=== PATIENT | male | born 1940 | race American Indian/Alaskan Native ===

== ENCOUNTER 2017-09-21 20:52 | Inpatient (IN) | payer OTHER ==
[2017-09-21] MEDS ORDERED: Albuterol-Ipratrop 3 mg / 0.5 (3 ml) UD IH STA (21:24)
--- NOTE | 2017-09-21 21:51 | ED PDOC ---
Arrival/HPI - General Chief Complaint: Shortness Of Breath Time Seen by Provider: 09/21/17 20:58 Historian: Patient - History of Present Illness Narrative History of Present Illness (Text): 09/21/17 21:17 A 77 year old male, whose past medical history includes diabetes mellitus and paroxysmal atrial fibrillation, presents to the emergency department complaining of shortness of breath. Patient reports symptom has been consistent for couple of days. Patient denies any chest pain, fever, chills, abdominal pain , or any other complaints. PMD: Dr. Terrell Victoria Time/Duration: < week (couple days) Symptom Onset: Sudden Symptom Course: Unchanged Past Medical History - Provider Review Nursing Documentation Reviewed: Yes - Cardiac Hx Congestive Heart Failure: Yes Hx Hypertension: Yes - Endocrine/Metabolic Hx Endocrine Disorders: Yes Hx Diabetes Mellitus Type 2: Yes - Psychiatric Hx Psychophysiologic Disorder: No Hx Substance Use: No - Surgical History Other/Comment: hernia repair Family/Social History - Physician Review Nursing Documentation Reviewed: Yes Family/Social History: No Known Family HX Smoking Status: Former Smoker Hx Alcohol Use: Yes Frequency of alcohol use: Socially Hx Substance Use: No Allergies/Home Meds Allergies/Adverse Reactions: Allergies No Known Allergies Allergy (Verified 09/21/17 21:02) Home Medications: Home Meds Medication Instructions Recorded Confirmed Apixaban [Eliquis] 5 mg PO BID 09/21/17 09/21/17 Atorvastatin [Lipitor] 20 mg PO DAILY 09/21/17 09/21/17 Digoxin [Digitek] 125 mcg PO DAILY 09/21/17 09/21/17 Furosemide [Lasix] 20 mg PO DAILY 09/21/17 09/21/17 Metformin HCl [Glucophage] 500 mg PO BID 09/21/17 09/21/17 Metoprolol Succinate [Toprol Xl] 50 mg PO DAILY 09/21/17 09/21/17 Review of Systems - Physician Review All systems were reviewed & negative as marked: Yes - Review of Systems Constitutional: absent: Fevers, Night Sweats Respiratory: SOB Cardiovascular: absent: Chest Pain Gastrointestinal: absent: Abdominal Pain Physical Exam Vital Signs Reviewed: Yes Vital Signs Temp Pulse Resp BP Pulse Ox 09/21/17 22:41 149/65 09/21/17 21:53 80 21 135/70 100 09/21/17 21:02 98.4 F 86 22 167/67 H 100 Temperature: Afebrile Blood Pressure: Hypertensive Pulse: Regular Respiratory Rate: Normal Appearance: Positive for: Well-Appearing Pain Distress: None Mental Status: Positive for: Alert and Oriented X 3 Finger Stick Blood Glucose: 121 - Systems Exam Ears: Present: Normal Mouth: Present: Moist Mucous Membranes Pharnyx: Present: Normal Respiratory/Chest: Present: Rhonchi (bilaterally) Cardiovascular: Present: Regular Rate and Rhythm Abdomen: Present: Normal Bowel Sounds. No: Tenderness, Distention, Peritoneal Signs Lower Extremity: Present: Edema (+1 pitting edema) Neurological: Present: GCS=15, CN II-XII Intact, Speech Normal, Other (no focal neurological deficits) Medical Decision Making ED Course and Treatment: 09/21/17 21:22 Impression: 77 year old male with shortness of breath. Physical exam shows rhonchi bilaterally; +1 pitting edema to lower extremities. Plan: -- EKG -- Chest X-ray -- Labs -- Duoneb -- Nasal Cannula O2 -- Reassess and disposition Progress Notes: 09/21/2017 22:30 Chest X-ray shows increased pulmonary markings. 09/21/17 23:[address] Joshi, whom accepts patient into service. Patient placed into telemetry bed. Dr. Vaughan consult requested. - Lab Interpretations Lab Results: 09/21/17 21:00 09/21/17 21:00 Lab Results 09/21/17 21:00: Digoxin 0.6 L 09/21/17 21:00: Sodium 150 H, Potassium 4.1, Chloride 106, Carbon Dioxide 34 H, Anion Gap 14, BUN 21, Creatinine 1.0, Est GFR ( Amer) > 60, Est GFR (Non- Af Amer) > 60, Random Glucose 127 H, Calcium 8.9, Total Bilirubin 0.5, AST 48, ALT 31, Alkaline Phosphatase 89, Lactate Dehydrogenase 672, Total Creatine Kinase 69, Troponin I 0.04, NT-Pro-B Natriuret Pep 1860 H, Total Protein 7.5, Albumin 3.7, Globulin 3.8, Albumin/Globulin Ratio 1.0 L 09/21/17 21:00: PT 17.2 H, INR 1.50 H, APTT 33.3 09/21/17 21:00: WBC 9.6, RBC 4.28, Hgb 10.6 L, Hct 31.8 L, MCV 74.3 L, MCH 24.8 L, MCHC 33.3, RDW 18.7 H, Plt Count 374, MPV 10.3, Gran % 78.3 H, Lymph % (Auto ) 16.1 L, Titus % (Auto) 4.8, Eos % (Auto) 0.6 L, Baso % (Auto) 0.2, Gran # 7.52 H, Lymph # (Auto) 1.6, Titus # (Auto) 0.5, Eos # (Auto) 0.1, Baso # (Auto) 0.02 I have reviewed the lab results: Yes - RAD Interpretation Radiology Orders: 09/21/17 21:22 CHEST PORTABLE [RAD] Stat - Medication Orders Current Medication Orders: Discontinued Medications Albuterol/Ipratropium (Duoneb 3 Mg/0.5 Mg (3 Ml) Ud) 3 ml IH ONCE STA Stop: 09/21/17 21:25 Last Admin: 09/21/17 21:33 Dose: 3 ml Furosemide (Lasix) 40 mg IVP ONCE ONE Stop: 09/21/17 22:17 Last Admin: 09/21/17 22:41 Dose: 40 mg MAR Blood Pressure Document 09/21/17 22:41 CNR (Rec: 09/21/17 22:41 CNR [id number]) Blood Pressure Blood Pressure (100/60-150/90 mm Hg) 149/65 IVP Administration Document 09/21/17 22:41 CNR (Rec: 09/21/17 22:41 CNR [id number]) Charges for Administration # of IVP Administrations 1 - Scribe Statement The provider has reviewed the documentation as recorded by the Hira Caballero Provider Scribe Attestation: All medical record entries made by the Delfinoiblavelle were at my direction and personally dictated by me. I have reviewed the chart and agree that the record accurately reflects my personal performance of the history, physical exam, medical decision making, and the department course for this patient. I have also personally directed, reviewed, and agree with the discharge instructions and disposition. Disposition/Present on Arrival - Present on Arrival Any Indicators Present on Arrival: No History of DVT/PE: No History of Uncontrolled Diabetes: No Urinary Catheter: No History of Decub. Ulcer: No History Surgical Site Infection Following: None - Disposition Have Diagnosis and Disposition been Completed?: Yes Diagnosis: CHF (congestive heart failure) Disposition: HOSPITALIZED Disposition Time: 22:59 Patient Plan: Admission Patient Problems: Current Active Problems Problem Status Onset CHF (congestive heart failure) Acute Condition: STABLE Discharge Instructions (ExitCare): Heart Failure (ED) Referrals: Terrell Victoria MD [Primary Care Provider] - Follow up with primary Forms: [facility] ([place])
[2017-09-21 21:55] LABS: BASO # 0.02 K/mm3 (0.0-2.0); BASO % 0.2 % (0.0-3.0); EOS # 0.1 (0.0-0.7); EOS % 0.6 % (1.5-5.0); GRAN # 7.52 (1.4-6.5); GRAN % 78.3 % (50.0-68.0); HEMOGLOBIN 10.6 g/dL (14.0-18.0); LYMPH # 1.6 (1.2-3.4); LYMPH % 16.1 % (22.0-35.0); MEAN CELL VOLUME 74.3 fl (80.0-105.0); MEAN CORPUSCULAR HEMOGLOBIN 24.8 pg (25.0-35.0); MEAN CORPUSCULAR HGB CONC 33.3 g/dl (31.0-37.0); MEAN PLATELET VOLUME 10.3 fl (7.0-11.0); MONO # 0.5 (0.1-0.6); MONO % 4.8 % (1.0-6.0); RBC 4.28 10^6/uL (3.5-6.1); RED CELL DISTRIBUTION WIDTH 18.7 % (11.5-14.5); WHITE BLOOD COUNT 9.6 10^3/ul (4.5-11.0)
[2017-09-21 22:00] LABS: ALBUMIN 3.7 g/dL (3.0-4.8); ALT/SGPT 31 U/L (7-56); AST/SGOT 48 U/L (17-59); BLOOD UREA NITROGEN 21 mg/dL (7-21); CALCIUM 8.9 mg/dL (8.4-10.5); GFR AFRICAN-AMERICAN > 60; GFR NON-AFRICAN AMERICAN > 60
[2017-09-21 22:11] LABS: INR 1.5 (0.93-1.08); PARTIAL THROMBOPLASTIN TIME 33.3 Seconds (25.1-36.5); PROTHROMBIN TIME 17.2 SECONDS (9.4-12.5)
[2017-09-21 22:18] LABS: B-TYPE NATRIURETIC PEPTIDE 1860 pg/mL (0-450); TROPONIN I 0.04 ng/mL
[2017-09-21] MEDS ORDERED: Albuterol-Ipratrop 3 mg / 0.5 (3 ml) UD IH PRN (22:59)
[2017-09-22 02:19] VITALS: BMI 39.1
--- NOTE | 2017-09-22 08:28 | RAD ---
HISTORY: sob COMPARISON: No prior study for comparison. FINDINGS: LUNGS: There are scattered linear and nodular opacities in the lungs more prominent at the lower lobes may be due to pulmonary venous congestion. PLEURA: No significant pleural effusion identified, no pneumothorax apparent. CARDIOVASCULAR: Normal. OSSEOUS STRUCTURES: No significant abnormalities. VISUALIZED UPPER ABDOMEN: Normal. OTHER FINDINGS: None. IMPRESSION: Baseline portable study. Reticulonodular opacities in the lungs more prominent in the lower lobes may be due to pulmonary venous congestion. Follow-up study is suggested.
[2017-09-22] MEDS: Insulin Reg-MEDIUM-Coverage SC SCH ×4 (09:58→19:00)
[2017-09-22] MEDS: Metoprolol Succinate 50 mg XL Tab PO SCH (10:00)
[2017-09-22] MEDS: Digoxin 125 mcg (0.125 mg) Tab PO SCH (10:03)
[2017-09-22] MEDS ORDERED: Morphine 4 mg/ml ISec IVP STA (10:59)
[2017-09-22 11:03] LABS: ARTERIAL BLOOD GAS HCO3 34.2 mmol/L (21-28); ARTERIAL BLOOD GAS PH 7.25 (7.35-7.45); ARTERIAL BLOOD GAS TCO2 36.6 mmol.L (22-28)
[2017-09-22 11:04] LABS: ARTERIAL BLOOD GAS PCO2 78 mm/Hg (35-45)
[2017-09-22] MEDS ORDERED: Albuterol-Ipratrop 3 mg / 0.5 (3 ml) UD IH PRN (11:32)
[2017-09-22 11:40] LABS: BASO # 0.03 K/mm3 (0.0-2.0); BASO % 0.2 % (0.0-3.0); EOS # 0.2 (0.0-0.7); EOS % 1.6 % (1.5-5.0); GRAN # 6.54 (1.4-6.5); GRAN % 53.2 % (50.0-68.0); HEMOGLOBIN 11.7 g/dL (14.0-18.0); LYMPH # 4.9 (1.2-3.4); MEAN CELL VOLUME 75.4 fl (80.0-105.0); MEAN CORPUSCULAR HEMOGLOBIN 25.1 pg (25.0-35.0); MEAN CORPUSCULAR HGB CONC 33.2 g/dl (31.0-37.0); MEAN PLATELET VOLUME 9.9 fl (7.0-11.0); MONO # 0.6 (0.1-0.6); RBC 4.67 10^6/uL (3.5-6.1); RED CELL DISTRIBUTION WIDTH 18.9 % (11.5-14.5); WHITE BLOOD COUNT 12.3 10^3/ul (4.5-11.0)
--- NOTE | 2017-09-22 11:41 | PCM.RRT ---
<Hallie Sanders - Last Filed: 09/22/17 11:30> FLIGHT OPERATIONS MANAGER Nurse Assessment - Situation Date: 09/22/17 Time FLIGHT OPERATIONS MANAGER was called: 10:40 FLIGHT OPERATIONS MANAGER Responder Arrival Time: 10:41 FLIGHT OPERATIONS MANAGER Location:: [facility] FLIGHT OPERATIONS MANAGER Reason for Call: Respiratory Distress FLIGHT OPERATIONS MANAGER Called By: RN - IV IV Inserted during FLIGHT OPERATIONS MANAGER?: No - Respiratory Oxygen Delivery Method: Non Rebreather @% Oxygen Flow Rate: 15 Received Nebulizer Treatments:: No Was the Patient Ventilated with Bag/Mask 100% O2?: Yes Secretions Suctioned?: No Was the Patient Intubated?: No Was the Patient Placed on a Ventilator?: No - Medication Medications Administered During FLIGHT OPERATIONS MANAGER: Lasix 40 mg IV - 10:53 am and 11:00 am. Nitro S/L 0.4 mg - 11:00 am - Diagnostic Test Ordered EKG: Yes Chest X-Ray: No CT Scan: No - Stat Labs Ordered FLIGHT OPERATIONS MANAGER Stat Labs Ordered: CBC, BMP, TROPONIN, LACTIC ACID, ABG CPR started during FLIGHT OPERATIONS MANAGER?: No - Vital Signs Vital Sign: Rapid Response Vital Sign Blood Pressure 181/79 Pulse Rate 78 Respiratory Rate 34 Oxygen Saturation 95 - Finger Stick Blood Glucose Finger Stick Blood Glucose: 134 - Time FLIGHT OPERATIONS MANAGER Ended Time FLIGHT OPERATIONS MANAGER Ended: 11:05 - Recommendations 5) FLIGHT OPERATIONS MANAGER Level of Care Recommendations: Transfer to ICU Notifications: Attending Physician I.Reason for FLIGHT OPERATIONS MANAGER - A) Acute Change in Patient: Subjective: respiratory distress - Neurological Status (Select all that apply): Alert, Responsive - Respiratory Oxygen Delivery Method: Non Rebreather @% Oxygen Flow Rate: 15 - Constitutional Appears: In Acute Distress - Head Head Exam: ATRAUMATIC, NORMAL INSPECTION, NORMOCEPHALIC - Eyes Eye Exam: Normal appearance. absent: Conjunctival injection, Scleral icterus - Respiratory Exam Respiratory Exam: Rales, Wheezes, Respiratory Distress. absent: Clear to Ausculation Bilateral - Cardiovascular Exam Cardiovascular Exam: Tachycardia, +S1, +S2, Murmur - GI/Abdominal Exam GI & Abdominal Exam: Soft. absent: Tenderness - Neurological Exam Neurological Exam: Alert, Awake - Extremities Exam Extremities Exam: Pedal Edema Plan - Assessment of Findings&Treatment Plan FLIGHT OPERATIONS MANAGER called at 10:43 am by RN at bedside while patient was getting an echo. House doc, iron guardrail installer residents, and attending physician responded immediately. As per RN at bedside, patient became acutely short of breath and agitated. Upon entering the room, patient was seen on nonrebreather at 100%, visibly in distress and diaphoretic. Patient was oriented and responding to questions appropriately- he complained of chest tightness, SOB, and feeling nauseous. STAT labs [CMP, Mg, Phos, Troponin, ABG shock panel] and EKG were ordered. Patient was hypertensive and tachycardic. Respiratory exam was positive for b/l wheezing and rales and patient was breathing using accessory muscles. Patient was given Lasix 80mg ivp, Nitro 0.4mg sl, and 1 breathing treatment. Patient's abg returned showing hypercapnic respiratory acidosis. ICU log loader helper Dr. Rothman came to evaluate patient and it was deemed he required transfer to the ICU. Patient was transported to the ICU and placed on BiPAP (18, 5, 100). O2 sat improved and patient was less agitated. Patient was given 60mg ivp solumedrol and 1 breathing treatment in the unit. STAT CXR was ordered and pineda was inserted. PMD Dr. Rothman aware of patient condition and transfer to the unit. Further management as per ICU team. <Wayne Snell - Last Filed: 09/22/17 13:43> FLIGHT OPERATIONS MANAGER Nurse Assessment - Vital Signs Vital Sign: Rapid Response Vital Sign Blood Pressure 181/79 Pulse Rate 78 Respiratory Rate 34 Oxygen Saturation 95 Attending/Attestation - Attestation I have personally seen and examined this patient.: Yes I have fully participated in the care of the patient.: Yes I have reviewed all pertinent clinical information, including history, physical exam and plan: Yes Notes (Text): 09/22/17 13:41 Patient was seen and examined with medical office representative during rapid response. Agreed with assessment and plan. 77 yrs old male with acute Resp failure likely due to acute Pulmonary edema. IV lasix has been given,Nebs and IV steroid has been given. EKG was reviewed. Case was discussed with ICU attending and patient is transferred to ICU. Time spend 30 minuets..
[2017-09-22 11:51] LABS: ALBUMIN 4.1 g/dL (3.0-4.8); ALT/SGPT 37 U/L (7-56); AST/SGOT 43 U/L (17-59); BLOOD UREA NITROGEN 18 mg/dL (7-21); CALCIUM 9.2 mg/dL (8.4-10.5); GFR AFRICAN-AMERICAN > 60; GFR NON-AFRICAN AMERICAN > 60; MAGNESIUM 2.3 mg/dL (1.7-2.2)
[2017-09-22 12:01] LABS: TROPONIN I 0.02 ng/mL
--- NOTE | 2017-09-22 12:03 | RAD ---
HISTORY: acute shortness of breath COMPARISON: 09/21/2017 FINDINGS: LUNGS: There is a diffuse alveolar infiltrate. This could represent pulmonary edema or pneumonia. Clinical correlation PLEURA: No significant pleural effusion identified, no pneumothorax apparent. CARDIOVASCULAR: Normal. OSSEOUS STRUCTURES: No significant abnormalities. VISUALIZED UPPER ABDOMEN: Normal. OTHER FINDINGS: None. IMPRESSION: There is a diffuse alveolar infiltrate. This could represent pulmonary edema or pneumonia. Clinical correlation
[2017-09-22] MEDS ORDERED: Nitroglycerin 50mg in D5W 50 MG/250 ML BOTTLE IV ONE (12:05)
[2017-09-22] MEDS ORDERED: Nitroglycerin 50mg in D5W 50 MG/250 ML BOTTLE IV PRN (12:05)
[2017-09-22] MEDS ORDERED: Metoprolol 1 mg/ml Inj IVP ONE (12:20)
[2017-09-22] MEDS ORDERED: diltiaZEM IVPB 100mg in NS 100 ML IV PRN (12:33)
[2017-09-22 12:47] LABS: ARTERIAL BLOOD GAS HCO3 32.2 mmol/L (21-28); ARTERIAL BLOOD GAS O2 SAT 99.4 % (95-98); ARTERIAL BLOOD GAS PCO2 67 mm/Hg (35-45); ARTERIAL BLOOD GAS PH 7.29 (7.35-7.45); ARTERIAL BLOOD GAS TCO2 34.3 mmol.L (22-28)
[2017-09-22] MEDS: cefTRIAXone 1 gm 1 GM/100 ML BAG IVPB SCH (16:25)
[2017-09-22] MEDS: Azithromycin 500MG/NS 250ml 500 MG/250 ML BAG IVPB SCH (16:26)
[2017-09-22] MEDS: Albuterol-Ipratrop 3 mg / 0.5 (3 ml) UD IH SCH ×3 (16:46→23:34)
--- NOTE | 2017-09-22 17:53 | CON ---
DATE: 09/22/2017 CARDIOLOGY CONSULTATION HISTORY OF PRESENT ILLNESS: The patient is a 77-year-old male who presents with exertional shortness of breath as well as progressing the shortness of breath at rest. He denies chest pain. PAST MEDICAL HISTORY: Includes recently placed on anticoagulation at [facility] for what was described as atrial fibrillation. He also was admitted there recently for an episode of CHF. The patient's past medical history is free of myocardial infarctions in the past. He suffers from diabetes mellitus, hypertension, and hypercholesterolemia. He denies chest pain. SOCIAL HISTORY: The patient does not smoke. The patient is an systems accountant, working in the [employer] REVIEW OF SYSTEMS: A 14-point review of systems is reviewed in detail. Besides dyspnea and pedal edema, there are no other cardiac symptoms noted. PHYSICAL EXAMINATION: VITAL SIGNS: Blood pressure 146/51, the heart rate in the 60s, normal sinus rhythm. NECK: Negative JVD. LUNGS: Crackles at the bases. HEART: Reveals S1, S2 with a 2/6 systolic ejection murmur as well as a 3/6 diastolic murmur. EXTREMITIES: 1 to 2 plus edema. EKG shows normal sinus rhythm with nonspecific ST-T changes. LABORATORY DATA: Hemoglobin is 10.6. ProBNP is 1860. Troponin is negative x1. Glucose is 127. IMPRESSION: 1. Acute systolic congestive heart failure. 2. Pedal edema. 3. Aortic insufficiency. 4. Paroxysmal atrial fibrillation. 5. Diabetes mellitus. 6. Hypertension. 7. Hypercholesterolemia. Given these findings, we will increase his Lasix to 40 IV b.i.d. We will obtain an echocardiogram to evaluate his LV function as well as his aortic insufficiency. Tony Vaughan MD
[2017-09-22] MEDS: MethylPREDNISolone 40 mg Vial IVP SCH ×2 (17:57→22:00)
--- NOTE | 2017-09-22 18:05 | HP ---
HISTORY OF PRESENT ILLNESS: I was called down to the emergency room to see Mr. Sutton. He is a 77-year-old -[place] man who came to the emergency department with shortness of breath that had been consistent for a couple of days. His legs are getting swollen. PAST MEDICAL HISTORY: He has a medical history of diabetes, atrial fibrillation, congestive heart failure in the past. He has got hypertension, diabetes, heart failure. FAMILY HISTORY: He has hypertension in the family and diabetes in the family. SOCIAL HISTORY: He is a former smoker. He still drinks alcohol socially. No substance abuse. ALLERGIES: HE HAS NO KNOWN DRUG ALLERGIES. MEDICATIONS: He takes Eliquis, Lipitor for high cholesterol, digoxin, Lasix, Glucophage and Toprol. REVIEW OF SYSTEMS: No acute vision or hearing changes. No sore throat. No chest pain or palpitation, but he is short of breath with dyspnea on exertion. His legs are very swollen. No abdominal pain, nausea, vomiting, constipation, diarrhea. Skin for the most part is intact. No rashes or ulcers he appreciates. Not anxious. No sweating. He is comfortable. PHYSICAL EXAMINATION: VITAL SIGNS: He has got 98.4 temp, 86 pulse, 22 respiratory rate, 167/67 blood pressure, 100% O2 sat on 2 L. HEENT: His head is atraumatic, normocephalic. He is alert and oriented x3. He is sitting out of bed. He cannot lie down flat at this time. His eyes: Extraocular muscles are intact. Pupils equal, reactive to light and accommodation. Throat is moist. NECK: Supple. HEART: Regular rate. LUNGS: Decreased breath sounds, congestion, rales bilaterally, rhonchi, changes with cough. He told me that the medicine I gave him made him pee, is making him feel better. ABDOMEN: Soft, nontender. Positive bowel sounds. No guarding. No rebound. No CVA tenderness, but he is obese. EXTREMITIES: +2/4 pitting edema bilateral to the ankles. GCS is 15. Cranial nerves II through XII grossly intact. Speech is normal. SKIN: For the most part that I could tell is intact. No apparent rashes or ulcers. LYMPHATICS: Thyroid midline. No appreciable lymphadenopathy. LABORATORY DATA: He had a lot of tests done in the emergency room. He has a 150 sodium, potassium 4.1, BUN 21, creatinine 1, GFR is greater than 60, sugar is 127, calcium is 8.9, total bili is 0.5, AST is 48, ALT is 31, alk phos is 89, lactate dehydrogenase is 672, total creatine kinase is 69. Troponin I is 0.04. BNP is high at 1860, total protein 7.5. He has an INR of 1.5. He has a 9.6 white count, 10.6 hemoglobin, 31.8 hematocrit with a 374 platelets. There is a chest x-ray pending. IMPRESSION AND PLAN: He will have a consult with Cardiology. He will be on intravenous Lasix, insulin coverage, oxygen, physical therapy. He is having a hard time walking, he tells me. He is here for congestive heart failure, medicines and maybe some physical therapy. We will continue aggressive treatment and care on Loy Sutton. Poli Joshi DO
--- NOTE | 2017-09-22 19:12 | CARD ---
APPROVED REPORT EXAM: Two-dimensional and M-mode echocardiogram with Doppler and color Doppler. INDICATION Congestive Heart Failure 2D DIMENSIONS Left Atrium (2D)4.2 (1.6-4.0cm)IVSd1.4 (0.7-1.1cm) LVDd5.6 (3.9-5.9cm)PWd1.3 (0.7-1.1cm) LVDs3.7 (2.5-4.0cm)FS (%) 33.8 % LVEF (%)62.0 (>50%) M-Mode DIMENSIONS Aortic Root3.40 (2.2-3.7cm)Aortic Cusp Exc.2.10 (1.5-2.0cm) Aortic Valve AoV Peak Hxlfgidf130.0cm/Soraya Peak GR.20mmHg Mitral Valve E/A ratio0.0 TDI E/Lateral E'0.0E/Medial E'0.0 Tricuspid Valve TR Peak [id number] [id number] Peak Gr.72mmHg [id number] LEFT VENTRICLE The left ventricle is normal size. There is mild concentric left ventricular hypertrophy. The left ventricular function is normal. The left ventricular ejection fraction is within the normal range. There is normal LV segmental wall motion. Transmitral Doppler flow pattern is Grade I-abnormal relaxation pattern. RIGHT VENTRICLE The right ventricle is normal size. There is normal right ventricular wall thickness. The right ventricular systolic function is normal. ATRIA The left atrium is mildly dilated. The right atrium is mildly dilated. AORTIC VALVE The aortic valve is mildly sclerotic. There is moderate aortic regurgitation. MITRAL VALVE The mitral valve is mildly thickened. Mitral regurgitation is mild to moderate. TRICUSPID VALVE There is severe pulmonary hypertension. GREAT VESSELS The aortic root is normal in size. PERICARDIAL EFFUSION There is a trace loculated anterior pericardial effusion. <Conclusion> The left ventricle is normal size. There is mild concentric left ventricular hypertrophy. The left ventricular function is normal. The left ventricular ejection fraction is within the normal range. There is normal LV segmental wall motion. Transmitral Doppler flow pattern is Grade I-abnormal relaxation pattern. There is moderate aortic regurgitation. Mitral regurgitation is mild to moderate. There is severe pulmonary hypertension.
--- NOTE | 2017-09-22 21:10 | CARD ---
APPROVED REPORT EKG Measurement Heart [id number] <Conclusion> Sinus tachycardia Nonspecific ST abnormality Abnormal ECG
--- NOTE | 2017-09-22 22:12 | CARD ---
APPROVED REPORT EKG Measurement Heart [id number] <Conclusion> Normal sinus rhythm Possible Left atrial enlargement Borderline ECG
--- NOTE | 2017-09-23 01:06 | CON ---
DATE: 09/22/2017 HISTORY OF PRESENT ILLNESS: This is a 77-year-old gentleman with history of diabetes mellitus type 2, paroxysmal atrial fibrillation - on Eliquis, who presented to emergency department yesterday with shortness of breath, which was progressively getting worse over the last couple of days. He denies any cough or chest pains. He also denies chest tightness associated with it. Of note, he was discharged from [facility] where he had to be intubated for severe community-acquired pneumonia. After discharge and initial improvement, his respiratory complaints started to recur, and it culminated with admission to [facility] ER and then hospital. PAST MEDICAL HISTORY: Paroxysmal atrial fibrillation, hypertension, CHF, diabetes mellitus type 2. SOCIAL HISTORY: The patient is a former smoker. No alcohol or illicit drug abuse. ALLERGIES: NKDA. HOME MEDICATIONS: Eliquis, Lipitor, digoxin, Lasix, metformin, and metoprolol. FAMILY HISTORY: Noncontributory. REVIEW OF SYSTEMS: Review of 12-organ system other than mentioned in history of present illness is negative. PHYSICAL EXAMINATION: VITAL SIGNS: Heart rate 75, respiratory rate 24, oxygen saturation 100% on 60% FIO2, the patient is on BiPAP 18/5 with FIO2 60%, blood pressure 141/84. HEENT: Head and neck atraumatic. LUNGS: Clear to auscultation bilaterally (the patient got substantial improvement on treatment with bronchodilators, steroids, Lasix, and application of BiPAP). The patient has been wheezing prior to urgent measures as outlined above. ABDOMEN: Soft, nontender, nondistended. MUSCULOSKELETAL: 1+ bilateral pedal and ankle edema. NEUROLOGIC: The patient moves all extremities spontaneously. SKIN: Moist. PSYCHIATRIC: The patient was initially in moderate respiratory distress; however, not in distress any more, and clinically substantially improved. LABORATORY DATA: WBC 12.3, hemoglobin 11.7, platelet count 434. ABG prior to BiPAP, 7.25/78/231 on 100% FIO2, lactic acid 1.7. After application of BiPAP, pH 7.29/67/121, FIO2 still 100% (however, later tapered down to 60%), lactic acid 1.2. Sodium 150, potassium 4.6, chloride 103, carbon dioxide 34, BUN 18, creatinine 1.0, glucose 213, AST 43, ALT 37, total bilirubin 0.8. Troponin 0.02, down from 0.04. ProBNP 1860. Digoxin 0.6. INR 1.5. PTT 33.3. MEDICATIONS: DuoNeb p.r.n. and every 4 hours, Eliquis 5 mg p.o. b.i.d., Lipitor, Cardizem drip, digoxin, Lasix 40 mg IV b.i.d., regular insulin sliding scale medium protocol, Solu-Medrol 40 mg IV q.8, metoprolol, nitroglycerin, Protonix, ceftriaxone, azithromycin. Chest x-ray showed diffuse alveolar infiltrates; pulmonary edema versus infectious etiology cannot be ruled out. Echocardiogram was done earlier, official report is pending; however, preliminary view did not show severe left ventricular systolic or diastolic dysfunction. No right ventricular dilatation or hypokinesis. ASSESSMENT AND PLAN: This is a 77-year-old gentleman, who presented with combined hypercapnic and hypoxemic respiratory failure, which substantially improved after application of BiPAP, bronchodilators, steroids, antibiotics, and diuretics. The patient is not diaphoretic. He is not in respiratory or otherwise distress. We will gradually taper down his noninvasive positive pressure ventilatory support. We will gradually decrease FIO2 supplementation. We will continue with conservative fluid and oxygen management. We will continue with steroid taper, bronchodilators, and antibiotics. Daily chest x-ray. We will get urine for streptococcal and Legionella antigen. Blood culture, urine culture and procalcitonin was ordered. EKG did not show specific ischemic changes. Troponin x2 negative since yesterday. The patient does not have any chest pain. We will continue with therapeutic anticoagulation with Eliquis, which makes VTE/PE/DVT as well as acute primary coronary event less likely. We will continue with GI prophylaxis. ccm time 40 min Mainor Rothman MD MTDD
[2017-09-23] MEDS: Insulin Reg-MEDIUM-Coverage SC SCH ×5 (04:10→20:56)
[2017-09-23] MEDS: Albuterol-Ipratrop 3 mg / 0.5 (3 ml) UD IH SCH ×4 (04:22→20:38)
[2017-09-23] MEDS: MethylPREDNISolone 40 mg Vial IVP SCH ×3 (06:12→21:01)
--- NOTE | 2017-09-23 06:48 | CP.CCUPN ---
<Payton Stallings - Last Filed: 09/23/17 11:44> CCU Subjective - Physician Review Subjective (Free Text): 09/23/17 08:32 Patient with no acute events overnight. Was on bipap all night and continued to improve. This AM patient states he's feeling much better. States the sob has resolved. Denies chest pain, abdominal pain, nausea, vomiting or diarrhea. Critical Care Time Spent (in minutes): 45 CCU Objective - Vital Signs / Intake & Output Vital Signs (Last 4 hours): Vital Signs Pulse Resp BP Pulse Ox 09/23/17 06:20 72 21 100 09/23/17 06:10 72 23 100 09/23/17 06:01 85 24 109/51 L 76 L 09/23/17 06:00 81 26 H 91 L 09/23/17 05:50 77 19 100 09/23/17 05:40 81 27 H 97 09/23/17 05:30 75 20 99 09/23/17 05:20 74 22 100 09/23/17 05:10 98 H 31 H 100 09/23/17 05:00 78 23 136/56 L 99 09/23/17 04:50 77 23 100 09/23/17 04:40 74 20 100 09/23/17 04:30 75 22 100 09/23/17 04:20 75 24 100 09/23/17 04:10 76 22 100 09/23/17 04:00 80 25 H 146/61 100 09/23/17 03:50 65 20 99 09/23/17 03:40 60 21 100 09/23/17 03:30 62 21 99 09/23/17 03:20 64 16 100 09/23/17 03:10 59 L 16 100 09/23/17 03:00 64 16 118/59 L 100 09/23/17 02:50 66 22 100 Intake and Output (Last 8hrs): Intake & Output 09/22/17 09/22/17 09/23/17 14:59 22:59 06:59 Intake Total 620 Output Total 1200 Balance -580 Intake: IV 380 Left Hand 380 Oral 240 Output: Urine 1200 Urethral ([place]) 1200 - Physical Exam Head: Positive for: Atraumatic, Normocephalic Pupils: Positive for: PERRL Extroacular Muscles: Positive for: EOMI Conjunctiva: Positive for: Normal Ears: Positive for: Normal Mouth: Positive for: Moist Mucous Membranes Pharnyx: Positive for: Normal Respiratory/Chest: Positive for: Clear to Auscultation, Good Air Exchange. Negative for: Respiratory Distress, Accessory Muscle Use, Wheezes, Decreased Breath Sounds, Rales, Retracting, Rhonchi, Tachypneic, Tender to Palpation Cardiovascular: Positive for: Regular Rate and Rhythm, Murmurs, Normal S1, S2, Irregular Rhythm. Negative for: Tachycardic, Bradycardic, Rub, Muffled Abdomen: Positive for: Normal Bowel Sounds, Other (obese abdomen.). Negative for: Tenderness, Distention, Peritoneal Signs Lower Extremity: Positive for: Edema (+1 pitting edema) Neurological: Positive for: GCS=15, CN II-XII Intact, Speech Normal, Other (no focal neurological deficits) Skin: Positive for: Dry, Normal Color Psychiatric: Positive for: Alert, Oriented x 3, Normal Insight, Normal Concentration - Medications Active Medications: Active Medications Generic Name Dose Route Start Last Admin Trade Name Freq PRN Reason Stop Dose Admin Albuterol/Ipratropium 3 ml 09/22/17 15:30 09/23/17 04:22 Duoneb 3 Mg/0.5 Mg (3 Ml) Ud IH 3 ml [id number] CARMINA Administration Albuterol/Ipratropium 3 ml 09/22/17 11:32 Duoneb 3 Mg/0.5 Mg (3 Ml) Ud IH Q2H PRN Shortness of Breath Apixaban 5 mg 09/22/17 10:00 09/22/17 18:06 Eliquis PO 5 mg BID CARMINA Administration Protocol Atorvastatin Calcium 20 mg 09/22/17 10:00 09/22/17 14:04 Lipitor PO Not Given DAILY CARMINA Digoxin 0.125 mg 09/22/17 10:00 09/22/17 10:03 Digoxin PO Not Given DAILY CARMINA Furosemide 40 mg 09/22/17 10:00 09/22/17 18:06 Lasix IVP 40 mg BID CARMINA Administration Ceftriaxone Sodium 1 gm in 100 mls @ 100 mls/hr 09/22/17 11:45 09/22/17 16:25 Rocephin 1 Gram Ivpb IVPB 100 mls/hr DAILY CARMINA Administration Protocol Azithromycin 500 mg in 250 mls @ 167 mls/hr 09/22/17 11:45 09/22/17 16:26 Zithromax 500mg In Ns IVPB 167 mls/hr DAILY CARMINA Administration Protocol Nitroglycerin/Dextrose 50 mg in 250 mls @ 1.5 mls/hr 09/22/17 12:05 Nitroglycerin 50 Mg/250 Ml D5w IV .Q24H PRN Pain, moderate (4-7) Protocol 5 MCG/MIN diltiaZEM IVPB 100mg in NS 100 mls @ 5 mls/hr 09/22/17 12:33 Cardizem 100mg In Ns IV .Q20H PRN TITRATE PER MD ORDER Protocol 5 MG/HR Insulin Human Regular 0 units 09/22/17 15:00 09/23/17 04:10 Humulin R Med SC Not Given Q4H CARMINA Protocol Methylprednisolone 40 mg 09/22/17 14:00 09/23/17 06:12 Solu-Medrol IVP 40 mg Q8 CARMINA Administration Metoprolol Succinate 50 mg 09/22/17 10:00 09/22/17 10:00 Toprol Xl PO Not Given DAILY CARMINA Pantoprazole Sodium 40 mg 09/23/17 10:00 Protonix Inj IVP DAILY CARMINA - Patient Studies Lab Studies: Lab Studies 09/23/17 09/22/17 09/22/17 Range/Units 06:17 20:33 16:46 WBC (4.5-11.0) 10^3/ul RBC (3.5-6.1) 10^6/uL Hgb (14.0-18.0) g/dL Hct (42.0-52.0) % MCV (80.0-105.0) fl MCH (25.0-35.0) pg MCHC (31.0-37.0) g/dl RDW (11.5-14.5) % Plt Count (120.0-450.0) 10^3/uL MPV (7.0-11.0) fl Gran % (50.0-68.0) % Lymph % (Auto) (22.0-35.0) % [place] % (Auto) (1.0-6.0) % Eos % (Auto) (1.5-5.0) % Baso % (Auto) (0.0-3.0) % Gran # (1.4-6.5) Lymph # (Auto) (1.2-3.4) [place] # (Auto) (0.1-0.6) Eos # (Auto) (0.0-0.7) Baso # (Auto) (0.0-2.0) K/mm3 D-Dimer, Quantitative (0-243) ng/mL pCO2 (35-45) mm/Hg pO2 (80-100) mm/Hg HCO3 (21-28) mmol/L ABG pH (7.35-7.45) ABG Total CO2 (22-28) mmol.L ABG O2 Saturation (95-98) % ABG Base Excess (-2.0-3.0) mmol/L ABG Potassium (3.6-5.2) mmol/L Sodium (132-148) mmol/L Chloride (98-107) mmol/L Glucose (75-110) mg/dl Lactate (0.7-2.1) mmol/L FiO2 % Potassium (3.6-5.0) mmol/L Carbon Dioxide (21-33) mmol/L Anion Gap (10-20) BUN (7-21) mg/dL Creatinine (0.8-1.5) mg/dl Est GFR ( Amer) Est GFR (Non-Af Amer) POC Glucose (mg/dL) 162 H 153 H 151 H (65-110) mg/dL Random Glucose (70-110) mg/dL Calcium (8.4-10.5) mg/dL Phosphorus (2.5-4.5) mg/dL Magnesium (1.7-2.2) mg/dL Total Bilirubin (0.2-1.3) mg/dL AST (17-59) U/L ALT (7-56) U/L Alkaline Phosphatase (38-126) U/L Troponin I ng/mL Total Protein (5.8-8.3) g/dL Albumin (3.0-4.8) g/dL Globulin gm/dL Albumin/Globulin Ratio (1.1-1.8) Procalcitonin (0.19-0.49) NG/ML Arterial Blood Potassium (3.6-5.2) mmol/L 09/22/17 09/22/17 09/22/17 Range/Units 13:15 12:40 11:30 WBC (4.5-11.0) 10^3/ul RBC (3.5-6.1) 10^6/uL Hgb (14.0-18.0) g/dL Hct (42.0-52.0) % MCV (80.0-105.0) fl MCH (25.0-35.0) pg MCHC (31.0-37.0) g/dl RDW (11.5-14.5) % Plt Count (120.0-450.0) 10^3/uL MPV (7.0-11.0) fl Gran % (50.0-68.0) % Lymph % (Auto) (22.0-35.0) % [place] % (Auto) (1.0-6.0) % Eos % (Auto) (1.5-5.0) % Baso % (Auto) (0.0-3.0) % Gran # (1.4-6.5) Lymph # (Auto) (1.2-3.4) [place] # (Auto) (0.1-0.6) Eos # (Auto) (0.0-0.7) Baso # (Auto) (0.0-2.0) K/mm3 D-Dimer, Quantitative 2480 H (0-243) ng/mL pCO2 67 H (35-45) mm/Hg pO2 121.0 H (80-100) mm/Hg HCO3 32.2 H (21-28) mmol/L ABG pH 7.29 L (7.35-7.45) ABG Total CO2 34.3 H (22-28) mmol.L ABG O2 Saturation 99.4 H (95-98) % ABG Base Excess 3.6 H (-2.0-3.0) mmol/L ABG Potassium 3.8 (3.6-5.2) mmol/L Sodium 143.0 (132-148) mmol/L Chloride 108.0 H (98-107) mmol/L Glucose 195 H (75-110) mg/dl Lactate 1.2 (0.7-2.1) mmol/L FiO2 100.0 % Potassium (3.6-5.0) mmol/L Carbon Dioxide (21-33) mmol/L Anion Gap (10-20) BUN (7-21) mg/dL Creatinine (0.8-1.5) mg/dl Est GFR ( Amer) Est GFR (Non-Af Amer) POC Glucose (mg/dL) (65-110) mg/dL Random Glucose (70-110) mg/dL Calcium (8.4-10.5) mg/dL Phosphorus (2.5-4.5) mg/dL Magnesium (1.7-2.2) mg/dL Total Bilirubin (0.2-1.3) mg/dL AST (17-59) U/L ALT (7-56) U/L Alkaline Phosphatase (38-126) U/L Troponin I ng/mL Total Protein (5.8-8.3) g/dL Albumin (3.0-4.8) g/dL Globulin gm/dL Albumin/Globulin Ratio (1.1-1.8) Procalcitonin 0.06 L (0.19-0.49) NG/ML Arterial Blood Potassium 3.8 (3.6-5.2) mmol/L 09/22/17 09/22/17 09/22/17 Range/Units 11:30 11:30 11:00 WBC 12.3 H D (4.5-11.0) 10^3/ul RBC 4.67 (3.5-6.1) 10^6/uL Hgb 11.7 L (14.0-18.0) g/dL Hct 35.2 L (42.0-52.0) % MCV 75.4 L (80.0-105.0) fl MCH 25.1 (25.0-35.0) pg MCHC 33.2 (31.0-37.0) g/dl RDW 18.9 H (11.5-14.5) % Plt Count 434 (120.0-450.0) 10^3/uL MPV 9.9 (7.0-11.0) fl Gran % 53.2 (50.0-68.0) % Lymph % (Auto) 40.0 H (22.0-35.0) % [place] % (Auto) 5.0 (1.0-6.0) % Eos % (Auto) 1.6 (1.5-5.0) % Baso % (Auto) 0.2 (0.0-3.0) % Gran # 6.54 H (1.4-6.5) Lymph # (Auto) 4.9 H (1.2-3.4) [place] # (Auto) 0.6 (0.1-0.6) Eos # (Auto) 0.2 (0.0-0.7) Baso # (Auto) 0.03 (0.0-2.0) K/mm3 D-Dimer, Quantitative (0-243) ng/mL pCO2 78 H* (35-45) mm/Hg pO2 231.0 H (80-100) mm/Hg HCO3 34.2 H (21-28) mmol/L ABG pH 7.25 L (7.35-7.45) ABG Total CO2 36.6 H (22-28) mmol.L ABG O2 Saturation 100.0 H (95-98) % ABG Base Excess 4.3 H (-2.0-3.0) mmol/L ABG Potassium 3.9 (3.6-5.2) mmol/L Sodium 150 H 143.0 (132-148) mmol/L Chloride 103 109.0 H (98-107) mmol/L Glucose 148 H (75-110) mg/dl Lactate 1.7 (0.7-2.1) mmol/L FiO2 100.0 % Potassium 4.6 (3.6-5.0) mmol/L Carbon Dioxide 34 H (21-33) mmol/L Anion Gap 19 (10-20) BUN 18 (7-21) mg/dL Creatinine 1.0 (0.8-1.5) mg/dl Est GFR ( Amer) > 60 Est GFR (Non-Af Amer) > 60 POC Glucose (mg/dL) (65-110) mg/dL Random Glucose 213 H (70-110) mg/dL Calcium 9.2 (8.4-10.5) mg/dL Phosphorus 5.7 H (2.5-4.5) mg/dL Magnesium 2.3 H (1.7-2.2) mg/dL Total Bilirubin 0.8 (0.2-1.3) mg/dL AST 43 (17-59) U/L ALT 37 (7-56) U/L Alkaline Phosphatase 104 (38-126) U/L Troponin I 0.02 D ng/mL Total Protein 8.2 (5.8-8.3) g/dL Albumin 4.1 (3.0-4.8) g/dL Globulin 4.1 gm/dL Albumin/Globulin Ratio 1.0 L (1.1-1.8) Procalcitonin (0.19-0.49) NG/ML Arterial Blood Potassium 3.9 (3.6-5.2) mmol/L 09/22/17 09/22/17 Range/Units 10:49 07:15 WBC (4.5-11.0) 10^3/ul RBC (3.5-6.1) 10^6/uL Hgb (14.0-18.0) g/dL Hct (42.0-52.0) % MCV (80.0-105.0) fl MCH (25.0-35.0) pg MCHC (31.0-37.0) g/dl RDW (11.5-14.5) % Plt Count (120.0-450.0) 10^3/uL MPV (7.0-11.0) fl Gran % (50.0-68.0) % Lymph % (Auto) (22.0-35.0) % [place] % (Auto) (1.0-6.0) % Eos % (Auto) (1.5-5.0) % Baso % (Auto) (0.0-3.0) % Gran # (1.4-6.5) Lymph # (Auto) (1.2-3.4) [place] # (Auto) (0.1-0.6) Eos # (Auto) (0.0-0.7) Baso # (Auto) (0.0-2.0) K/mm3 D-Dimer, Quantitative (0-243) ng/mL pCO2 (35-45) mm/Hg pO2 (80-100) mm/Hg HCO3 (21-28) mmol/L ABG pH (7.35-7.45) ABG Total CO2 (22-28) mmol.L ABG O2 Saturation (95-98) % ABG Base Excess (-2.0-3.0) mmol/L ABG Potassium (3.6-5.2) mmol/L Sodium (132-148) mmol/L Chloride (98-107) mmol/L Glucose (75-110) mg/dl Lactate (0.7-2.1) mmol/L FiO2 % Potassium (3.6-5.0) mmol/L Carbon Dioxide (21-33) mmol/L Anion Gap (10-20) BUN (7-21) mg/dL Creatinine (0.8-1.5) mg/dl Est GFR ( Amer) Est GFR (Non-Af Amer) POC Glucose (mg/dL) 134 H 111 H (65-110) mg/dL Random Glucose (70-110) mg/dL Calcium (8.4-10.5) mg/dL Phosphorus (2.5-4.5) mg/dL Magnesium (1.7-2.2) mg/dL Total Bilirubin (0.2-1.3) mg/dL AST (17-59) U/L ALT (7-56) U/L Alkaline Phosphatase (38-126) U/L Troponin I ng/mL Total Protein (5.8-8.3) g/dL Albumin (3.0-4.8) g/dL Globulin gm/dL Albumin/Globulin Ratio (1.1-1.8) Procalcitonin (0.19-0.49) NG/ML Arterial Blood Potassium (3.6-5.2) mmol/L Laboratory Results - last 24 hr 09/22/17 09/22/17 09/22/17 07:15 10:49 11:00 WBC RBC Hgb Hct MCV MCH MCHC RDW Plt Count MPV Gran % Lymph % (Auto) [place] % (Auto) Eos % (Auto) Baso % (Auto) Gran # Lymph # (Auto) [place] # (Auto) Eos # (Auto) Baso # (Auto) D-Dimer, Quantitative pCO2 78 H* pO2 231.0 H HCO3 34.2 H ABG pH 7.25 L ABG Total CO2 36.6 H ABG O2 Saturation 100.0 H ABG Base Excess 4.3 H ABG Potassium 3.9 Sodium 143.0 Chloride 109.0 H Glucose 148 H Lactate 1.7 FiO2 100.0 Potassium Carbon Dioxide Anion Gap BUN Creatinine Est GFR ( Amer) Est GFR (Non-Af Amer) POC Glucose (mg/dL) 111 H 134 H Random Glucose Calcium Phosphorus Magnesium Total Bilirubin AST ALT Alkaline Phosphatase Troponin I Total Protein Albumin Globulin Albumin/Globulin Ratio Procalcitonin Arterial Blood Potassium 3.9 09/22/17 09/22/17 09/22/17 11:30 11:30 11:30 WBC 12.3 H D RBC 4.67 Hgb 11.7 L Hct 35.2 L MCV 75.4 L MCH 25.1 MCHC 33.2 RDW 18.9 H Plt Count 434 MPV 9.9 Gran % 53.2 Lymph % (Auto) 40.0 H [place] % (Auto) 5.0 Eos % (Auto) 1.6 Baso % (Auto) 0.2 Gran # 6.54 H Lymph # (Auto) 4.9 H [place] # (Auto) 0.6 Eos # (Auto) 0.2 Baso # (Auto) 0.03 D-Dimer, Quantitative 2480 H pCO2 pO2 HCO3 ABG pH ABG Total CO2 ABG O2 Saturation ABG Base Excess ABG Potassium Sodium 150 H Chloride 103 Glucose Lactate FiO2 Potassium 4.6 Carbon Dioxide 34 H Anion Gap 19 BUN 18 Creatinine 1.0 Est GFR ( Amer) > 60 Est GFR (Non-Af Amer) > 60 POC Glucose (mg/dL) Random Glucose 213 H Calcium 9.2 Phosphorus 5.7 H Magnesium 2.3 H Total Bilirubin 0.8 AST 43 ALT 37 Alkaline Phosphatase 104 Troponin I 0.02 D Total Protein 8.2 Albumin 4.1 Globulin 4.1 Albumin/Globulin Ratio 1.0 L Procalcitonin Arterial Blood Potassium 09/22/17 09/22/17 09/22/17 12:40 13:15 16:46 WBC RBC Hgb Hct MCV MCH MCHC RDW Plt Count MPV Gran % Lymph % (Auto) [place] % (Auto) Eos % (Auto) Baso % (Auto) Gran # Lymph # (Auto) [place] # (Auto) Eos # (Auto) Baso # (Auto) D-Dimer, Quantitative pCO2 67 H pO2 121.0 H HCO3 32.2 H ABG pH 7.29 L ABG Total CO2 34.3 H ABG O2 Saturation 99.4 H ABG Base Excess 3.6 H ABG Potassium 3.8 Sodium 143.0 Chloride 108.0 H Glucose 195 H Lactate 1.2 FiO2 100.0 Potassium Carbon Dioxide Anion Gap BUN Creatinine Est GFR ( Amer) Est GFR (Non-Af Amer) POC Glucose (mg/dL) 151 H Random Glucose Calcium Phosphorus Magnesium Total Bilirubin AST ALT Alkaline Phosphatase Troponin I Total Protein Albumin Globulin Albumin/Globulin Ratio Procalcitonin 0.06 L Arterial Blood Potassium 3.8 09/22/17 09/23/17 20:33 06:17 WBC RBC Hgb Hct MCV MCH MCHC RDW Plt Count MPV Gran % Lymph % (Auto) [place] % (Auto) Eos % (Auto) Baso % (Auto) Gran # Lymph # (Auto) [place] # (Auto) Eos # (Auto) Baso # (Auto) D-Dimer, Quantitative pCO2 pO2 HCO3 ABG pH ABG Total CO2 ABG O2 Saturation ABG Base Excess ABG Potassium Sodium Chloride Glucose Lactate FiO2 Potassium Carbon Dioxide Anion Gap BUN Creatinine Est GFR ( Amer) Est GFR (Non-Af Amer) POC Glucose (mg/dL) 153 H 162 H Random Glucose Calcium Phosphorus Magnesium Total Bilirubin AST ALT Alkaline Phosphatase Troponin I Total Protein Albumin Globulin Albumin/Globulin Ratio Procalcitonin Arterial Blood Potassium EKG/Cardiology Studies: Cardiology / EKG Studies 09/22/17 11:28 EKG [ELECTROCARDIOGRAM] Stat Comment: Reason For Exam: acs Fingerstick Blood Sugar Results: 162 Results Reviewed to Date: Yes Critical Care Progress Note - Nutrition Nutrition: Nutrition Category Date Time Status NPO Diet [DIET] Diets 09/22/17 Lunch Ordered Assessment/Plan - Assessment and Plan (Free Text) Assessment: Patient is a 77 y/o with pmh of afib on eliquis admitted with hypercapneic respiratory failure responded well to bipap, diuresis, bronchodilators and solumedrol. Plan: Neuro- Stable at baseline Pulm: Hypercapneic respiratory failure likely due to underelying copd and flash pulmonary edema. - respiratory status improved with bipap, bronchodilators and solumedrol. - Now on nasal cannula, will maintain S - oN ABX for copd exacerbation - Head of bed above 35 degrees. Cardiology: h/o paroxysmal AFib- rate controlled will continue eliquis, toprol Echo with diastolic dysfunction and severe pulmonary htn. On lasix 40 ivp bid Cardiology following- recommending to hold eliquis, start plavix 300 mg once and plavix 75 mg starting tomorrow. NPO past midnight for right and left sided cardiac cath. ID- No leukocytosis, low procal, afebrile. Pending cultures. On rocephin and zithromax for copd exacerbation. Endo: insulin sliding scale for h/o dm. carb controlled diet. fingerstick achs. Heme: drop in h/h, no overt sign of bleeding, will monitor for now. Gi- on ppi for gi prophylaxis. Renal: Mild hyperkalemia- will give a stat dose kayexalate. DVT prophylaxis: mechanical compressive devices. Patient seen, examined and case discussed with the outside maintenance worker. - Date & Time Date: 09/23/17 Time: 11:35 <Mainor Rothman - Last Filed: 09/23/17 15:59> CCU Objective - Vital Signs / Intake & Output Intake and Output (Last 8hrs): Intake & Output 09/23/17 09/23/17 09/23/17 06:59 14:59 22:59 Intake Total 200 Output Total 800 Balance -600 Weight 251 lb Intake: Oral 200 Output: Urine 800 Urethral ([place]) 800 Other: # Bowel Movements 0 - Medications Active Medications: Active Medications Generic Name Dose Route Start Last Admin Trade Name Freq PRN Reason Stop Dose Admin Albuterol/Ipratropium 3 ml 09/22/17 11:32 Duoneb 3 Mg/0.5 Mg (3 Ml) Ud IH Q2H PRN Shortness of Breath Albuterol/Ipratropium 3 ml 09/23/17 08:00 09/23/17 13:21 Duoneb 3 Mg/0.5 Mg (3 Ml) Ud IH 3 ml [id number] CARMINA Administration Atorvastatin Calcium 20 mg 09/22/17 10:00 09/23/17 10:08 Lipitor PO 20 mg DAILY CARMINA Administration Azithromycin 500 mg 09/24/17 10:00 Zithromax PO DAILY CARMINA Clopidogrel Bisulfate 75 mg 09/24/17 10:00 Plavix PO DAILY CARMINA Digoxin 0.125 mg 09/22/17 10:00 09/23/17 10:08 Digoxin PO 0.125 mg DAILY CARMINA Administration Furosemide 40 mg 09/22/17 10:00 09/23/17 10:10 Lasix IVP 40 mg BID CARMINA Administration Ceftriaxone Sodium 1 gm in 100 mls @ 100 mls/hr 09/22/17 11:45 09/23/17 10:09 Rocephin 1 Gram Ivpb IVPB 100 mls/hr DAILY CARMINA Administration Protocol Insulin Human Regular 0 units 09/22/17 15:00 09/23/17 04:10 Humulin R Med SC Not Given Q4H [facility] Protocol Methylprednisolone 30 mg 09/23/17 11:24 09/23/17 13:31 Solu-Medrol IVP 30 mg Q8 CARMINA Administration Metoprolol Succinate 50 mg 09/22/17 10:00 09/23/17 10:08 Toprol Xl PO 50 mg DAILY CARMINA Administration Pantoprazole Sodium 40 mg 09/24/17 06:00 Protonix Ec Tab PO 0600 [facility] - Patient Studies Lab Studies: Microbiology Studies 09/22/17 13:15 Blood Culture - Preliminary Blood-Venous NO GROWTH AFTER 24 HOURS 09/22/17 13:15 Blood Culture - Preliminary Blood-Venous NO GROWTH AFTER 24 HOURS Lab Studies 09/23/17 09/23/17 09/23/17 Range/Units 11:55 07:50 07:50 WBC (4.5-11.0) 10^3/ul RBC (3.5-6.1) 10^6/uL Hgb (14.0-18.0) g/dL Hct (42.0-52.0) % MCV (80.0-105.0) fl MCH (25.0-35.0) pg MCHC (31.0-37.0) g/dl RDW (11.5-14.5) % Plt Count (120.0-450.0) 10^3/uL MPV (7.0-11.0) fl pCO2 56 H (35-45) mm/Hg pO2 72.0 L (80-100) mm/Hg HCO3 33.9 H (21-28) mmol/L ABG pH 7.39 (7.35-7.45) ABG Total CO2 35.6 H (22-28) mmol.L ABG O2 Saturation 97.0 (95-98) % ABG O2 Content 12.9 L (15-23) ML/dl ABG Base Excess 7.7 H (-2.0-3.0) mmol/L ABG Hemoglobin 9.7 L (11.7-17.4) g/dL ABG Carboxyhemoglobin 2.2 H (0.5-1.5) % POC ABG HHb (Measured) 2.9 (0-5) % ABG Methemoglobin 1.1 (0.0-3.0) % ABG O2 Capacity 13.3 L (16-24) mL/dl Hgb O2 Saturation 93.9 L (95.0-98.0) % FiO2 32.0 % Sodium (132-148) mmol/L Potassium (3.6-5.0) mmol/L Chloride (98-107) mmol/L Carbon Dioxide (21-33) mmol/L Anion Gap (10-20) BUN (7-21) mg/dL Creatinine (0.8-1.5) mg/dl Est GFR ( Amer) Est GFR (Non-Af Amer) POC Glucose (mg/dL) 147 H 160 H (65-110) mg/dL Random Glucose (70-110) mg/dL Calcium (8.4-10.5) mg/dL Total Bilirubin (0.2-1.3) mg/dL AST (17-59) U/L ALT (7-56) U/L Alkaline Phosphatase (38-126) U/L Total Protein (5.8-8.3) g/dL Albumin (3.0-4.8) g/dL Globulin gm/dL Albumin/Globulin Ratio (1.1-1.8) Procalcitonin (0.19-0.49) NG/ML Digoxin (0.8-2.0) ng/mL 09/23/17 09/23/17 09/23/17 Range/Units 06:17 05:50 05:50 WBC 7.5 D (4.5-11.0) 10^3/ul RBC 3.99 (3.5-6.1) 10^6/uL Hgb 9.7 L D (14.0-18.0) g/dL Hct 29.9 L (42.0-52.0) % MCV 74.9 L (80.0-105.0) fl MCH 24.3 L (25.0-35.0) pg MCHC 32.4 (31.0-37.0) g/dl RDW 18.6 H (11.5-14.5) % Plt Count 363 (120.0-450.0) 10^3/uL MPV 10.2 (7.0-11.0) fl pCO2 (35-45) mm/Hg pO2 (80-100) mm/Hg HCO3 (21-28) mmol/L ABG pH (7.35-7.45) ABG Total CO2 (22-28) mmol.L ABG O2 Saturation (95-98) % ABG O2 Content (15-23) ML/dl ABG Base Excess (-2.0-3.0) mmol/L ABG Hemoglobin (11.7-17.4) g/dL ABG Carboxyhemoglobin (0.5-1.5) % POC ABG HHb (Measured) (0-5) % ABG Methemoglobin (0.0-3.0) % ABG O2 Capacity (16-24) mL/dl Hgb O2 Saturation (95.0-98.0) % FiO2 % Sodium 147 (132-148) mmol/L Potassium 5.3 H (3.6-5.0) mmol/L Chloride 101 (98-107) mmol/L Carbon Dioxide 38 H (21-33) mmol/L Anion Gap 13 (10-20) BUN 25 H (7-21) mg/dL Creatinine 1.0 (0.8-1.5) mg/dl Est GFR ( Amer) > 60 Est GFR (Non-Af Amer) > 60 POC Glucose (mg/dL) 162 H (65-110) mg/dL Random Glucose 168 H (70-110) mg/dL Calcium 9.2 (8.4-10.5) mg/dL Total Bilirubin 0.3 (0.2-1.3) mg/dL AST 32 (17-59) U/L ALT 31 (7-56) U/L Alkaline Phosphatase 74 (38-126) U/L Total Protein 6.7 (5.8-8.3) g/dL Albumin 3.4 (3.0-4.8) g/dL Globulin 3.4 gm/dL Albumin/Globulin Ratio 1.0 L (1.1-1.8) Procalcitonin (0.19-0.49) NG/ML Digoxin (0.8-2.0) ng/mL 09/23/17 09/22/17 09/22/17 Range/Units 05:50 20:33 16:46 WBC (4.5-11.0) 10^3/ul RBC (3.5-6.1) 10^6/uL Hgb (14.0-18.0) g/dL Hct (42.0-52.0) % MCV (80.0-105.0) fl MCH (25.0-35.0) pg MCHC (31.0-37.0) g/dl RDW (11.5-14.5) % Plt Count (120.0-450.0) 10^3/uL MPV (7.0-11.0) fl pCO2 (35-45) mm/Hg pO2 (80-100) mm/Hg HCO3 (21-28) mmol/L ABG pH (7.35-7.45) ABG Total CO2 (22-28) mmol.L ABG O2 Saturation (95-98) % ABG O2 Content (15-23) ML/dl ABG Base Excess (-2.0-3.0) mmol/L ABG Hemoglobin (11.7-17.4) g/dL ABG Carboxyhemoglobin (0.5-1.5) % POC ABG HHb (Measured) (0-5) % ABG Methemoglobin (0.0-3.0) % ABG O2 Capacity (16-24) mL/dl Hgb O2 Saturation (95.0-98.0) % FiO2 % Sodium (132-148) mmol/L Potassium (3.6-5.0) mmol/L Chloride (98-107) mmol/L Carbon Dioxide (21-33) mmol/L Anion Gap (10-20) BUN (7-21) mg/dL Creatinine (0.8-1.5) mg/dl Est GFR ( Amer) Est GFR (Non-Af Amer) POC Glucose (mg/dL) 153 H 151 H (65-110) mg/dL Random Glucose (70-110) mg/dL Calcium (8.4-10.5) mg/dL Total Bilirubin (0.2-1.3) mg/dL AST (17-59) U/L ALT (7-56) U/L Alkaline Phosphatase (38-126) U/L Total Protein (5.8-8.3) g/dL Albumin (3.0-4.8) g/dL Globulin gm/dL Albumin/Globulin Ratio (1.1-1.8) Procalcitonin (0.19-0.49) NG/ML Digoxin 0.7 L (0.8-2.0) ng/mL 09/22/17 Range/Units 13:15 WBC (4.5-11.0) 10^3/ul RBC (3.5-6.1) 10^6/uL Hgb (14.0-18.0) g/dL Hct (42.0-52.0) % MCV (80.0-105.0) fl MCH (25.0-35.0) pg MCHC (31.0-37.0) g/dl RDW (11.5-14.5) % Plt Count (120.0-450.0) 10^3/uL MPV (7.0-11.0) fl pCO2 (35-45) mm/Hg pO2 (80-100) mm/Hg HCO3 (21-28) mmol/L ABG pH (7.35-7.45) ABG Total CO2 (22-28) mmol.L ABG O2 Saturation (95-98) % ABG O2 Content (15-23) ML/dl ABG Base Excess (-2.0-3.0) mmol/L ABG Hemoglobin (11.7-17.4) g/dL ABG Carboxyhemoglobin (0.5-1.5) % POC ABG HHb (Measured) (0-5) % ABG Methemoglobin (0.0-3.0) % ABG O2 Capacity (16-24) mL/dl Hgb O2 Saturation (95.0-98.0) % FiO2 % Sodium (132-148) mmol/L Potassium (3.6-5.0) mmol/L Chloride (98-107) mmol/L Carbon Dioxide (21-33) mmol/L Anion Gap (10-20) BUN (7-21) mg/dL Creatinine (0.8-1.5) mg/dl Est GFR ( Amer) Est GFR (Non-Af Amer) POC Glucose (mg/dL) (65-110) mg/dL Random Glucose (70-110) mg/dL Calcium (8.4-10.5) mg/dL Total Bilirubin (0.2-1.3) mg/dL AST (17-59) U/L ALT (7-56) U/L Alkaline Phosphatase (38-126) U/L Total Protein (5.8-8.3) g/dL Albumin (3.0-4.8) g/dL Globulin gm/dL Albumin/Globulin Ratio (1.1-1.8) Procalcitonin 0.06 L (0.19-0.49) NG/ML Digoxin (0.8-2.0) ng/mL Laboratory Results - last 24 hr 09/22/17 09/22/17 09/22/17 13:15 16:46 20:33 WBC RBC Hgb Hct MCV MCH MCHC RDW Plt Count MPV pCO2 pO2 HCO3 ABG pH ABG Total CO2 ABG O2 Saturation ABG O2 Content ABG Base Excess ABG Hemoglobin ABG Carboxyhemoglobin POC ABG HHb (Measured) ABG Methemoglobin ABG O2 Capacity Hgb O2 Saturation FiO2 Sodium Potassium Chloride Carbon Dioxide Anion Gap BUN Creatinine Est GFR ( Amer) Est GFR (Non-Af Amer) POC Glucose (mg/dL) 151 H 153 H Random Glucose Calcium Total Bilirubin AST ALT Alkaline Phosphatase Total Protein Albumin Globulin Albumin/Globulin Ratio Procalcitonin 0.06 L Digoxin 09/23/17 09/23/17 09/23/17 05:50 05:50 05:50 WBC 7.5 D RBC 3.99 Hgb 9.7 L D Hct 29.9 L MCV 74.9 L MCH 24.3 L MCHC 32.4 RDW 18.6 H Plt Count 363 MPV 10.2 pCO2 pO2 HCO3 ABG pH ABG Total CO2 ABG O2 Saturation ABG O2 Content ABG Base Excess ABG Hemoglobin ABG Carboxyhemoglobin POC ABG HHb (Measured) ABG Methemoglobin ABG O2 Capacity Hgb O2 Saturation FiO2 Sodium 147 Potassium 5.3 H Chloride 101 Carbon Dioxide 38 H Anion Gap 13 BUN 25 H Creatinine 1.0 Est GFR ( Amer) > 60 Est GFR (Non-Af Amer) > 60 POC Glucose (mg/dL) Random Glucose 168 H Calcium 9.2 Total Bilirubin 0.3 AST 32 ALT 31 Alkaline Phosphatase 74 Total Protein 6.7 Albumin 3.4 Globulin 3.4 Albumin/Globulin Ratio 1.0 L Procalcitonin Digoxin 0.7 L 09/23/17 09/23/17 09/23/17 06:17 07:50 07:50 WBC RBC Hgb Hct MCV MCH MCHC RDW Plt Count MPV pCO2 56 H pO2 72.0 L HCO3 33.9 H ABG pH 7.39 ABG Total CO2 35.6 H ABG O2 Saturation 97.0 ABG O2 Content 12.9 L ABG Base Excess 7.7 H ABG Hemoglobin 9.7 L ABG Carboxyhemoglobin 2.2 H POC ABG HHb (Measured) 2.9 ABG Methemoglobin 1.1 ABG O2 Capacity 13.3 L Hgb O2 Saturation 93.9 L FiO2 32.0 Sodium Potassium Chloride Carbon Dioxide Anion Gap BUN Creatinine Est GFR ( Amer) Est GFR (Non-Af Amer) POC Glucose (mg/dL) 162 H 160 H Random Glucose Calcium Total Bilirubin AST ALT Alkaline Phosphatase Total Protein Albumin Globulin Albumin/Globulin Ratio Procalcitonin Digoxin 09/23/17 11:55 WBC RBC Hgb Hct MCV MCH MCHC RDW Plt Count MPV pCO2 pO2 HCO3 ABG pH ABG Total CO2 ABG O2 Saturation ABG O2 Content ABG Base Excess ABG Hemoglobin ABG Carboxyhemoglobin POC ABG HHb (Measured) ABG Methemoglobin ABG O2 Capacity Hgb O2 Saturation FiO2 Sodium Potassium Chloride Carbon Dioxide Anion Gap BUN Creatinine Est GFR ( Amer) Est GFR (Non-Af Amer) POC Glucose (mg/dL) 147 H Random Glucose Calcium Total Bilirubin AST ALT Alkaline Phosphatase Total Protein Albumin Globulin Albumin/Globulin Ratio Procalcitonin Digoxin Critical Care Progress Note - Nutrition Nutrition: Nutrition Category Date Time Status Heart Healthy Diet [DIET] Diets 09/23/17 Breakfast Ordered NPO Diet [DIET] Diets 09/24/17 Breakfast Ordered Attending/Attestation - Attestation I have personally seen and examined this patient.: Yes I have fully participated in the care of the patient.: Yes I have reviewed all pertinent clinical information: Yes Notes (Text): 09/23/17 15:[address] Rothman's note
[2017-09-23 06:50] LABS: HEMOGLOBIN 9.7 g/dL (14.0-18.0); MEAN CELL VOLUME 74.9 fl (80.0-105.0); MEAN CORPUSCULAR HEMOGLOBIN 24.3 pg (25.0-35.0); MEAN CORPUSCULAR HGB CONC 32.4 g/dl (31.0-37.0); MEAN PLATELET VOLUME 10.2 fl (7.0-11.0); RBC 3.99 10^6/uL (3.5-6.1); RED CELL DISTRIBUTION WIDTH 18.6 % (11.5-14.5); WHITE BLOOD COUNT 7.5 10^3/ul (4.5-11.0)
[2017-09-23 07:22] LABS: ALBUMIN 3.4 g/dL (3.0-4.8); ALT/SGPT 31 U/L (7-56); AST/SGOT 32 U/L (17-59); BLOOD UREA NITROGEN 25 mg/dL (7-21); CALCIUM 9.2 mg/dL (8.4-10.5); GFR AFRICAN-AMERICAN > 60; GFR NON-AFRICAN AMERICAN > 60
[2017-09-23 07:57] LABS: ARTERIAL BLOOD GAS HCO3 33.9 mmol/L (21-28); ARTERIAL BLOOD GAS HEMOGLOBIN 9.7 g/dL (11.7-17.4); ARTERIAL BLOOD GAS O2 CAPACITY 13.3 mL/dl (16-24); ARTERIAL BLOOD GAS O2 CONTENT 12.9 ML/dl (15-23); ARTERIAL BLOOD GAS PCO2 56 mm/Hg (35-45); ARTERIAL BLOOD GAS PH 7.39 (7.35-7.45); ARTERIAL BLOOD GAS TCO2 35.6 mmol.L (22-28)
[2017-09-23] MEDS ORDERED: Sod Polystyrene Sulf 15 gm/60 ml Susp PO ONE (08:59)
[2017-09-23] MEDS: Digoxin 125 mcg (0.125 mg) Tab PO SCH (10:08)
[2017-09-23] MEDS: Metoprolol Succinate 50 mg XL Tab PO SCH (10:08)
[2017-09-23] MEDS: Azithromycin 500MG/NS 250ml 500 MG/250 ML BAG IVPB SCH (10:09)
[2017-09-23] MEDS: cefTRIAXone 1 gm 1 GM/100 ML BAG IVPB SCH (10:09)
--- NOTE | 2017-09-23 10:11 | RAD ---
HISTORY: pneumonia COMPARISON: 09/22/2017 FINDINGS: LUNGS: There is significant improvement in pulmonary edema. There is minimal residual vascular congestion PLEURA: No significant pleural effusion identified, no pneumothorax apparent. CARDIOVASCULAR: Mild cardiomegaly OSSEOUS STRUCTURES: No significant abnormalities. VISUALIZED UPPER ABDOMEN: Normal. OTHER FINDINGS: None. IMPRESSION: Improved pulmonary edema
--- NOTE | 2017-09-23 13:06 | PN ---
DATE: SUBJECTIVE: The patient is seen at bedside. He is comfortable. He talks full sentences. He is not in respiratory or otherwise distress anymore. His night was uneventful and he did not use BiPAP. Today morning, his ABG showed compensated respiratory acidosis 7.39/56/72 on 2 liters nasal cannula. PHYSICAL EXAMINATION VITAL SIGNS: Heart rate 72, blood pressure 109/51, respiratory rate 21, oxygen saturation 100% on 2 liters nasal cannula. ENT: Head and neck atraumatic. LUNGS: Clear to auscultation bilaterally. HEART: Regular rate and rhythm. S1, S2 normal. ABDOMEN: Soft, nontender, nondistended. MUSCULOSKELETAL: Trace bilateral pedal and ankle edema (improved since yesterday). SKIN: Moist. PSYCHIATRIC: The patient is alert and oriented x3. LABORATORY DATA: WBC 7.5, hemoglobin 9.7, platelet count 363,000. Sodium 147, potassium 5.3, chloride 101, carbon dioxide 38, BUN 25, creatinine 1.0, glucose 168, AST 32, ALT 31, bilirubin 0.3. Procalcitonin 0.06 MEDICATIONS: DuoNebs p.r.n. and every 6 hours on standing basis, Eliquis, Lipitor, digoxin, Lasix 40 mg IV b.i.d., Solu-Medrol 40 mg IV q. 8h., metoprolol 50 mg p.o. daily, Protonix, ceftriaxone, azithromycin. ABG, as above. ASSESSMENT AND PLAN: This is a 77-year-old gentleman who presented with hypercapnic and hypoxemic respiratory failure, most likely secondary to bronchospasm/chronic obstructive pulmonary disease exacerbation. Based on current arterial blood gas, the patient appeared to have chronic carbon dioxide retention and may benefit from BiPAP use at night. If remains hypoxemic on room air would benefit from 02 supplementation as well. Meanwhile, Iwill recommend steroid taper, triple inhaler therapy, pulmonary rehab as soon as possible, infection prophylaxis with vaccination. Continue with Eliquis for atrial fibrillation/stroke prevention. Continue with GI prophylaxis. If septic workup comes back unrevealing within next 24 to 48 hours, I would stop antibiotics as patient is afebrile, exhibitied low procalcitonin level and does not have leukocytosis. ccm time 40 min Mainor Rothman MD [facility]
--- NOTE | 2017-09-23 14:19 | PN ---
DATE: 09/23/2017 CARDIOLOGY FOLLOWUP SUBJECTIVE: The patient experiencing in the unit is notable. His breathing is much better today. PHYSICAL EXAMINATION: VITAL SIGNS: Blood pressure is 136/68, heart rates in the 80s. NECK: Negative JVD. LUNGS: Decreased breath sounds. HEART: Reveals S1, S2. EXTREMITIES: Without change. LABORATORY DATA: Glucose is 168, potassium is 5.3, hemoglobin is 9.7. Echocardiogram reveals severe pulmonary hypertension with moderate AI. IMPRESSION: 1. Questionable flash pulmonary edema. 2. Pedal edema. 3. Aortic insufficiency. 4. Paroxysmal atrial fibrillation. 5. Diabetes mellitus. 6. Hypertension. 7. Hypercholesterolemia. PLAN: Given these findings, given his high probability for coronary artery disease and his flash pulmonary edema, we will proceed to cardiac catheterization in the morning. I have discussed this with the patient in detail. We will add Plavix to his regimen today. Tony Vaughan MD
[2017-09-24] MEDS: Albuterol-Ipratrop 3 mg / 0.5 (3 ml) UD IH SCH ×4 (01:27→20:40)
[2017-09-24] MEDS: Insulin Reg-MEDIUM-Coverage SC SCH ×5 (02:54→21:53)
[2017-09-24] MEDS: MethylPREDNISolone 40 mg Vial IVP SCH ×3 (05:56→21:52)
[2017-09-24] MEDS: Pantoprazole 40 mg EC Tab PO SCH (06:11)
[2017-09-24] MEDS: Metoprolol Succinate 50 mg XL Tab PO SCH ×2 (07:24→10:30)
--- NOTE | 2017-09-24 07:30 | CP.CCUPN ---
<David John - Last Filed: 09/24/17 11:27> CCU Subjective - Physician Review Subjective (Free Text): David John ICU Note for Dr. Rothman Patient was seen and examined in ICU. He is out of bed and in chair, resting comfortably and currently receiving a breathing treatment. Per respiratory therapist, the patient's O2 Sats are adequate on 3L NC. The patient denies chest pain or shortness of breath currently and states that his episode a couple days ago was likely due to some discomfort and anxiety brought on by the echo and the [employer]. The patient is complaining of a dry cough and states that his leg swelling has not dramatically improved with the different water pills he's been on. He denies other complaints. CCU Objective - Vital Signs / Intake & Output Vital Signs (Last 4 hours): Vital Signs Temp Pulse Resp 09/24/17 04:18 98.4 F 09/24/17 04:14 61 17 09/24/17 04:13 63 26 H 09/24/17 04:12 61 23 09/24/17 04:11 60 22 09/24/17 04:10 71 21 09/24/17 04:09 66 26 H 09/24/17 04:08 56 L 17 09/24/17 04:07 67 24 09/24/17 04:06 58 L 18 09/24/17 04:05 58 L 21 09/24/17 04:04 65 24 09/24/17 04:03 59 L 20 09/24/17 04:02 64 21 09/24/17 04:01 70 22 09/24/17 04:00 66 18 09/24/17 03:59 75 22 09/24/17 03:58 69 22 09/24/17 03:57 66 23 09/24/17 03:56 56 L 15 09/24/17 03:55 60 09/24/17 03:54 65 26 H 09/24/17 03:53 59 L 18 09/24/17 03:52 66 17 09/24/17 03:51 90 30 H 09/24/17 03:50 59 L 21 09/24/17 03:49 60 19 09/24/17 03:48 66 25 H 09/24/17 03:47 54 L 12 09/24/17 03:46 61 21 09/24/17 03:45 69 19 09/24/17 03:44 62 25 H 09/24/17 03:43 71 20 09/24/17 03:42 64 16 09/24/17 03:41 61 21 09/24/17 03:40 77 52 H 09/24/17 03:39 62 22 09/24/17 03:38 56 L 19 09/24/17 03:37 69 24 09/24/17 03:36 65 25 H 09/24/17 03:35 79 61 H 09/24/17 03:34 64 36 H 09/24/17 03:33 57 L 18 09/24/17 03:32 57 L 20 09/24/17 03:31 70 23 09/24/17 03:30 63 12 09/24/17 03:29 57 L 15 09/24/17 03:28 62 20 09/24/17 03:27 67 19 09/24/17 03:26 58 L 17 09/24/17 03:25 56 L Intake and Output (Last 8hrs): Intake & Output 09/23/17 09/24/17 09/24/17 22:59 06:59 14:59 Intake Total 1050 Output Total 600 Balance 450 Intake: IV 350 Left Hand 350 Oral 700 Output: Urine 600 Urethral (Pineda) 600 Other: # Bowel Movements 0 - Physical Exam Head: Positive for: Atraumatic, Normocephalic Pupils: Positive for: PERRL Extroacular Muscles: Positive for: EOMI Conjunctiva: Positive for: Normal Ears: Positive for: Normal Mouth: Positive for: Moist Mucous Membranes Pharnyx: Positive for: Normal Respiratory/Chest: Positive for: Clear to Auscultation, Decreased Breath Sounds , Rales (bibasilar ). Negative for: Respiratory Distress, Accessory Muscle Use , Wheezes, Retracting, Rhonchi, Tachypneic, Tender to Palpation Cardiovascular: Positive for: Regular Rate and Rhythm, Murmurs, Normal S1, S2, Peripheal Pulses Present. Negative for: Tachycardic, Bradycardic, Rub, Muffled Abdomen: Positive for: Normal Bowel Sounds, Other (obese abdomen.). Negative for: Tenderness, Distention, Peritoneal Signs Genitourinary Male: Positive for: Other (pineda in place) Lower Extremity: Positive for: Edema (+1 pitting edema b/l). Negative for: CALF TENDERNESS Neurological: Positive for: GCS=15, CN II-XII Intact, Speech Normal, Other (no focal neurological deficits) Skin: Positive for: Warm, Dry, Normal Color Psychiatric: Positive for: Alert, Oriented x 3, Normal Insight, Normal Concentration - Medications Active Medications: Active Medications Generic Name Dose Route Start Last Admin Trade Name Freq PRN Reason Stop Dose Admin Albuterol/Ipratropium 3 ml 09/22/17 11:32 Duoneb 3 Mg/0.5 Mg (3 Ml) Ud IH Q2H PRN Shortness of Breath Albuterol/Ipratropium 3 ml 09/23/17 08:00 09/24/17 07:11 Duoneb 3 Mg/0.5 Mg (3 Ml) Ud IH 3 ml [id number] CARMINA Administration Aspirin 81 mg 09/24/17 10:00 Ecotrin PO DAILY CARMINA Atorvastatin Calcium 20 mg 09/22/17 10:00 09/23/17 10:08 Lipitor PO 20 mg DAILY CARMINA Administration Azithromycin 500 mg 09/24/17 10:00 Zithromax PO DAILY CARMINA Budesonide 0.5 mg 09/24/17 08:00 Pulmicort Respules IH [id number] CARMINA Clopidogrel Bisulfate 75 mg 09/24/17 10:00 Plavix PO DAILY CARMINA Digoxin 0.125 mg 09/22/17 10:00 09/23/17 10:08 Digoxin PO 0.125 mg DAILY CARMINA Administration Furosemide 40 mg 09/22/17 10:00 09/23/17 17:56 Lasix IVP 40 mg BID CARMINA Administration Ceftriaxone Sodium 1 gm in 100 mls @ 100 mls/hr 09/22/17 11:45 09/23/17 10:09 Rocephin 1 Gram Ivpb IVPB 100 mls/hr DAILY CARMINA Administration Protocol Insulin Human Regular 0 units 09/22/17 15:00 09/24/17 02:54 Humulin R Med SC Not Given Q4H [facility] Protocol Methylprednisolone 30 mg 09/23/17 11:24 09/24/17 05:56 Solu-Medrol IVP 30 mg Q8 CARMINA Administration Metoprolol Succinate 50 mg 09/22/17 10:00 09/23/17 10:08 Toprol Xl PO 50 mg DAILY CARMINA Administration Pantoprazole Sodium 40 mg 09/24/17 06:00 09/24/17 06:11 Protonix Ec Tab PO Not Given 0600 CARMINA - Patient Studies Lab Studies: Microbiology Studies 09/22/17 13:15 Blood Culture - Preliminary Blood-Venous NO GROWTH AFTER 24 HOURS 09/22/17 13:15 Blood Culture - Preliminary Blood-Venous NO GROWTH AFTER 24 HOURS Lab Studies 09/24/17 09/23/17 09/23/17 Range/Units 02:49 23:04 20:53 WBC (4.5-11.0) 10^3/ul RBC (3.5-6.1) 10^6/uL Hgb (14.0-18.0) g/dL Hct (42.0-52.0) % MCV (80.0-105.0) fl MCH (25.0-35.0) pg MCHC (31.0-37.0) g/dl RDW (11.5-14.5) % Plt Count (120.0-450.0) 10^3/uL MPV (7.0-11.0) fl pCO2 (35-45) mm/Hg pO2 (80-100) mm/Hg HCO3 (21-28) mmol/L ABG pH (7.35-7.45) ABG Total CO2 (22-28) mmol.L ABG O2 Saturation (95-98) % ABG O2 Content (15-23) ML/dl ABG Base Excess (-2.0-3.0) mmol/L ABG Hemoglobin (11.7-17.4) g/dL ABG Carboxyhemoglobin (0.5-1.5) % POC ABG HHb (Measured) (0-5) % ABG Methemoglobin (0.0-3.0) % ABG O2 Capacity (16-24) mL/dl Hgb O2 Saturation (95.0-98.0) % FiO2 % POC Glucose (mg/dL) 156 H 197 H 158 H (65-110) mg/dL Ur L.pneumophila Ag (NEGATIVE) 09/23/17 09/23/17 09/23/17 Range/Units 17:16 11:55 07:50 WBC (4.5-11.0) 10^3/ul RBC (3.5-6.1) 10^6/uL Hgb (14.0-18.0) g/dL Hct (42.0-52.0) % MCV (80.0-105.0) fl MCH (25.0-35.0) pg MCHC (31.0-37.0) g/dl RDW (11.5-14.5) % Plt Count (120.0-450.0) 10^3/uL MPV (7.0-11.0) fl pCO2 (35-45) mm/Hg pO2 (80-100) mm/Hg HCO3 (21-28) mmol/L ABG pH (7.35-7.45) ABG Total CO2 (22-28) mmol.L ABG O2 Saturation (95-98) % ABG O2 Content (15-23) ML/dl ABG Base Excess (-2.0-3.0) mmol/L ABG Hemoglobin (11.7-17.4) g/dL ABG Carboxyhemoglobin (0.5-1.5) % POC ABG HHb (Measured) (0-5) % ABG Methemoglobin (0.0-3.0) % ABG O2 Capacity (16-24) mL/dl Hgb O2 Saturation (95.0-98.0) % FiO2 % POC Glucose (mg/dL) 151 H 147 H 160 H (65-110) mg/dL Ur L.pneumophila Ag (NEGATIVE) 09/23/17 09/23/17 09/22/17 Range/Units 07:50 05:50 18:51 WBC 7.5 D (4.5-11.0) 10^3/ul RBC 3.99 (3.5-6.1) 10^6/uL Hgb 9.7 L D (14.0-18.0) g/dL Hct 29.9 L (42.0-52.0) % MCV 74.9 L (80.0-105.0) fl MCH 24.3 L (25.0-35.0) pg MCHC 32.4 (31.0-37.0) g/dl RDW 18.6 H (11.5-14.5) % Plt Count 363 (120.0-450.0) 10^3/uL MPV 10.2 (7.0-11.0) fl pCO2 56 H (35-45) mm/Hg pO2 72.0 L (80-100) mm/Hg HCO3 33.9 H (21-28) mmol/L ABG pH 7.39 (7.35-7.45) ABG Total CO2 35.6 H (22-28) mmol.L ABG O2 Saturation 97.0 (95-98) % ABG O2 Content 12.9 L (15-23) ML/dl ABG Base Excess 7.7 H (-2.0-3.0) mmol/L ABG Hemoglobin 9.7 L (11.7-17.4) g/dL ABG Carboxyhemoglobin 2.2 H (0.5-1.5) % POC ABG HHb (Measured) 2.9 (0-5) % ABG Methemoglobin 1.1 (0.0-3.0) % ABG O2 Capacity 13.3 L (16-24) mL/dl Hgb O2 Saturation 93.9 L (95.0-98.0) % FiO2 32.0 % POC Glucose (mg/dL) (65-110) mg/dL Ur L.pneumophila Ag Negative (NEGATIVE) Laboratory Results - last 24 hr 09/22/17 09/23/17 09/23/17 18:51 05:50 07:50 WBC 7.5 D RBC 3.99 Hgb 9.7 L D Hct 29.9 L MCV 74.9 L MCH 24.3 L MCHC 32.4 RDW 18.6 H Plt Count 363 MPV 10.2 pCO2 56 H pO2 72.0 L HCO3 33.9 H ABG pH 7.39 ABG Total CO2 35.6 H ABG O2 Saturation 97.0 ABG O2 Content 12.9 L ABG Base Excess 7.7 H ABG Hemoglobin 9.7 L ABG Carboxyhemoglobin 2.2 H POC ABG HHb (Measured) 2.9 ABG Methemoglobin 1.1 ABG O2 Capacity 13.3 L Hgb O2 Saturation 93.9 L FiO2 32.0 POC Glucose (mg/dL) Ur L.pneumophila Ag Negative 09/23/17 09/23/17 09/23/17 07:50 11:55 17:16 WBC RBC Hgb Hct MCV MCH MCHC RDW Plt Count MPV pCO2 pO2 HCO3 ABG pH ABG Total CO2 ABG O2 Saturation ABG O2 Content ABG Base Excess ABG Hemoglobin ABG Carboxyhemoglobin POC ABG HHb (Measured) ABG Methemoglobin ABG O2 Capacity Hgb O2 Saturation FiO2 POC Glucose (mg/dL) 160 H 147 H 151 H Ur L.pneumophila Ag 09/23/17 09/23/17 09/24/17 20:53 23:04 02:49 WBC RBC Hgb Hct MCV MCH MCHC RDW Plt Count MPV pCO2 pO2 HCO3 ABG pH ABG Total CO2 ABG O2 Saturation ABG O2 Content ABG Base Excess ABG Hemoglobin ABG Carboxyhemoglobin POC ABG HHb (Measured) ABG Methemoglobin ABG O2 Capacity Hgb O2 Saturation FiO2 POC Glucose (mg/dL) 158 H 197 H 156 H Ur L.pneumophila Ag Fingerstick Blood Sugar Results: 197 Review of Systems - Review of Systems All systems: reviewed and no additional remarkable complaints except (as per HPI ) Critical Care Progress Note - Extremities/Vascular Does the Patient have a Central Venous Catheter?: No Does the Patient need a Central Venous Catheter?: No Does the Patient have a Pineda Catheter?: Yes Does the Patient need a Pineda Catheter?: Yes - Prophylaxis GI Prophylaxis GI: PPI - Prophylaxis DVT Prophylaxis DVT: Ambulatory - Nutrition Nutrition: Nutrition Category Date Time Status NPO Diet [DIET] Diets 09/24/17 Breakfast Ordered Assessment/Plan - Assessment and Plan (Free Text) Assessment: 77y/o AAM with a PMH of DM2, Paroxysmal Afiib on eliquis, former tobacco smoker , HTN, and HLD who was admitted with shortness of breath, and during his echo had exacerbation of shortness of breath, tachypnea and hypoxia. Patient responded well to BiPAP, diuresis, bronchodilators and solumedrol, and there was no need for intubation. CXR showed diffuse alveolar infiltrates likely 2/2 pulmonary edema vs pneumonia and patient was started on empiric antibiotics. Patient received heart catheterization to rule out cardiac causes of flash pulmonary edema. Echo was done and showed EF 62%, LVH, severe pulmonary hypertension and AR. Patient currently in ICU for monitoring post-cath but is stable. Plan: Neuro: - mental status at baseline - monitor for any changes post-cath - maintain normothermia Cardio: - post cath this morning, no stents were placed - patient remains in NSR - currently on ASA, Plavix, Toprol, Lipitor, and Digoxin - will follow up Cardio recs regarding d/c Plavix and Digoxin, continuing Eliquis from home - DVT ppx SCDs and ASA/Plavix; patient is also ambulatory - Echo showed normal EF and LV wall motion, moderate AR and severe pulm hypertension - cont Lasix 40mg BID Pulm: - Spirometry and PFT's today to evaluate pulm function - patient is stable and O2 saturation are satisfactory on NC - on ABX currently for empiric therapy for pneumonia, will f/u today's labs and d/c if no signs of infection - cont pulmicorty and duonebs breathing treatments - solu-medrol 40mg q8; will taper down steroids - will repeat CXR today; last one showed improved pulmonary edema - BiPAP HS - pulmonary consulted, recs appreciated GI: - GI ppx: protonix - HHD once cleared by cardio for diet ID: - patient remains afebrile w/ no acute signs of infection - blood cultures negative x24 hrs - urine cultures negative - CXR showed improving pulm edema, and no clear infiltrates - procal was low so bacterial infection unlikely - on empiric antibiotic therapy w/ Rocephin and Zithromax to cover CAP vs COPD exacerbation; will d/c pending today's labs and repeat CXR Renal: - pineda in place - good renal function - hyperkalemia was noted in yesterday's labs, will follow today s/p kayexelate Endo: - holding PO diabetic medications to avoid risk of nephropathy - ISS - Accuchecks ACHS - HHD - maintain euglycemia Heme: - anemia noted but w/ no signs of overt bleeding; microcytic in nature, so could be 2/2 chronic disease (DM2) - will monitor H/H Diet: HHD GI ppx: PTX DVT ppx: SCDs and ambulatory once cleared post-cath Dispo: Patient is stable and respiratory status is good. Once cleared post- cardiac cath bundle, patient could be cleared for d/c from ICU Patient was seen, examined and discussed with attending, Dr. Stephan John PGY1 Pager # [phone] <Mainor Rothman - Last Filed: 09/24/17 15:59> CCU Objective - Vital Signs / Intake & Output Vital Signs (Last 4 hours): Vital Signs Pulse Resp BP Pulse Ox 09/24/17 15:30 84 21 98 09/24/17 15:20 83 28 H 98 09/24/17 15:10 86 99 09/24/17 15:01 85 18 135/40 L 97 09/24/17 15:00 83 23 97 09/24/17 14:53 84 14 09/24/17 14:50 83 29 H 97 09/24/17 14:40 83 49 H 98 09/24/17 14:30 90 22 92 L 09/24/17 14:20 89 32 H 99 09/24/17 14:10 79 25 H 98 09/24/17 14:00 87 135/67 95 09/24/17 13:50 80 98 09/24/17 13:40 76 19 98 09/24/17 13:30 82 28 H 98 09/24/17 13:20 83 36 H 99 09/24/17 13:10 79 16 99 09/24/17 13:00 84 27 H 99 09/24/17 12:50 68 17 99 09/24/17 12:40 79 13 98 09/24/17 12:36 86 09/24/17 12:30 79 20 99 09/24/17 12:20 79 18 99 09/24/17 12:10 78 19 99 09/24/17 12:00 77 30 H 132/56 L 98 09/24/17 11:50 77 14 99 - Medications Active Medications: Active Medications Generic Name Dose Route Start Last Admin Trade Name Freq PRN Reason Stop Dose Admin Albuterol/Ipratropium 3 ml 09/22/17 11:32 Duoneb 3 Mg/0.5 Mg (3 Ml) Ud IH Q2H PRN Shortness of Breath Albuterol/Ipratropium 3 ml 09/23/17 08:00 09/24/17 13:01 Duoneb 3 Mg/0.5 Mg (3 Ml) Ud IH Not Given [id number] CARMINA Aspirin 81 mg 09/24/17 10:00 09/24/17 10:28 Ecotrin PO Not Given DAILY CARMINA Atorvastatin Calcium 20 mg 09/22/17 10:00 09/24/17 10:28 Lipitor PO 20 mg DAILY CARMINA Administration Budesonide 0.5 mg 09/24/17 08:00 Pulmicort Respules IH [id number] [facility] Digoxin 0.125 mg 09/25/17 14:00 Digoxin PO 1400 [facility] Insulin Human Regular 0 units 09/22/17 15:00 09/24/17 15:01 Humulin R Med SC Not Given Q4H [facility] Protocol Methylprednisolone 30 mg 09/23/17 11:24 09/24/17 15:02 Solu-Medrol IVP 30 mg Q8 [facility] Administration Metoprolol Succinate 50 mg 09/22/17 10:00 09/24/17 10:30 Toprol Xl PO Not Given DAILY [facility] Pantoprazole Sodium 40 mg 09/24/17 06:00 09/24/17 06:11 Protonix Ec Tab PO Not Given 0600 [facility] - Patient Studies Lab Studies: Microbiology Studies 09/22/17 13:15 Blood Culture - Preliminary Blood-Venous NO GROWTH AFTER 48 HOURS 09/22/17 13:15 Blood Culture - Preliminary Blood-Venous NO GROWTH AFTER 48 HOURS 09/22/17 19:20 MRSA Culture (Admit) - Final Nose MRSA NOT DETECTED 09/22/17 18:51 Urine Culture - Final Urine,Pineda No Growth (<1,000 CFU/ML) Lab Studies 09/24/17 09/24/17 09/24/17 Range/Units 14:59 11:10 11:10 WBC 10.0 D (4.5-11.0) 10^3/ul RBC 4.01 (3.5-6.1) 10^6/uL Hgb 9.6 L (14.0-18.0) g/dL Hct 29.6 L (42.0-52.0) % MCV 73.8 L (80.0-105.0) fl MCH 23.9 L (25.0-35.0) pg MCHC 32.4 (31.0-37.0) g/dl RDW 18.4 H (11.5-14.5) % Plt Count 371 (120.0-450.0) 10^3/uL MPV 10.2 (7.0-11.0) fl Sodium 144 (132-148) mmol/L Potassium 5.5 H (3.6-5.0) mmol/L Chloride 100 (98-107) mmol/L Carbon Dioxide 33 (21-33) mmol/L Anion Gap 17 (10-20) BUN 43 H (7-21) mg/dL Creatinine 0.9 (0.8-1.5) mg/dl Est GFR ( Amer) > 60 Est GFR (Non-Af Amer) > 60 POC Glucose (mg/dL) 151 H (65-110) mg/dL Random Glucose 165 H (70-110) mg/dL Calcium 8.7 (8.4-10.5) mg/dL Total Bilirubin 0.4 (0.2-1.3) mg/dL AST 17 D (17-59) U/L ALT 32 (7-56) U/L Alkaline Phosphatase 61 (38-126) U/L Total Protein 7.0 (5.8-8.3) g/dL Albumin 3.5 (3.0-4.8) g/dL Globulin 3.5 gm/dL Albumin/Globulin Ratio 1.0 L (1.1-1.8) Ur L.pneumophila Ag (NEGATIVE) 09/24/17 09/24/17 09/24/17 Range/Units 10:45 07:27 02:49 WBC (4.5-11.0) 10^3/ul RBC (3.5-6.1) 10^6/uL Hgb (14.0-18.0) g/dL Hct (42.0-52.0) % MCV (80.0-105.0) fl MCH (25.0-35.0) pg MCHC (31.0-37.0) g/dl RDW (11.5-14.5) % Plt Count (120.0-450.0) 10^3/uL MPV (7.0-11.0) fl Sodium (132-148) mmol/L Potassium (3.6-5.0) mmol/L Chloride (98-107) mmol/L Carbon Dioxide (21-33) mmol/L Anion Gap (10-20) BUN (7-21) mg/dL Creatinine (0.8-1.5) mg/dl Est GFR ( Amer) Est GFR (Non-Af Amer) POC Glucose (mg/dL) 158 H 153 H 156 H (65-110) mg/dL Random Glucose (70-110) mg/dL Calcium (8.4-10.5) mg/dL Total Bilirubin (0.2-1.3) mg/dL AST (17-59) U/L ALT (7-56) U/L Alkaline Phosphatase (38-126) U/L Total Protein (5.8-8.3) g/dL Albumin (3.0-4.8) g/dL Globulin gm/dL Albumin/Globulin Ratio (1.1-1.8) Ur L.pneumophila Ag (NEGATIVE) 09/23/17 09/23/17 09/23/17 Range/Units 23:04 20:53 17:16 WBC (4.5-11.0) 10^3/ul RBC (3.5-6.1) 10^6/uL Hgb (14.0-18.0) g/dL Hct (42.0-52.0) % MCV (80.0-105.0) fl MCH (25.0-35.0) pg MCHC (31.0-37.0) g/dl RDW (11.5-14.5) % Plt Count (120.0-450.0) 10^3/uL MPV (7.0-11.0) fl Sodium (132-148) mmol/L Potassium (3.6-5.0) mmol/L Chloride (98-107) mmol/L Carbon Dioxide (21-33) mmol/L Anion Gap (10-20) BUN (7-21) mg/dL Creatinine (0.8-1.5) mg/dl Est GFR ( Amer) Est GFR (Non-Af Amer) POC Glucose (mg/dL) 197 H 158 H 151 H (65-110) mg/dL Random Glucose (70-110) mg/dL Calcium (8.4-10.5) mg/dL Total Bilirubin (0.2-1.3) mg/dL AST (17-59) U/L ALT (7-56) U/L Alkaline Phosphatase (38-126) U/L Total Protein (5.8-8.3) g/dL Albumin (3.0-4.8) g/dL Globulin gm/dL Albumin/Globulin Ratio (1.1-1.8) Ur L.pneumophila Ag (NEGATIVE) 09/22/17 Range/Units 18:51 WBC (4.5-11.0) 10^3/ul RBC (3.5-6.1) 10^6/uL Hgb (14.0-18.0) g/dL Hct (42.0-52.0) % MCV (80.0-105.0) fl MCH (25.0-35.0) pg MCHC (31.0-37.0) g/dl RDW (11.5-14.5) % Plt Count (120.0-450.0) 10^3/uL MPV (7.0-11.0) fl Sodium (132-148) mmol/L Potassium (3.6-5.0) mmol/L Chloride (98-107) mmol/L Carbon Dioxide (21-33) mmol/L Anion Gap (10-20) BUN (7-21) mg/dL Creatinine (0.8-1.5) mg/dl Est GFR ( Amer) Est GFR (Non-Af Amer) POC Glucose (mg/dL) (65-110) mg/dL Random Glucose (70-110) mg/dL Calcium (8.4-10.5) mg/dL Total Bilirubin (0.2-1.3) mg/dL AST (17-59) U/L ALT (7-56) U/L Alkaline Phosphatase (38-126) U/L Total Protein (5.8-8.3) g/dL Albumin (3.0-4.8) g/dL Globulin gm/dL Albumin/Globulin Ratio (1.1-1.8) Ur L.pneumophila Ag Negative (NEGATIVE) Laboratory Results - last 24 hr 09/22/17 09/23/17 09/23/17 18:51 17:16 20:53 WBC RBC Hgb Hct MCV MCH MCHC RDW Plt Count MPV Sodium Potassium Chloride Carbon Dioxide Anion Gap BUN Creatinine Est GFR ( Amer) Est GFR (Non-Af Amer) POC Glucose (mg/dL) 151 H 158 H Random Glucose Calcium Total Bilirubin AST ALT Alkaline Phosphatase Total Protein Albumin Globulin Albumin/Globulin Ratio Ur L.pneumophila Ag Negative 09/23/17 09/24/17 09/24/17 23:04 02:49 07:27 WBC RBC Hgb Hct MCV MCH MCHC RDW Plt Count MPV Sodium Potassium Chloride Carbon Dioxide Anion Gap BUN Creatinine Est GFR ( Amer) Est GFR (Non-Af Amer) POC Glucose (mg/dL) 197 H 156 H 153 H Random Glucose Calcium Total Bilirubin AST ALT Alkaline Phosphatase Total Protein Albumin Globulin Albumin/Globulin Ratio Ur L.pneumophila Ag 09/24/17 09/24/17 09/24/17 10:45 11:10 11:10 WBC 10.0 D RBC 4.01 Hgb 9.6 L Hct 29.6 L MCV 73.8 L MCH 23.9 L MCHC 32.4 RDW 18.4 H Plt Count 371 MPV 10.2 Sodium 144 Potassium 5.5 H Chloride 100 Carbon Dioxide 33 Anion Gap 17 BUN 43 H Creatinine 0.9 Est GFR ( Amer) > 60 Est GFR (Non-Af Amer) > 60 POC Glucose (mg/dL) 158 H Random Glucose 165 H Calcium 8.7 Total Bilirubin 0.4 AST 17 D ALT 32 Alkaline Phosphatase 61 Total Protein 7.0 Albumin 3.5 Globulin 3.5 Albumin/Globulin Ratio 1.0 L Ur L.pneumophila Ag 09/24/17 14:59 WBC RBC Hgb Hct MCV MCH MCHC RDW Plt Count MPV Sodium Potassium Chloride Carbon Dioxide Anion Gap BUN Creatinine Est GFR ( Amer) Est GFR (Non-Af Amer) POC Glucose (mg/dL) 151 H Random Glucose Calcium Total Bilirubin AST ALT Alkaline Phosphatase Total Protein Albumin Globulin Albumin/Globulin Ratio Ur L.pneumophila Ag Critical Care Progress Note - Nutrition Nutrition: Nutrition Category Date Time Status Heart Healthy Diet [DIET] Diets 09/24/17 Lunch Ordered Attending/Attestation - Attestation I have personally seen and examined this patient.: Yes I have fully participated in the care of the patient.: Yes I have reviewed all pertinent clinical information: Yes Notes (Text): 09/24/17 15:47 77 yo recovering from severe bronchospasm with hypercapnic respiratory failure, substantially improved after steroids, nebs, bronchdilators, lasix, and BPAP. Attempted bedside spirometry-->very poor effort, coughing and less then 6 sec maneuver-->will need thorough and formal PFT when stable and discharged and thorough pulmonary workup. Confirmed severe PH on RVC-->likely type III due to cor pulmonale. LVEDP 15, no clinically significant coronary artery disease (as per Dr. Vaughan). Ok to downgrade to tele. steroids taper, bronchodilators. Will stop abx: afebrile, no leukocytosis, very low procalcitonin, neg septic work- up. Cont eliquis. GI prophylaxis ccm time 40 min
--- NOTE | 2017-09-24 08:07 | PN ---
DATE: SUBJECTIVE: He had a rapid response yesterday and was put in Intensive Care Unit. He was quite short of breath. I discussed this at length with the mold sheet cleaner and we need to get a box office attendant on this case. He had improved pulmonary edema on the chest x-ray. He is definitely diuresing well. He has got a CHF exacerbation, AFib, diabetes and now COPD. He is on Solu-Medrol now for his bronchospasm. He is sitting up in bed, comfortable right now in the Intensive Care Unit, breathing much better than yesterday. OBJECTIVE: VITAL SIGNS: He has 98.4 temperature, 88 pulse, 136/68 blood pressure, 21 respiratory rate, 100% O2 sat on 3 liters. HEENT: Head is atraumatic, normocephalic. HEART: Regular rate. LUNGS: Clear to auscultation with decreased breath sounds. ABDOMEN: Soft, obese. EXTREMITIES: Have trace edema, but much better than when he came in. MEDICATIONS: He is on digoxin, DuoNebs, Eliquis, insulin, Lasix IV b.i.d., Lipitor, Protonix, Rocephin IV, Solu-Medrol 40 IV q.8h., Toprol, and Zithromax IV. LABORATORY DATA: He has a 7.5 white count, 9.7 hemoglobin, 29.9 hematocrit with 363 platelets. He has a 147 sodium, 5.3 potassium, BUN 25, creatinine 1, GFR is greater than 60, sugar is 160, calcium is 9.2, total bili is 0.3, AST is 32, ALT 31, alk phos 74, total protein 6.7. IMPRESSION AND PLAN: Overall, he is much better than the rapid response. He will be out of the Intensive Care Unit today. We will continue with his IV medications. We will get consult with Pulmonary and Cardio and we will get Physical Therapy now back and to walk him. Hopefully, he will continue to improve and he is here for congestive heart failure, chronic obstructive pulmonary disease, atrial fibrillation, and diabetes. We will decrease his Solu-Medrol and check his labs tomorrow. Poli Joshi DO
[2017-09-24] MEDS ORDERED: Lidocaine 2% Inj (20ml) ONE (08:52)
[2017-09-24] MEDS ORDERED: Phenylephrine 10 mg/ml Inj ONE (08:53)
[2017-09-24] MEDS ORDERED: HEPARIN SODIUM/NS 2,000 ML IV ONE (08:53)
[2017-09-24] MEDS ORDERED: Iohexol 350mgl/ml 50 ML ONE (08:53)
[2017-09-24] MEDS ORDERED: Iodixanol 320 MG/ML 200 ML BOTTLE IV ONE (08:53)
[2017-09-24] MEDS ORDERED: Midazolam 2 MG/2 ML VIAL ONE ×2 (09:13→09:22)
[2017-09-24] MEDS ORDERED: Iodixanol 320 MG/ML 100 ML BOTTLE IV ONE (09:25)
[2017-09-24] MEDS ORDERED: Sodium Chloride 0.9% 1,000 ML IV SCH (10:00)
[2017-09-24] MEDS: cefTRIAXone 1 gm 1 GM/100 ML BAG IVPB SCH (10:29)
[2017-09-24 11:28] LABS: HEMOGLOBIN 9.6 g/dL (14.0-18.0); MEAN CELL VOLUME 73.8 fl (80.0-105.0); MEAN CORPUSCULAR HEMOGLOBIN 23.9 pg (25.0-35.0); MEAN CORPUSCULAR HGB CONC 32.4 g/dl (31.0-37.0); MEAN PLATELET VOLUME 10.2 fl (7.0-11.0); RBC 4.01 10^6/uL (3.5-6.1); RED CELL DISTRIBUTION WIDTH 18.4 % (11.5-14.5)
[2017-09-24 11:37] LABS: ALBUMIN 3.5 g/dL (3.0-4.8); ALT/SGPT 32 U/L (7-56); AST/SGOT 17 U/L (17-59); BLOOD UREA NITROGEN 43 mg/dL (7-21); CALCIUM 8.7 mg/dL (8.4-10.5); GFR AFRICAN-AMERICAN > 60; GFR NON-AFRICAN AMERICAN > 60
--- NOTE | 2017-09-24 14:09 | PN ---
DATE: SUBJECTIVE: I saw him in the Intensive Care Unit as he to go to cardiac catheterization with Cardiology. He is comfortable at this time. MEDICATIONS: He is on digoxin, DuoNebs, Ecotrin, Lasix, Lipitor, Plavix, Protonix, Pulmicort, Rocephin, Solu-Medrol, Toprol and Zithromax. PHYSICAL EXAMINATION: VITAL SIGNS: He has a 98.4 temp, 69 pulse, 123/58 blood pressure, 21 respiratory. HEENT: His head is atraumatic, normocephalic. He is alert and talking. He feels claustrophobic. He is worried about the procedure. If they need to, I will give him some Xanax. HEART: Regular rate. LUNGS: Decreased breath sounds, but clear. ABDOMEN: Soft, obese, nontender. Positive bowel sounds. EXTREMITIES: With +1 edema, which is better than when he came in. LABORATORY DATA: He has a 7.5 white count, 9.7 hemoglobin, 29.9 hematocrit with 363 platelets. He has a 153 blood sugar, 147 sodium, potassium is 5.3, BUN 25, creatinine 1, GFR is greater than 60, calcium is 9.2, total bili is 0.3, AST is 32, ALT is 31, alk phos 74, total protein 6.7. ASSESSMENT AND PLAN: Overall, I think he is doing fairly well from when he came in. He is going for cardiac catheterization this morning. He had flash pulmonary edema, pedal edema, aortic insufficiency, paroxysmal atrial fibrillation, diabetes, hypertension, hypercholesterolemia. He is being taken to cardiac cath. We will continue with aggressive treatment and care. I will check his labs tomorrow. Poli Joshi DO [facility]
--- NOTE | 2017-09-24 14:52 | RAD ---
HISTORY: Post catheter evaluation. COMPARISON: Comparison chest 09/23/2017 FINDINGS: LUNGS: Diffuse bilateral infiltrates likely representing pulmonary edema/CHF. Small bilateral effusions left greater than right with what appears represent a small amount of suspected fluid in the right minor fissure. PLEURA: As above. No pneumothorax apparent. CARDIOVASCULAR: Heart remains enlarged. Aorta ectatic and uncoiled. OSSEOUS STRUCTURES: No significant abnormalities. VISUALIZED UPPER ABDOMEN: Normal. OTHER FINDINGS: None. IMPRESSION: Diffuse bilateral infiltrates likely representing pulmonary edema/CHF. Small bilateral left larger than right with a small amount of suspected fluid in the right minor fissure
[2017-09-24] MEDS ORDERED: Sod Polystyrene Sulf 15 gm/60 ml Susp PO ONE (14:59)
[2017-09-24] MEDS: Digoxin 125 mcg (0.125 mg) Tab PO SCH (15:01)
[2017-09-24] MEDS ORDERED: Digoxin 125 mcg (0.125 mg) Tab PO SCH (15:15)
[2017-09-24] MEDS: Budesonide 0.5 mg/2 ml Inhal Susp UD IH SCH (20:40)
--- NOTE | 2017-09-24 21:02 | CON ---
DATE: REASON FOR CONSULTATION: Chronic obstructive pulmonary disease. REFERRING PHYSICIAN: Poli Joshi DO HISTORY OF PRESENT ILLNESS: The patient is a 77-year-old male, with past medical history significant for diabetes mellitus, atrial fibrillation, congestive heart failure, chronic obstructive pulmonary disease, who presented to [facility] - originally on 09/21/2017 - with increasing shortness of breath at rest, dyspnea on exertion, and cough for the preceding 3 days. There is no history of significant sputum production. There is no history of chest pain, coughing up of blood, or chest pain - made worse with deep respirations. There is no history of temperatures, chills or infectious exposure. There is no history of night sweats, weight loss or appetite change prior to the above events. No history of leg or calf pains. However, the patient did present with bilateral leg swelling. No history of syncope or diaphoresis. No history of recent travel or trauma. REVIEW OF SYSTEMS: No history of nausea, vomiting or diarrhea. No acute urinary symptoms. No new neurologic or musculoskeletal complaints. Rest of the review of systems is negative. ALLERGIES: NO KNOWN ALLERGIES. SOCIAL HISTORY: Positive for tobacco. Negative for alcohol. FAMILY HISTORY: Positive for diabetes and hypertension. HOME MEDICATIONS: Include Eliquis, Lasix, Lipitor, Glucophage, Toprol, digoxin. PHYSICAL EXAMINATION GENERAL: The patient appears comfortable this morning. He is not short of breath at rest. VITAL SIGNS: Temperature is 98.4, pulse 61, respirations 17, blood pressure 128/62. Oxygen saturation on nasal cannula is 98%. HEENT: Normocephalic, atraumatic. No JVD. CARDIOVASCULAR: Systolic ejection murmur at the lower left sternal border. Positive S3 gallop. LUNGS: Minimal crackles at the bases. Mild bilateral rhonchi. No wheezing. EXTREMITIES: Positive for edema. No cyanosis, no clubbing. Calves are nontender to palpation. GI: Abdomen is soft, nontender and nondistended. Bowel sounds are positive. SKIN: No acute rash. NEUROLOGIC: Limited at the present time. PERTINENT LABORATORY DATA: Chest x-ray was last done yesterday and reviewed. There is significant improvement in the pulmonary edema. Arterial blood gas was also done yesterday morning. On nasal cannula, the pH is 7.39, pCO2 of 56, pO2 of 72. CBC: White count 7.5, hemoglobin 9.7, hematocrit 29.9, platelets of 363,000. Complete metabolic profile: Potassium 5.3, carbon dioxide 38, BUN 25, glucose 168. Rest of the metabolic profile is within normal limits. Procalcitonin done on 09/22/2017 - negative - 0.06. Initial B-type natriuretic peptide 1860. Initial arterial blood gas done on 100% oxygen: PH 7.25, pCO2 of 78, pO2 of 231. IMPRESSION: 1. Status post respiratory failure. 2. Acute pulmonary edema, congestive heart failure. 3. Chronic obstructive pulmonary disease - probably advanced. 4. Mild bronchospasm. 5. Anemia. PLAN: The patient presented to [facility] - originally on 09/21/2017 - with a 3-day history of worsening pulmonary symptoms. On initial chest x-ray, severe pulmonary edema was noted. In addition, an arterial blood gas revealed a severe respiratory acidosis. The patient was placed on BiPAP, and admitted to the ICU. I did discuss the case with the nursing staff at length. I have also reviewed the chart at length. The patient has done very well over the past few days. His last chest x-ray is noted above. On yesterday's film, there is significant improvement in the pulmonary edema. In addition, the arterial blood gases have also improved. On the last arterial blood gas, there is CO2 retention, but with normal pH - indicating a probable chronic abnormality. But again, the arterial blood gases have improved significantly. On physical exam, there is [id number] bronchospasm noted. I will continue the current nebulizer treatments and intravenous steroids for now. I will also add inhaled Pulmicort. I would continue with the treatment for congestive heart failure and possible coronary artery disease as per Cardiology. Input by Dr. Vaughan is noted. The patient is for cardiac catheterization in the near future. The patient also remains on antibiotic therapy. There are no temperatures noted. The leukocytosis has resolved. Clinical status of the patient is significantly improved - compared to the initial presentation. However, due to his age and multiplicity of medical problems, his overall status/prognosis does remain guarded. I will discuss the above with Dr. Joshi this morning. Thank you very much for this pulmonary consultation. Larry Yap MD [facility] # [id number] [facility]
--- NOTE | 2017-09-24 21:43 | CARDCATH ---
PROCEDURE DATE: 09/24/2017 HISTORY: The patient is a 77-year-old male who presents with dyspnea and was thought to be in acute CHF. Noninvasive testing revealed significant aortic insufficiency as well as pulmonary hypertension. Because of this, cardiac catheterization was recommended. PROCEDURE: Right and left heart catheterization with coronary arteriography, left ventriculogram, supra-aortic valvular injection were performed. There were no complications. The right femoral artery was cannulated with a 6-Singaporean sheath. The right femoral vein was cannulated with a 7-Singaporean sheath. There were no complications. I performed moderate sedation, which included the presence of an independent trained observer that assisted in monitoring the patient's level of consciousness and physiologic status. After administration of Versed and fentanyl, my intra service time was 15 minutes. The findings on catheterization including hemodynamic data, which revealed a mean right atrial pressure of 10 mmHg, RV pressure was 82/15 mmHg, pulmonary artery pressure was 78/30 mmHg with a mean of 15 mmHg. LVEDP was 14 mmHg. There was no gradient across the aortic valve. Angiographic studies include LV gram, which was performed in the VALDEZ projection. In the VALDEZ projection, wall motion was hyperdynamic with an ejection fraction of 70% to 75%. Supra-aortic valvular injection revealed moderate aortic insufficiency. His coronary anatomy revealed a codominant circulation. The RCA revealed intimal irregularities without critical lesions. The left main artery was unremarkable. The LAD revealed intimal irregularities with a 50% stenosis in the midportion of the LAD. The circumflex artery and obtuse marginal branches were free of significant disease. Angio-Seal was used to close the right femoral artery site. Mynx system was used to close the right femoral vein site. The patient tolerated the procedure well. In summary, the procedure revealed [id number] pulmonary hypertension. Normal LV function with an EF of 70% to 75%. Moderate aortic insufficiency. Single-vessel CAD with a 50% stenosis in the mid LAD. Given these findings, most of the patient's symptoms are related to his pulmonary hypertension. His aortic insufficiency with good LV function will be treated with afterload reduction. We will need to refer the patient to a residential framing carpenter for evaluation of his pulmonary hypertension. Tony Vaughan MD
[2017-09-25] MEDS: Albuterol-Ipratrop 3 mg / 0.5 (3 ml) UD IH SCH ×4 (02:58→20:39)
--- NOTE | 2017-09-25 04:45 | CP.PCM.PN ---
Subjective - Date & Time of Evaluation Date of Evaluation: 09/25/17 Time of Evaluation: 04:24 - Subjective Subjective: Nurse calls and tells that monitor was showing NSR and rate under 100 until now , it has changed to atrial fibrillation and rate hits 140's. Wafl132/min. BP116/53 T 98.6*F Pulse ox 94% 2L/min. Patient is asymptomatic. Patient was seen at bedside. He is sitting on a commode now. Has no complaints. Denies chest pain, sob, nausea, sweating , palpitations. States that he was found to have irregular heart rate for about a month ago and has been having palpitations on and off. No palpitations now. He is S/P cardiac cath. Medical record was reviewed. K was 5.5 day before yesterday. D-dimer was elevated. 77 year old male was admitted with shortness of breath and leg swelling. Has PMH of CHF, atrial fibrillation, HTN, DM II, obesity. Objective - Vital Signs/Intake and Output Vital Signs (last 24 hours): Temp Pulse Resp BP Pulse Ox 98.6 F 77 19 120/49 L 95 09/25/17 00:36 09/25/17 02:00 09/25/17 00:36 09/25/17 00:36 09/25/17 00:36 Intake and Output: 09/24/17 09/25/17 18:59 06:59 Intake Total 1250 Output Total 550 Balance 700 - Medications Medications: Current Medications Albuterol/Ipratropium (Duoneb 3 Mg/0.5 Mg (3 Ml) Ud) 3 ml IH Q2H PRN PRN Reason: Shortness of Breath Albuterol/Ipratropium (Duoneb 3 Mg/0.5 Mg (3 Ml) Ud) 3 ml IH [id number] [facility] Last Admin: 09/25/17 02:58 Dose: Not Given Aspirin (Ecotrin) 81 mg PO DAILY [facility] Last Admin: 09/24/17 10:28 Dose: Not Given Atorvastatin Calcium (Lipitor) 20 mg PO DAILY [facility] Last Admin: 09/24/17 10:28 Dose: 20 mg Budesonide (Pulmicort Respules) 0.5 mg IH [id number] [facility] Last Admin: 09/24/17 20:40 Dose: 0.5 mg Digoxin (Digoxin) 0.125 mg PO 1400 [facility] Insulin Human Regular (Humulin R Med) 0 units SC ACHS [facility] PRN Reason: Protocol Last Admin: 09/24/17 21:53 Dose: Not Given Methylprednisolone (Solu-Medrol) 30 mg IVP Q8 [facility] Last Admin: 09/24/17 21:52 Dose: 30 mg Metoprolol Succinate (Toprol Xl) 50 mg PO DAILY [facility] Last Admin: 09/24/17 10:30 Dose: Not Given Pantoprazole Sodium (Protonix Ec Tab) 40 mg PO 0600 [facility] Last Admin: 09/24/17 06:11 Dose: Not Given - Labs Labs: 09/24/17 11:10 09/24/17 11:10 PT 17.2 SECONDS (9.4-12.5) H 09/21/17 21:00 INR 1.50 (0.93-1.08) H 09/21/17 21:00 APTT 33.3 Seconds (25.1-36.5) 09/21/17 21:00 Micro Results 09/22/17 13:15 Blood-Venous Blood Culture - Preliminary NO GROWTH AFTER 48 HOURS 09/22/17 13:15 Blood-Venous Blood Culture - Preliminary NO GROWTH AFTER 48 HOURS 09/22/17 19:20 Nose MRSA Culture (Admit) - Final MRSA NOT DETECTED 09/22/17 18:51 Urine,[place] Urine Culture - Final No Growth (<1,000 CFU/ML) Most Recent Lab Values WBC 10.0 10^3/ul (4.5-11.0) D 09/24/17 11:10 RBC 4.01 10^6/uL (3.5-6.1) 09/24/17 11:10 Hgb 9.6 g/dL (14.0-18.0) L 09/24/17 11:10 Hct 29.6 % (42.0-52.0) L 09/24/17 11:10 MCV 73.8 fl (80.0-105.0) L 09/24/17 11:10 MCH 23.9 pg (25.0-35.0) L 09/24/17 11:10 MCHC 32.4 g/dl (31.0-37.0) 09/24/17 11:10 RDW 18.4 % (11.5-14.5) H 09/24/17 11:10 Plt Count 371 10^3/uL (120.0-450.0) 09/24/17 11:10 MPV 10.2 fl (7.0-11.0) 09/24/17 11:10 Gran % 53.2 % (50.0-68.0) 09/22/17 11:30 Lymph % (Auto) 40.0 % (22.0-35.0) H 09/22/17 11:30 Catron % (Auto) 5.0 % (1.0-6.0) 09/22/17 11:30 Eos % (Auto) 1.6 % (1.5-5.0) 09/22/17 11:30 Baso % (Auto) 0.2 % (0.0-3.0) 09/22/17 11:30 Gran # 6.54 (1.4-6.5) H 09/22/17 11:30 Lymph # (Auto) 4.9 (1.2-3.4) H 09/22/17 11:30 Catron # (Auto) 0.6 (0.1-0.6) 09/22/17 11:30 Eos # (Auto) 0.2 (0.0-0.7) 09/22/17 11:30 Baso # (Auto) 0.03 K/mm3 (0.0-2.0) 09/22/17 11:30 PT 17.2 SECONDS (9.4-12.5) H 09/21/17 21:00 INR 1.50 (0.93-1.08) H 09/21/17 21:00 APTT 33.3 Seconds (25.1-36.5) 09/21/17 21:00 D-Dimer, Quantitative 2480 ng/mL (0-243) H 09/22/17 11:30 pCO2 56 mm/Hg (35-45) H 09/23/17 07:50 pO2 72.0 mm/Hg (80-100) L 09/23/17 07:50 HCO3 33.9 mmol/L (21-28) H 09/23/17 07:50 ABG pH 7.39 (7.35-7.45) 09/23/17 07:50 ABG Total CO2 35.6 mmol.L (22-28) H 09/23/17 07:50 ABG O2 Saturation 97.0 % (95-98) 09/23/17 07:50 ABG O2 Content 12.9 ML/dl (15-23) L 09/23/17 07:50 ABG Base Excess 7.7 mmol/L (-2.0-3.0) H 09/23/17 07:50 ABG Hemoglobin 9.7 g/dL (11.7-17.4) L 09/23/17 07:50 ABG Carboxyhemoglobin 2.2 % (0.5-1.5) H 09/23/17 07:50 POC ABG HHb (Measured) 2.9 % (0-5) 09/23/17 07:50 ABG Methemoglobin 1.1 % (0.0-3.0) 09/23/17 07:50 ABG O2 Capacity 13.3 mL/dl (16-24) L 09/23/17 07:50 ABG Potassium 3.8 mmol/L (3.6-5.2) 09/22/17 12:40 Hgb O2 Saturation 93.9 % (95.0-98.0) L 09/23/17 07:50 Sodium 143.0 mmol/L (132-148) 09/22/17 12:40 Chloride 108.0 mmol/L (98-107) H 09/22/17 12:40 Glucose 195 mg/dl (75-110) H 09/22/17 12:40 Lactate 1.2 mmol/L (0.7-2.1) 09/22/17 12:40 FiO2 32.0 % 09/23/17 07:50 Sodium 144 mmol/L (132-148) 09/24/17 11:10 Potassium 5.5 mmol/L (3.6-5.0) H 09/24/17 11:10 Chloride 100 mmol/L (98-107) 09/24/17 11:10 Carbon Dioxide 33 mmol/L (21-33) 09/24/17 11:10 Anion Gap 17 (10-20) 09/24/17 11:10 BUN 43 mg/dL (7-21) H 09/24/17 11:10 Creatinine 0.9 mg/dl (0.8-1.5) 09/24/17 11:10 Est GFR ( Amer) > 60 09/24/17 11:10 Est GFR (Non-Af Amer) > 60 09/24/17 11:10 POC Glucose (mg/dL) 163 mg/dL (65-110) H 09/24/17 21:16 Random Glucose 165 mg/dL (70-110) H 09/24/17 11:10 Calcium 8.7 mg/dL (8.4-10.5) 09/24/17 11:10 Phosphorus 5.7 mg/dL (2.5-4.5) H 09/22/17 11:30 Magnesium 2.3 mg/dL (1.7-2.2) H 09/22/17 11:30 Total Bilirubin 0.4 mg/dL (0.2-1.3) 09/24/17 11:10 AST 17 U/L (17-59) D 09/24/17 11:10 ALT 32 U/L (7-56) 09/24/17 11:10 Alkaline Phosphatase 61 U/L (38-126) 09/24/17 11:10 Lactate Dehydrogenase 672 U/L (333-699) 09/21/17 21:00 Total Creatine Kinase 69 U/L (35-230) 09/21/17 21:00 Troponin I 0.02 ng/mL D 09/22/17 11:30 NT-Pro-B Natriuret Pep 1860 pg/mL (0-450) H 09/21/17 21:00 Total Protein 7.0 g/dL (5.8-8.3) 09/24/17 11:10 Albumin 3.5 g/dL (3.0-4.8) 09/24/17 11:10 Globulin 3.5 gm/dL 09/24/17 11:10 Albumin/Globulin Ratio 1.0 (1.1-1.8) L 09/24/17 11:10 Procalcitonin 0.06 NG/ML (0.19-0.49) L 09/22/17 13:15 Arterial Blood Potassium 3.8 mmol/L (3.6-5.2) 09/22/17 12:40 Digoxin 0.7 ng/mL (0.8-2.0) L 09/23/17 05:50 Ur L.pneumophila Ag Negative (NEGATIVE) 09/22/17 18:51 - Constitutional Appears: Well, No Acute Distress - Head Exam Head Exam: ATRAUMATIC, NORMAL INSPECTION, NORMOCEPHALIC - Eye Exam Eye Exam: Normal appearance - ENT Exam ENT Exam: Normal External Ear Exam - Neck Exam Neck Exam: Normal Inspection - Respiratory Exam Respiratory Exam: NORMAL BREATHING PATTERN - Cardiovascular Exam Cardiovascular Exam: absent: JVD - GI/Abdominal Exam GI & Abdominal Exam: absent: Distended - Rectal Exam Rectal Exam: Deferred - Exam Additional comments: Deferred. - Extremities Exam Extremities Exam: Normal Inspection - Back Exam Back Exam: NORMAL INSPECTION - Neurological Exam Neurological Exam: Alert, Oriented x3 - Psychiatric Exam Psychiatric exam: Normal Affect, Normal Mood - Skin Skin Exam: Normal Color Assessment and Plan - Assessment and Plan (Free Text) Assessment: Atrial fibrillation -rate 100-110/min. S/P cardiac cath with finding of 50 % stenosis of mid LAD. HTN. DM II. Obesity. Anemia. Elevated D-dimer. Hyperkalemia. R/O electrolyte imbalance. Plan: Observation. F/U this AM lytes. Add Mg, Phos. in AM labs. Continue present management .
[2017-09-25] MEDS: MethylPREDNISolone 40 mg Vial IVP SCH ×3 (05:18→22:16)
[2017-09-25] MEDS: Pantoprazole 40 mg EC Tab PO SCH (05:18)
[2017-09-25 07:26] LABS: MEAN CELL VOLUME 73.5 fl (80.0-105.0); MEAN CORPUSCULAR HEMOGLOBIN 24.3 pg (25.0-35.0); MEAN PLATELET VOLUME 10.3 fl (7.0-11.0); RBC 4.12 10^6/uL (3.5-6.1); RED CELL DISTRIBUTION WIDTH 18.5 % (11.5-14.5); WHITE BLOOD COUNT 8.6 10^3/ul (4.5-11.0)
[2017-09-25] MEDS: Insulin Reg-MEDIUM-Coverage SC SCH ×4 (07:53→22:16)
[2017-09-25] MEDS: Budesonide 0.5 mg/2 ml Inhal Susp UD IH SCH ×2 (08:04→20:39)
[2017-09-25 08:18] LABS: ALBUMIN 3.4 g/dL (3.0-4.8); ALT/SGPT 32 U/L (7-56); AST/SGOT 21 U/L (17-59); BLOOD UREA NITROGEN 33 mg/dL (7-21); CALCIUM 9.3 mg/dL (8.4-10.5); GFR AFRICAN-AMERICAN > 60; GFR NON-AFRICAN AMERICAN > 60; MAGNESIUM 2.5 mg/dL (1.7-2.2)
[2017-09-25] MEDS: Metoprolol Succinate 50 mg XL Tab PO SCH (09:27)
--- NOTE | 2017-09-25 10:50 | PN ---
DATE: 09/25/2017 CARDIOLOGY FOLLOWUP SUBJECTIVE: The patient still complains of dyspnea. He is status post cardiac catheterization, which revealed hyperdynamic left ventricle with an EF of 70%. There is no significant coronary artery disease. He has moderate to severe pulmonary hypertension. Telemetry strip reveals an episode of narrow complex tachycardia which is consistent with atrial fibrillation. PHYSICAL EXAMINATION GENERAL: The patient is sitting in a chair without distress. VITAL SIGNS: Blood pressure is 113/57, heart rate goes up to 138. NECK: Negative JVD. LUNGS: Decreased breath sounds. HEART: Reveals S1 and S2. EXTREMITIES: Edema noted. LABORATORY DATA: Hemoglobin is 10.0. BUN is 33, creatinine is 1.0. IMPRESSION: 1. Moderate to severe pulmonary hypertension. 2. Normal left ventricular function. 3. No significant coronary artery disease. 4. Paroxysmal atrial fibrillation. 5. Diabetes mellitus. 6. Obesity. 7. Pedal edema due to his pulmonary hypertension. PLAN: Given these findings, the patient is on digoxin for better heart rate control as well as beta blockers. We will restart his Lasix today. We will discuss with Pulmonary about starting the patient on high-dose sildenafil for his pulmonary hypertension. Tony Vaughan MD
--- NOTE | 2017-09-25 14:49 | PN ---
DATE: 09/25/2017 PULMONARY PROGRESS NOTE SUBJECTIVE: Mr. Sutton is a 77-year-old gentleman who was admitted for respiratory insufficiency. The patient has a long-standing history of diabetes mellitus and atrial fibrillation. He has had congestive heart failure on numerous occasions and several hospitalized in the past with diuresis. The patient also has some COPD, the extent of which is unknown at this time. He has been in the hospital for a short period of time and he is feeling better. He states that he is getting stronger. PHYSICAL EXAMINATION GENERAL: He is resting comfortably. VITAL SIGNS: Stable. He is afebrile. Pulse is 60, respiratory rate is 16 to 18, blood pressure is 130/70, and O2 saturation 98% on supplemental oxygen. HEENT: Normocephalic and atraumatic. NECK: No JVD. No bruit. CARDIOVASCULAR: Regular rhythm. S1, S2. Soft systolic ejection murmur. LUNGS: Scattered rales throughout both lung myles, one-third up. ABDOMEN: Soft. Bowel sounds normoactive without mass, guarding, rebound or organomegaly. EXTREMITIES: Reveal no clubbing, cyanosis or edema. There is no Homans sign. SKIN: No rash or excoriation. NEUROLOGIC: No focal findings. DATA: Chest x-ray today was reviewed, they showed significant pulmonary vascular congestion. CLINICAL IMPRESSION 1. Respiratory insufficiency. 2. Pulmonary vascular congestion/congestive heart failure. 3. Chronic obstructive pulmonary disease. PLAN: The patient will require further diuresis and evaluation by Cardiology. Once the patient is dry and he is at the best possible state, he will require further Pulmonary evaluation. He will require a new arterial blood gas to rule out baseline hypoxemia and CO2 retention. He will require a complete pulmonary function study to look for bronchospasm and air trapping. Further evaluation will be done by Dr. Yap who will see the patient again on Wednesday. Will further review cardiac catherization data to see what Pressures are found. PAH? WHO group needs to be determined. Thank you for the opportunity to evaluate this annmarie gentleman. Jamari Lemus MD [facility]
[2017-09-25] MEDS: Digoxin 125 mcg (0.125 mg) Tab PO SCH (15:25)
--- NOTE | 2017-09-25 16:33 | PN ---
DATE: SUBJECTIVE: I saw him sitting out-of-bed to chair. He is comfortable. He had a rapid response with atrial fibrillation. He is doing better now. His legs are still swollen. He is status post cardiac cath and did well. MEDICATIONS: He is on digoxin; DuoNeb; aspirin; Eliquis; Kayexalate; Lasix; Lipitor; Protonix; Pulmicort; Solu-Medrol, down to 30 IV q.8 hours; Toprol, I will decrease him down to 20 IV q.8 hours. OBJECTIVE: VITAL SIGNS: He has a 98.6 temperature, 96 pulse, 113/57 blood pressure, 18 respiratory rate, 95% O2 sat nasal cannula. HEENT: Head is atraumatic and normocephalic. HEART: Regular rate. LUNGS: Decreased breath sounds, but clear. ABDOMEN: Soft. Morbidly obese. EXTREMITIES: +2/4 pitting edema. I need physical therapy to see him. I will order that again to see if he gets TCU or subacute rehab. He is on Lasix now, which is good, by Dr. Vaughan, for the edema. Order labs tomorrow. LABORATORY DATA: He has an 8.6 white count, 10 hemoglobin, 30.3 hematocrit with 376 platelets. Sodium 147, potassium 4.6, BUN 33, creatinine 1. GFR is greater than 60. Sugar is 170, calcium is 9.3, total bilirubin is 0.4, magnesium is 2.5, AST is 21, ALT is 32, alkaline phosphatase 68, total protein is 6.8. He is comfortable sitting out-of-bed to chair. He did go into AFib today. He is comfortable now. His chest x-ray yesterday after the cardiac cath showed diffuse bilateral infiltrates likely representing pulmonary edema, CHF, small bilateral left larger than right small amount of suspected fluid in the right minor fissure, . I will call in Pulmonary for further opinion. He is here for pulmonary hypertension, AFib, diabetes, obesity, congestion and possible pneumonia with infiltrates. Poli Joshi DO
[2017-09-26] MEDS: Albuterol-Ipratrop 3 mg / 0.5 (3 ml) UD IH SCH ×4 (01:41→19:39)
[2017-09-26 02:33] LABS: SOURCE SERUM
[2017-09-26] MEDS: Pantoprazole 40 mg EC Tab PO SCH (05:54)
[2017-09-26 06:30] LABS: ALBUMIN 3.2 g/dL (3.0-4.8); ALT/SGPT 36 U/L (7-56); AST/SGOT 24 U/L (17-59); BLOOD UREA NITROGEN 34 mg/dL (7-21); CALCIUM 8.5 mg/dL (8.4-10.5); GFR AFRICAN-AMERICAN > 60; GFR NON-AFRICAN AMERICAN > 60; MEAN CELL VOLUME 73.2 fl (80.0-105.0); MEAN CORPUSCULAR HEMOGLOBIN 24.4 pg (25.0-35.0); MEAN CORPUSCULAR HGB CONC 33.3 g/dl (31.0-37.0); MEAN PLATELET VOLUME 10.1 fl (7.0-11.0); RBC 4.1 10^6/uL (3.5-6.1); RED CELL DISTRIBUTION WIDTH 17.9 % (11.5-14.5); WHITE BLOOD COUNT 7.6 10^3/ul (4.5-11.0)
[2017-09-26] MEDS: Budesonide 0.5 mg/2 ml Inhal Susp UD IH SCH ×2 (07:46→19:40)
[2017-09-26] MEDS: Insulin Reg-MEDIUM-Coverage SC SCH ×4 (07:52→22:22)
[2017-09-26] MEDS: MethylPREDNISolone 40 mg Vial IVP SCH (08:11)
[2017-09-26] MEDS: Metoprolol Succinate 50 mg XL Tab PO SCH (09:49)
[2017-09-26] MEDS ORDERED: Metoprolol Succinate 50 mg XL Tab PO SCH (10:21)
--- NOTE | 2017-09-26 11:02 | PN ---
DATE: 09/26/2017 CARDIOLOGY FOLLOWUP SUBJECTIVE: The patient remains dyspneic with minimal exertion. PHYSICAL EXAMINATION VITAL SIGNS: Blood pressure is 119/50, heart rate is in the 90s, atrial fibrillation. NECK: Negative JVD. LUNGS: Without rales. HEART: Reveals S1, S2. EXTREMITIES: Decreasing edema. DATA: Glucose is 181, hemoglobin is 10. IMPRESSION 1. Severe pulmonary hypertension. 2. Anemia. 3. Atrial fibrillation. 4. Diabetes mellitus. Given these findings, as per Pulmonary's note suggesting a cardiac catheterization and not having data on pulmonary hypertension, the patient already had a cardiac catheterization and his pulmonary pressures are reported on the catheterization report, which is in the medical records. Tony Vaughan MD
[2017-09-26] MEDS: Digoxin 125 mcg (0.125 mg) Tab PO SCH (13:24)
--- NOTE | 2017-09-26 13:40 | PN ---
DATE: SUBJECTIVE: I saw Mr. Sutton this morning standing up in the bathroom. His legs are much more swollen today than yesterday, +3/4, a little short of breath. He cannot move his legs as well. He is currently on digoxin, albuterol, Ecotrin, Eliquis, insulin coverage, Lasix, Lipitor and he was on IV Solu-Medrol, I am changing IV Solu-Medrol to 30 mg prednisone, Protonix, Pulmicort, metoprolol. I think his legs are very swollen, worse than yesterday. Increase the Lasix to twice a day. I understand it is all pulmonary hypertension and did well with the cardiac cath, but clinically it is more swollen today so I am going to try and diurese him if we can. I discussed with Pulmonary about using pulmonary hypertensive medicines and at this time, we are going to keep him on a regimen he is on right now. He is eating well. He has some shortness of breath and will use the oxygen. OBJECTIVE VITAL SIGNS: He has a 98.2 temperature, 89 pulse, 109/51 blood pressure, 19 respiratory rate, 97% O2 saturation on 3 liters just this morning. HEENT: His head is atraumatic, normocephalic. Throat is moist. NECK: Supple. HEART: Regular rate. LUNGS: Decreased breath sounds bilaterally, poor inspiration. ABDOMEN: Obese, nontender. Positive bowel sounds. EXTREMITIES: Has +3/4 pitting edema standing; I think it got half way up his leg to his knee, yesterday it was in the ankles, +2, so things have gotten worse in 24 hours. DATA: He has a white count of 7.6, hemoglobin 10, hematocrit 30, platelets of 342,000. Sodium 144, potassium 3.9, BUN 34, creatinine 0.9. GFR is greater than 60. Sugar is 122, calcium is 8.5, total bilirubin is 0.4. AST is 24, ALT 36, alkaline phosphatase 52, total protein 6.2. I am also going to order another BNP tomorrow. We will keep a very close eye on him. Discuss with Pulmonary and is here for pulmonary retention, atrial fibrillation, diabetes, obesity, congestive heart failure, and infiltrate. Poli Joshi DO [facility] # [id number]
--- NOTE | 2017-09-26 13:41 | PN ---
DATE: 09/26/2017 PULMONARY PROGRESS NOTE SUBJECTIVE: The patient is feeling better today, sitting in chair, joking, feeling well. Congestive heart failure is improved. I have reviewed the preliminary data on a cardiac catheterization, which was done 2 days ago. The PA pressures are 78/30. The remainder of the values are not available at this time. The patient does indeed have pulmonary hypertension. We will need to look for other abnormalities to see if there are other underlying conditions to determine the WHO Group classification. PHYSICAL EXAMINATION GENERAL: The patient is comfortable, in no acute respiratory distress, resting comfortably. VITAL SIGNS: Stable. Pulse 60, respiratory rate 18, blood pressure 130/70, O2 sat 98% on supplemental oxygen. HEENT: Normocephalic. NECK: Supple. No JVD. No bruit. CARDIOVASCULAR: Regular rhythm. S1, S2. Soft systolic ejection murmur. LUNGS: Scattered rales throughout both lung myles. No wheezing appreciated. ABDOMEN: Soft. EXTREMITIES: Reveal no clubbing, cyanosis, or edema. SKIN: Dry; intact. No rashes We will review cardiac catheterization data and chest x-ray. CLINICAL IMPRESSION: Pulmonary arterial hypertension; respiratory insufficiency, status post pulmonary vascular congestion/congestive heart failure; chronic obstructive pulmonary disease. PLAN: Continue diuresis therapy. Await for evaluation of data to make sure that there is no concomitant etiology for the pulmonary hypertension. This can be done as an outpatient. The patient will require a 6-minute walk test as well as pulmonary function studies, V/Q scan to rule out chronic pulmonary embolization and CTEPH. We will discuss with Dr. Yap who will see the patient in the morning. We will follow closely and decide on the need for further intervention based on clinical findings. Jamari Lemus MD [facility]
[2017-09-27] MEDS: Albuterol-Ipratrop 3 mg / 0.5 (3 ml) UD IH SCH ×4 (01:20→19:51)
[2017-09-27 05:58] LABS: HEMOGLOBIN 9.8 g/dL (14.0-18.0); MEAN CELL VOLUME 73.6 fl (80.0-105.0); MEAN CORPUSCULAR HEMOGLOBIN 24.4 pg (25.0-35.0); MEAN CORPUSCULAR HGB CONC 33.2 g/dl (31.0-37.0); MEAN PLATELET VOLUME 10.1 fl (7.0-11.0); RBC 4.01 10^6/uL (3.5-6.1); RED CELL DISTRIBUTION WIDTH 18.1 % (11.5-14.5); WHITE BLOOD COUNT 8.1 10^3/ul (4.5-11.0)
[2017-09-27] MEDS: Pantoprazole 40 mg EC Tab PO SCH (06:00)
[2017-09-27 06:30] VITALS: RESP 20; O2SAT 94
[2017-09-27] MEDS: Budesonide 0.5 mg/2 ml Inhal Susp UD IH SCH ×2 (07:42→19:52)
[2017-09-27 07:48] LABS: ALBUMIN 2.9 g/dL (3.0-4.8); ALT/SGPT 35 U/L (7-56); AST/SGOT 12 U/L (17-59); BLOOD UREA NITROGEN 30 mg/dL (7-21); CALCIUM 8.4 mg/dL (8.4-10.5); GFR AFRICAN-AMERICAN > 60; GFR NON-AFRICAN AMERICAN > 60
[2017-09-27 07:52] LABS: B-TYPE NATRIURETIC PEPTIDE 5640 pg/mL (0-450)
[2017-09-27] MEDS: Insulin Reg-MEDIUM-Coverage SC SCH ×3 (07:52→17:31)
--- NOTE | 2017-09-27 08:32 | PN ---
DATE: 09/27/2017 PULMONARY NOTE SUBJECTIVE: The patient appears very comfortable this morning. He is not short of breath at rest. PHYSICAL EXAMINATION VITAL SIGNS: Temperature 97.1, pulse on the monitor is 84, respirations 18, blood pressure 123/38. Oxygen saturation on nasal cannula is 98%. HEENT: Normocephalic, atraumatic. No JVD. CARDIOVASCULAR: Systolic ejection murmur at the lower left sternal border. Positive S3 gallop. LUNGS: Minimal crackles at the bases. Minimal bilateral rhonchi. No wheezing. EXTREMITIES: Less edema. No cyanosis, no clubbing. Calves are nontender to palpation. GI: Abdomen is soft, nontender and nondistended. Bowel sounds are positive. SKIN: No acute rash. NEUROLOGIC: Limited at the present time. IMPRESSION: 1. Status post respiratory failure. 2. Acute pulmonary edema, congestive heart failure. 3. Chronic obstructive pulmonary disease - probably advanced. 4. Mild bronchospasm. 5. Anemia. PLAN: The patient appears very comfortable this morning. He is not short of breath at rest. He does state to feeling much better overall. On physical exam, his bronchospasm is less. In addition, the alveolar-arterial gradient is also less. I will continue the current nebulizer treatments and oral steroids (changed yesterday) for now. I would continue with the treatment for congestive heart failure as per Cardiology. Input by Dr. Vaughan is noted. The patient remains on oral Lasix. Clinical status of the patient is significantly improved overall. I will discuss the above with Dr. Joshi. Larry Yap MD [facility]
--- NOTE | 2017-09-27 11:25 | PN ---
DATE: 09/27/2017 CARDIOLOGY FOLLOWUP SUBJECTIVE: The patient is not short of breath at rest, but complains of shortness of breath with exertion. PHYSICAL EXAMINATION VITAL SIGNS: Blood pressure is 110/52, the heart rates in the 90s. NECK: Negative JVD. LUNGS: Without rales. HEART: Reveals S2 and S2. EXTREMITIES: Decreasing edema. IMPRESSION: 1. Severe pulmonary hypertension. 2. Advanced chronic obstructive pulmonary disease. 3. Atrial fibrillation. 4. Diabetes mellitus. 5. Anemia. PLAN: Given these findings, the patient would benefit from a stay in the TCU. We will continue his Eliquis. We will discuss with Pulmonary about the possible need for pulmonary hypertension medications. Tony Vaughan MD
[2017-09-27] MEDS: Digoxin 125 mcg (0.125 mg) Tab PO SCH (13:44)
[2017-09-27 13:46] VITALS: PULSE 63
--- NOTE | 2017-09-27 17:06 | NM ---
COMPARISON: 09/24/2017. TECHNIQUE: 35.0 mCi technetium 99-m DTPA aerosol. 3.2 mCI technetium 99-m MAA administered intravenously. FINDINGS: VENTILATION COMPONENT: Heterogeneous ventilation consistent with findings on recent chest x-ray. Retention of radionuclide in the tracheobronchial tree and ingestion of radionuclide in the stomach, incidental findings PERFUSION COMPONENT: Heterogeneous distribution of radionuclide. No geographic, segmental, lobar abnormalities apparent on the present examination. IMPRESSION: Low probability ventilation perfusion scan for pulmonary embolism.
[2017-09-27 17:43] VITALS: BP 180/88; PULSE 87; TEMP 99.3
[2017-09-27] MEDS ORDERED: Sildenafil 20 MG TAB PO SCH (18:00)
--- NOTE | 2017-09-28 07:55 | DS ---
HISTORY OF PRESENT ILLNESS: I saw him in his room, he stood up. He also he can go to TCU, but he cannot because of his insurance. He wants to go home. I think he can do some subacute rehab before he goes home. We will see if he refuses that or not. MEDICATIONS: He is on digoxin, DuoNeb, Ecotrin, Eliquis, Lasix, Lipitor, prednisone, Protonix, Pulmicort, metoprolol. PHYSICAL EXAMINATION: VITAL SIGNS: Temp 98.1, 64 pulse, 109/42 blood pressure, 20 respiratory rate, 94% O2 sat on nasal cannula. HEENT: His head is atraumatic, normocephalic. HEART: Regular rate. LUNGS: Decreased breath sounds, but clear. ABDOMEN: Soft, morbidly obese, nontender. EXTREMITIES: +1 to 2 pitting edema a little better on the Lasix. LABORATORY DATA: He has an 8.1 white count, 9.8 hemoglobin, 29.5 hematocrit with a 305 platelets. He has a 142 sodium, potassium 3.9, BUN 30, creatinine 0.8, GFR is greater than 60, sugar is 125, calcium is 8.4, total bili is 0.4, AST is 12, ALT is 35, alk phos 52. BNP is 5640. ASSESSMENT AND PLAN: He needs to stay on Lasix p.o. He is being seen by Pulmonary and Cardiology. He is off IV steroids now. I would like to discharge him hopefully to subacute rehab as opposed to with services. His insurance the TCU. Hopefully, he will let us get him to subacute rehab. Continue aggressive treatment and care, and he is here for severe pulmonary hypertension, atrial fibrillation, diabetes, obesity, congestive heart failure, infiltrate. Poli Joshi DO [facility]
== END 2017-09-27 21:04 | disposition home or self-care (01) | DRG 286 ==
LOC: ED 20:52 → ERH 22:56 → 2RNO 09-22 01:52 → CCU 09-22 11:09 → 2RNO 09-24 16:45
PROVIDERS: ADMIT Family Medicine; ATTEND Family Medicine
PROC: 5A09357 Assistance with Respiratory Ventilation, Less than 24 Consecutive Hours, Continuous Positive Airway Pressure (ICD-10-PCS; 2017-09-22)
PROC: 3E0F7GC Introduction of Other Therapeutic Substance into Respiratory Tract, Via Natural or Artificial Opening (ICD-10-PCS; 2017-09-22)
PROC: 4A023N8 Measurement of Cardiac Sampling and Pressure, Bilateral, Percutaneous Approach (ICD-10-PCS; principal; 2017-09-24)
PROC: B211YZZ Fluoroscopy of Multiple Coronary Arteries using Other Contrast (ICD-10-PCS; 2017-09-24)
PROC: B215YZZ Fluoroscopy of Left Heart using Other Contrast (ICD-10-PCS; 2017-09-24)
PROC: B310YZZ Fluoroscopy of Thoracic Aorta using Other Contrast (ICD-10-PCS; 2017-09-24)
DX: I11.0 Hypertensive heart disease with heart failure (principal); J96.91 Respiratory failure, unspecified with hypoxia; J96.92 Respiratory failure, unspecified with hypercapnia; E87.2 Acidosis; E87.5 Hyperkalemia; E11.9 Type 2 diabetes mellitus without complications; D64.9 Anemia, unspecified; J44.1 Chronic obstructive pulmonary disease with (acute) exacerbation; I27.21 Secondary pulmonary arterial hypertension; I48.0 Paroxysmal atrial fibrillation; E78.00 Pure hypercholesterolemia, unspecified; I50.21 Acute systolic (congestive) heart failure; I35.1 Nonrheumatic aortic (valve) insufficiency; J98.01 Acute bronchospasm; I25.10 Atherosclerotic heart disease of native coronary artery without angina pectoris; E66.9 Obesity, unspecified; Z68.39 Body mass index [BMI] 39.0-39.9, adult; F41.9 Anxiety disorder, unspecified; Z87.891 Personal history of nicotine dependence

== ENCOUNTER 2017-10-07 20:51 | Inpatient (IN) | payer OTHER ==
[2017-10-07] MEDS ORDERED: Albuterol-Ipratrop 3 mg / 0.5 (3 ml) UD IH STA (21:20)
--- NOTE | 2017-10-07 21:26 | ED PDOC ---
Arrival/HPI - General Time Seen by Provider: 10/07/17 20:53 Historian: Patient - History of Present Illness Narrative History of Present Illness (Text): 10/07/17 21:21 A 77 year old male, whose past medical history includes CHF, aortic insufficiency, hypertension, diabetes mellitus and paroxysmal atrial fibrillation, presents to the emergency department complaining of several day duration shortness of breath. The patient states that he has mainly been experiencing exertional dyspnea, noting that he is fine when at rest. The patient does complain of occasional, vague, chest symptoms. Patient was recently discharged from the hospital after being treated for CHF. The patient denies fevers, chills, headache, dizziness, chest pain, cough, abdominal pain, nausea, vomiting, diarrhea, back pain, neck pain, urinary/bowel changes, or any other complaint. PMD: Dr. Terrell Victoria Time/Duration: Other (Several Days) Symptom Onset: Sudden Symptom Course: Unchanged Activities at Onset: Rest, Light Context: Home Past Medical History - Provider Review Nursing Documentation Reviewed: Yes - Cardiac Hx Cardiac Disorders: Yes (parox AFib) Hx Congestive Heart Failure: Yes Hx Hypertension: Yes - Pulmonary Hx Respiratory Disorders: No Hx Pneumonia: Yes - Neurological Hx Neurological Disorder: No - HEENT Hx HEENT Disorder: No - Renal Hx Renal Disorder: No - Endocrine/Metabolic Hx Diabetes Mellitus Type 2: Yes - Hematological/Oncological Hx Blood Transfusions: No Hx Blood Transfusion Reaction: No - Integumentary Hx Dermatological Disorder: No - Musculoskeletal/Rheumatological Hx Musculoskeletal Disorders: Yes Hx Arthritis: Yes Hx Falls: No - Gastrointestinal Hx Gastrointestinal Disorders: No - Genitourinary/Gynecological Hx Genitourinary Disorders: No - Psychiatric Hx Psychophysiologic Disorder: No Hx Substance Use: No - Surgical History Hx Inguinal Hernia Repair: Yes Hx Orthopedic Surgery: Yes (R knee sx) - Anesthesia Hx Anesthesia Reactions: No Hx Malignant Hyperthermia: No Family/Social History - Physician Review Nursing Documentation Reviewed: Yes Family/Social History: No Known Family HX Smoking Status: Former Smoker Hx Alcohol Use: Yes (social) Hx Substance Use: No Allergies/Home Meds Allergies/Adverse Reactions: Allergies No Known Allergies Allergy (Verified 10/07/17 21:23) Home Medications: Home Meds Medication Instructions Recorded Confirmed Apixaban [Eliquis] 5 mg PO BID 09/21/17 10/07/17 Atorvastatin [Lipitor] 20 mg PO DAILY 09/21/17 10/07/17 Digoxin [Digitek] 125 mcg PO DAILY 09/21/17 10/07/17 Furosemide [Lasix] 20 mg PO DAILY 09/21/17 10/07/17 Metformin HCl [Glucophage] 500 mg PO BID 09/21/17 10/07/17 Metoprolol Succinate [Toprol Xl] 50 mg PO DAILY 09/21/17 10/07/17 Review of Systems - Physician Review All systems were reviewed & negative as marked: Yes - Review of Systems Constitutional: absent: Fevers, Night Sweats Respiratory: SOB. absent: Cough Cardiovascular: DYSON. absent: Chest Pain Gastrointestinal: absent: Abdominal Pain, Stool Changes, Diarrhea, Nausea, Vomiting Genitourinary Male: absent: Urinary Output Changes Musculoskeletal: absent: Back Pain, Neck Pain Neurological: absent: Headache, Dizziness Physical Exam Vital Signs Reviewed: Yes Vital Signs Temp Pulse Resp BP Pulse Ox 10/07/17 22:44 143/56 L 10/07/17 21:13 99.4 F 86 22 138/70 99 Temperature: Afebrile Blood Pressure: Normal Pulse: Regular Respiratory Rate: Normal Appearance: Positive for: Well-Appearing, Non-Toxic, Comfortable Pain Distress: None Mental Status: Positive for: Alert and Oriented X 3 - Systems Exam Head: Present: Atraumatic, Normocephalic Pupils: Present: PERRL Extroacular Muscles: Present: EOMI Conjunctiva: Present: Normal Mouth: Present: Moist Mucous Membranes Neck: Present: Normal Range of Motion Respiratory/Chest: Present: Decreased Breath Sounds (Decreased breath sounds bilaterally. ) Cardiovascular: Present: Regular Rate and Rhythm, Normal S1, S2. No: Murmurs Abdomen: Present: Normal Bowel Sounds. No: Tenderness, Distention, Peritoneal Signs Back: Present: Normal Inspection Upper Extremity: Present: Normal Inspection. No: Cyanosis, Edema Lower Extremity: Present: Edema (+1 bilateral pitting edema) Neurological: Present: GCS=15, CN II-XII Intact, Speech Normal Skin: Present: Warm, Dry, Normal Color. No: Rashes Psychiatric: Present: Alert, Oriented x 3, Normal Insight, Normal Concentration Medical Decision Making ED Course and Treatment: 10/07/17 21:30 Impression: A 77 year old male presents to the emergency department complaining of several day duration shortness of breath, occasional, vague chest symptoms and exertional dyspnea. Plan: -- EKG -- Chest X-ray -- Labs -- Duoneb and SOLU- Medrol -- Reassess and disposition Prior Visits: Notes and results from previous visits were reviewed. Patient was last seen in the emergency department on 09/21/17. The patient was seen in the emergency department for a complaint of shortness of breath. The patient was hospitalized. Progress Notes: EK10/07/17 22:30 Ordered, reviewed, and independently interpreted the EKG. Rate : 82 BPM Rhythm : NSR Interpretation : Septal infarct. Non- specific ST-T changes. 10/07/17 23:01: Case discussed in detail with Dr. Joshi. Accepts patient for admission to Tele/Obs. Requests Dr. Yap and Dr. Vaughan on consult. 10/07/17 23:08: Chest X-ray read and interpreted by me shows increased pulmonary vascular markings. - Lab Interpretations Lab Results: 10/07/17 21:55 10/07/17 21:55 Lab Results 10/07/17 21:55: WBC 7.2, RBC 3.99, Hgb 9.8 L, Hct 29.6 L, MCV 74.2 L, MCH 24.6 L , MCHC 33.1, RDW 19.1 H, Plt Count 137, MPV 10.0 10/07/17 21:55: Sodium 146, Potassium 3.7, Chloride 105, Carbon Dioxide 36 H, Anion Gap 10, BUN 13, Creatinine 0.7 L, Est GFR ( Amer) > 60, Est GFR ( Non-Af Amer) > 60, Random Glucose 132 H, Calcium 9.0, Total Bilirubin 0.8, AST 18, ALT 20, Alkaline Phosphatase 68, Lactate Dehydrogenase 474, Total Creatine Kinase 33 L, Troponin I < 0.01 D, NT-Pro-B Natriuret Pep 2230 H, Total Protein 6.2, Albumin 3.2, Globulin 3.0, Albumin/Globulin Ratio 1.1 10/07/17 21:55: PT 15.6 H, INR 1.36 H, APTT 31.6 I have reviewed the lab results: Yes - RAD Interpretation Radiology Orders: 10/07/17 21:17 CHEST PORTABLE [RAD] Stat - EKG Interpretation Interpreted by ED Physician: Yes Type: 12 lead EKG - Medication Orders Current Medication Orders: Discontinued Medications Albuterol/Ipratropium (Duoneb 3 Mg/0.5 Mg (3 Ml) Ud) 3 ml IH ONCE STA Stop: 10/07/17 21:21 Last Admin: 10/07/17 21:31 Dose: 3 ml Furosemide (Lasix) 40 mg IVP ONCE ONE Stop: 10/07/17 22:15 Last Admin: 10/07/17 22:44 Dose: 40 mg MAR Blood Pressure Document 10/07/17 22:44 CNR (Rec: 10/07/17 22:44 CNR [id number]) Blood Pressure Blood Pressure (100/60-150/90 mm Hg) 143/56 IVP Administration Document 10/07/17 22:44 CNR (Rec: 10/07/17 22:44 CNR [id number]) Charges for Administration # of IVP Administrations 1 Methylprednisolone (Solu-Medrol) 125 mg IVP ONCE ONE Stop: 10/07/17 21:25 Last Admin: 10/07/17 22:00 Dose: 125 mg IVP Administration Document 10/07/17 22:00 CNR (Rec: 10/07/17 22:01 CNR [id number]) Charges for Administration # of IVP Administrations 1 - Scribe Statement The provider has reviewed the documentation as recorded by the [place] Provider Scribe Attestation: All medical record entries made by the Scribe were at my direction and personally dictated by me. I have reviewed the chart and agree that the record accurately reflects my personal performance of the history, physical exam, medical decision making, and the department course for this patient. I have also personally directed, reviewed, and agree with the discharge instructions and disposition. Disposition/Present on Arrival - Present on Arrival Any Indicators Present on Arrival: No History of DVT/PE: No History of Uncontrolled Diabetes: No Urinary Catheter: No History Surgical Site Infection Following: None - Disposition Have Diagnosis and Disposition been Completed?: Yes Diagnosis: CHF (congestive heart failure), COPD (chronic obstructive pulmonary disease) Disposition: HOSPITALIZED Disposition Time: 23:10 Patient Plan: Observation Condition: STABLE Discharge Instructions (ExitCare): Heart Failure (ED)
[2017-10-07 22:20] LABS: HEMOGLOBIN 9.8 g/dL (14.0-18.0); MEAN CELL VOLUME 74.2 fl (80.0-105.0); MEAN CORPUSCULAR HEMOGLOBIN 24.6 pg (25.0-35.0); MEAN CORPUSCULAR HGB CONC 33.1 g/dl (31.0-37.0); RBC 3.99 10^6/uL (3.5-6.1); RED CELL DISTRIBUTION WIDTH 19.1 % (11.5-14.5); WHITE BLOOD COUNT 7.2 10^3/ul (4.5-11.0)
[2017-10-07 22:31] LABS: B-TYPE NATRIURETIC PEPTIDE 2230 pg/mL (0-450); TROPONIN I < 0.01 ng/mL
[2017-10-07 22:35] LABS: ALB/GLOB RATIO 1.1 (1.1-1.8); ALBUMIN 3.2 g/dL (3.0-4.8); ALT/SGPT 20 U/L (7-56); AST/SGOT 18 U/L (17-59); BLOOD UREA NITROGEN 13 mg/dL (7-21); GFR AFRICAN-AMERICAN > 60; GFR NON-AFRICAN AMERICAN > 60
[2017-10-07 22:45] LABS: INR 1.36 (0.93-1.08); PARTIAL THROMBOPLASTIN TIME 31.6 Seconds (25.1-36.5); PROTHROMBIN TIME 15.6 SECONDS (9.4-12.5)
[2017-10-08 06:39] VITALS: BMI 36.9
[2017-10-08] MEDS ORDERED: Albuterol-Ipratrop 3 mg / 0.5 (3 ml) UD IH PRN (06:48)
--- NOTE | 2017-10-08 09:10 | CON ---
DATE: 10/08/2017 PULMONARY CONSULTATION REASON FOR CONSULTATION: Pulmonary disease. REFERRING PHYSICIAN: Poli Joshi DO HISTORY OF PRESENT ILLNESS: The patient is a chronically ill 77-year-old male, with past medical history significant for congestive heart failure (status post recent hospitalization), chronic obstructive pulmonary disease, hypertension, diabetes mellitus, atrial fibrillation, who presents to [facility] with a 3-day history of worsening shortness of breath at rest, dyspnea on exertion, and cough. The patient denies sputum production. The patient also denies chest pain, coughing up of blood, or chest pain - made worse with deep respirations. There is no history of temperatures, chills or infectious exposure. There is no history of night sweats, weight loss or appetite change prior to the above events. No history of calf pains. No history of syncope or diaphoresis. No history of recent travel or trauma. REVIEW OF SYSTEMS: No history of nausea, vomiting or diarrhea. No acute urinary symptoms. No new neurologic or musculoskeletal complaints. Rest of the review of systems is negative. ALLERGIES: NO KNOWN ALLERGIES. SOCIAL HISTORY: Positive for tobacco and negative for alcohol. FAMILY HISTORY: No inheritable diseases. HOME MEDICATIONS: Include Lasix, Digitek, Lipitor, Eliquis, Toprol, metformin. PHYSICAL EXAMINATION GENERAL: The patient appears comfortable this morning. He is not short of breath at rest. VITAL SIGNS: Temperature is 98.6, pulse on the monitor is 81, respiratory rate 18/20, blood pressure 145/69. Oxygen saturation on nasal cannula is 99%. HEENT: Normocephalic, atraumatic. No JVD. CARDIOVASCULAR: Systolic ejection murmur at the lower left sternal border. Positive S3 gallop. LUNGS: Decreased breath sounds with crackles at the bases. Mild bilateral rhonchi. No wheezing. EXTREMITIES: Mild edema. No cyanosis, no clubbing. Calves are nontender to palpation. GI: Abdomen is soft, nontender and nondistended. Bowel sounds are positive. SKIN: No acute rash. NEUROLOGIC: Limited at the present time. PERTINENT LABORATORY DATA: Chest x-ray was done last night and reviewed. Compared to the film of 09/24/2017, the most present film shows an increase in pulmonary vascular congestion. CBC: White count 7.2, hemoglobin 9.8, hematocrit 29.6, platelets of 137,000. Complete metabolic profile: Carbon dioxide 36, glucose 132, B-type natriuretic peptide 2230. Rest of the metabolic profile is within normal limits. IMPRESSION: 1. Recurrent congestive heart failure. 2. Chronic obstructive pulmonary disease. 3. Mild bronchospasm. 4. Diabetes mellitus. 5. Anemia. PLAN: I did discuss the case with the ICU nurse at length. I have also discussed the case with the patient at length, and reviewed the chart at length. The patient presents back to [facility] with a 3-day history of worsening pulmonary symptoms. The patient does admit to dietary noncompliance at home. I did discuss this issue with him at length. I have also reviewed the chest x-ray. Compared to the previous film, the most current film shows a definite increase in pulmonary vascular congestion. The patient was given Lasix in the emergency room. Consultation with Dr. Vaughan has been ordered. On physical exam, the patient is in mild bronchospasm. I will start the patient on nebulizer treatments and low-dose intravenous steroids this morning. He did get Solu-Medrol in the emergency room. There is no significant alveolar-arterial gradient. Oxygen saturation on nasal cannula this morning is 99%. The patient does feel better and is clinically improved this morning. Additional pulmonary intervention will be based on the clinical status of the patient. I will discuss the above with Dr. Joshi. Thank you very much for this pulmonary consultation. Larry Yap MD [facility]
[2017-10-08] MEDS: Metoprolol Succinate 50 mg XL Tab PO SCH (09:24)
[2017-10-08] MEDS: Digoxin 125 mcg (0.125 mg) Tab PO SCH (09:24)
[2017-10-08] MEDS: MethylPREDNISolone 40 mg Vial IVP SCH ×2 (09:25→22:09)
--- NOTE | 2017-10-08 09:44 | RAD ---
HISTORY: sob COMPARISON: 09/24/2017 FINDINGS: LUNGS: There is improvement in the degree of vascular congestion and interstitial congestion PLEURA: No significant pleural effusion identified, no pneumothorax apparent. CARDIOVASCULAR: Mild cardiomegaly OSSEOUS STRUCTURES: No significant abnormalities. VISUALIZED UPPER ABDOMEN: Normal. OTHER FINDINGS: None. IMPRESSION: Improved vascular and interstitial congestion
[2017-10-08] MEDS: Insulin Reg-MEDIUM-Coverage SC SCH ×3 (12:11→21:35)
--- NOTE | 2017-10-08 17:36 | CARD ---
APPROVED REPORT EKG Measurement Heart [id number] 140P45 [id number] <Conclusion> Normal sinus rhythm Possible Left atrial enlargement Septal infarct, age undetermined Abnormal ECG
[2017-10-08] MEDS: Albuterol-Ipratrop 3 mg / 0.5 (3 ml) UD IH SCH (20:35)
[2017-10-08] MEDS: Budesonide 0.5 mg/2 ml Inhal Susp UD IH SCH (20:35)
--- NOTE | 2017-10-08 23:19 | CON ---
DATE: 10/08/2017 CARDIOLOGY CONSULTATION HISTORY OF PRESENT ILLNESS: The patient is a 77-year-old male who presents with dyspnea. Patient has documented severe pulmonary hypertension with normal LV function. In addition, patient has moderate aortic insufficiency. His other cardiac risk factors include diabetes mellitus and hypercholesterolemia. He was discharged from his last admission on Eliquis, Toprol as well as Digitek for better heart rate control. He was to be evaluated by pulmonary for possible treatment of his pulmonary hypertension. The patient received Lasix with slight improvement of his breathing. REVIEW OF SYSTEMS: He denies chest pain, occasional edema, but his shortness of breath is better. PHYSICAL EXAMINATION: VITAL SIGNS: Blood pressure 117/48, heart rates in the 70s. NECK: Negative JVD. LUNGS: Decreased breath sounds bilaterally. HEART: Reveal S1, S2. EXTREMITIES: Mild edema. LABORATORY DATA: His ProBNP is mildly elevated. Hemoglobin is 9.8, glucose is 132 with a potassium of 3.7. IMPRESSION: 1. His dyspnea is predominantly from severe pulmonary hypertension. 2. Pedal edema is from his pulmonary hypertension. 3. His abnormal x-ray findings is consistent with pulmonary hypertension. 4. Diabetes mellitus. 5. Dyspnea. PLAN: Given these findings, being on Lasix may help his pedal edema. He will need treatment for his pulmonary hypertension to help his breathing. Tony Vaughan MD
[2017-10-09] MEDS: Albuterol-Ipratrop 3 mg / 0.5 (3 ml) UD IH SCH ×4 (01:49→19:02)
[2017-10-09] MEDS: Budesonide 0.5 mg/2 ml Inhal Susp UD IH SCH ×2 (07:48→19:02)
[2017-10-09] MEDS: Insulin Reg-MEDIUM-Coverage SC SCH ×4 (08:00→21:35)
[2017-10-09] MEDS: MethylPREDNISolone 40 mg Vial IVP SCH ×2 (09:55→21:31)
[2017-10-09] MEDS: Metoprolol Succinate 50 mg XL Tab PO SCH (09:59)
[2017-10-09] MEDS: Digoxin 125 mcg (0.125 mg) Tab PO SCH (10:01)
--- NOTE | 2017-10-09 13:40 | PN ---
DATE: 10/09/2017 PULMONARY PROGRESS NOTE SUBJECTIVE: The patient was seen and examined in Intensive Care Unit. He is sitting up in chair. He states he feels better. He is less short of breath. There is still occasional cough, productive of white sputum. PHYSICAL EXAMINATION: VITAL SIGNS: His temperature is 97.9, pulse 66, respirations 20, his pulse oximetry on nasal cannula is 93%, blood pressure 130/80. HEAD, EARS, NOSE AND THROAT: Within normal limits. NECK: Supple. There is no jugular vein distention. CHEST: Symmetrical. HEART: S1 and S2. No S3. Irregular. LUNGS: Diminished breath sounds at both bases with few rhonchi. No wheezing. GASTROINTESTINAL: Soft and nontender. No organomegaly. EXTREMITIES: No pedal edema. SKIN: No acute skin rash. NEUROLOGIC: Limited at present time. LABORATORY DATA: There are no new labs to review. DIAGNOSTIC STUDIES: Pertinent testing reviewed. Chest x-ray demonstrated increased pulmonary vascular congestion as of yesterday's. Today's chest x-ray is still pending. He is also slightly anemic with hemoglobin of 9.8 and platelet count is 137,000. His BNP is slightly elevated at 2000. ASSESSMENT: 1. Chronic obstructive pulmonary disease exacerbation. 2. Recurrent congestive heart failure. 3. Mild bronchospasm. 4. Anemia. PLAN: Discussed with ICU team. The patient's respiratory status has improved after one day of intensive therapy with diuretics as well as nebulizer treatment. All those measures will continue. He is being evaluated by Cardiology for causes of recurrent congestive heart failure. Chronic obstructive pulmonary disease is starting to improve. Jas Delong MD
--- NOTE | 2017-10-09 18:25 | PN ---
DATE: SUBJECTIVE: I saw him sitting out of bed to chair, in the Intensive Care Unit. He is less short of breath, less swollen. He is eating his breakfast. lots of questions. MEDICATIONS: He is Digoxin, albuterol, metformin, insulin coverage, Lasix IV, Lipitor, Pulmicort, Solu-Medrol and Toprol. PHYSICAL EXAMINATION: VITAL SIGNS: He has a 97.4 temperature, 77 pulse, 128/42 blood pressure, 18 respiratory rate, 100% O2 sat on oxygen. HEENT: Head is atraumatic, normocephalic. Throat is moist. NECK: Supple. HEART: Regular rate. LUNGS: Decreased breath sounds but clear. ABDOMEN: Soft, morbidly obese. EXTREMITIES: +2/4 pitting edema. LABORATORY DATA: He has a 146 sodium, potassium 3.7, BUN 13, creatinine 0.7, with blood sugars 125, calcium is 9, total bili is 0.8, AST is 18, ALT is 20, alkaline phosphatase 68. Lactate dehydrogenase is 474. Troponin I is less than 0.01. BNP is 2230. Total protein 6.2. White count is 7.2, hemoglobin 9.8, hematocrit 29.6, platelets of 137. INR is 1.36. ASSESSMENT AND PLAN: He is being seen by Pulmonary and Cardiology. We will check his labs tomorrow. Encouraged to get bed to chair, do well in physical therapy when they come. We will continue to diurese him, and Solu-Medrol. Slowly improving. Congestive heart failure, chronic obstructive pulmonary disease, diabetes, obesity and edema. Poli Joshi DO [facility]
[2017-10-10] MEDS: Albuterol-Ipratrop 3 mg / 0.5 (3 ml) UD IH SCH ×4 (01:00→19:56)
[2017-10-10] MEDS: Budesonide 0.5 mg/2 ml Inhal Susp UD IH SCH ×2 (07:30→20:12)
[2017-10-10] MEDS: Insulin Reg-MEDIUM-Coverage SC SCH ×4 (08:11→21:45)
[2017-10-10 08:16] LABS: HEMOGLOBIN 10.4 g/dL (14.0-18.0); MEAN CELL VOLUME 75.2 fl (80.0-105.0); MEAN CORPUSCULAR HEMOGLOBIN 24.8 pg (25.0-35.0); MEAN CORPUSCULAR HGB CONC 32.9 g/dl (31.0-37.0); MEAN PLATELET VOLUME 10.2 fl (7.0-11.0); RBC 4.2 10^6/uL (3.5-6.1); WHITE BLOOD COUNT 9.9 10^3/ul (4.5-11.0)
[2017-10-10 08:45] LABS: ALB/GLOB RATIO 1.2 (1.1-1.8); ALBUMIN 3.5 g/dL (3.0-4.8); ALT/SGPT 19 U/L (7-56); AST/SGOT 14 U/L (17-59); BLOOD UREA NITROGEN 31 mg/dL (7-21); CALCIUM 9.1 mg/dL (8.4-10.5); GFR AFRICAN-AMERICAN > 60; GFR NON-AFRICAN AMERICAN > 60
[2017-10-10] MEDS: Digoxin 125 mcg (0.125 mg) Tab PO SCH (09:03)
[2017-10-10] MEDS: Metoprolol Succinate 50 mg XL Tab PO SCH (09:03)
[2017-10-10] MEDS: MethylPREDNISolone 40 mg Vial IVP SCH ×2 (09:03→21:47)
--- NOTE | 2017-10-10 09:10 | PN ---
DATE: 10/10/2017 PULMONARY NOTE SUBJECTIVE: Patient appears comfortable this morning. He is not short of breath at rest. He is out of bed, sitting in the chair. OBJECTIVE: VITAL SIGNS: Temperature is 98.1, pulse 71, respirations 18/20, blood pressure 121/50. Oxygen saturation on nasal cannula is 99%. HEENT: Normocephalic, atraumatic. No JVD. CARDIOVASCULAR: Systolic ejection murmur at the lower left sternal border. Positive S3 gallop. LUNGS: Decreased breath sounds at the bases with crackles. Less rhonchi. No wheezing. EXTREMITIES: Mild edema. No cyanosis, no clubbing. Calves are nontender to palpation. GASTROINTESTINAL: Abdomen is soft, nontender and nondistended. Bowel sounds are positive. SKIN: No acute rash. NEUROLOGIC: Exam limited at the present time. IMPRESSION: 1. Recurrent congestive heart failure. 2. Chronic obstructive pulmonary disease. 3. Mild bronchospasm. 4. Diabetes mellitus. 5. Anemia. PLAN: The patient appears comfortable this morning. He is not short of breath at rest. He does state to feeling much better overall. On physical exam, there is certainly less bronchospasm noted. In addition, there is no significant alveolar-arterial gradient. I will continue the current nebulizer treatments and low-dose intravenous steroids for now. The patient also remains on Lasix therapy. Clinical status of the patient is significantly improved - compared to the initial presentation. His overall status/prognosis does remain guarded. Patient is advised to be out of bed most of the day-- if he can. I will discuss the above with Dr. Joshi. Larry Yap MD [facility]
[2017-10-10] MEDS ORDERED: metOLazone 5 MG TAB PO STA (12:14)
--- NOTE | 2017-10-10 14:28 | PN ---
DATE: SUBJECTIVE: He is sitting out of bed to chair, it is hard for him to lie flat. He is a little bit better with breathing, but his legs are getting the twice the size that they were yesterday. He is eating okay. He walks slowly. PHYSICAL EXAMINATION VITAL SIGNS: Temperature 98.1, 71 pulse, 121/50 blood pressure, 20 respiratory rate, 99% O2 saturation on 2 liters. HEENT: Head is atraumatic and normocephalic. HEART: Regular rate. LUNGS: Decreased breath sounds, but clear. No wheezes, rhonchi, or rales. ABDOMEN: Soft. Morbidly obese. EXTREMITIES: +4/4 pitting edema, yesterday that were at least +2, so the swelling got a lot worse. MEDICATIONS: I will increase his medications. He is on digoxin; DuoNeb; Eliquis; Glucophage; insulin; Lasix, I will go from 40 mg IV daily to 40 mg IV b.i.d., Lipitor, Pulmicort. He is still on Solu-Medrol 20 mg IV q.12h., may be one more day of that and Toprol. LABORATORY DATA: He has a 144 sodium, potassium of 4.6, BUN 31, creatinine 0.8, GFR greater than 60. Sugar is 137, calcium is 9.1, total bili is 0.4. AST is 14, ALT is 19, alkaline phosphatase 69, total protein is 6.5. White count is 9.9, hemoglobin 10.4, hematocrit 31.6, platelets of 146,000. INR is 1.36. PLAN: He is being seen by Pulmonology, Cardiology is yet to see him. I will re-consult them for CHF; hopefully, they will stop by today. He is much more swollen in the legs today. I do not want to discharge him, have him bounce back, increasing his Lasix, encourage him to walk in the room and hopefully, tomorrow I can discharge him if he improves. He is here for COPD, CHF, very bad edema in the legs. Poli Joshi DO [facility] # [id number] MTDD
--- NOTE | 2017-10-10 16:39 | PN ---
DATE: 10/10/2017 LOCATION: The patient in room 260, bed 1. This progress note being written on behalf of Dr. Vaughan who originally did consult on this patient on 10/08/2017. REASON FOR CONSULTATION: Shortness of breath and swelling of legs. BRIEF HISTORY: Dr. Joshi requested to evaluate the patient for his swelling of legs. The patient denies any chest pain, palpitation. He gets shortness of breath on exertion and swelling of legs decreases a little bit during the night when he is sleeping and in the morning, it starts getting increased again. The patient has known pulmonary hypertension, diabetes mellitus, and hypercholesterolemia. PHYSICAL EXAMINATION: VITAL SIGNS: Blood pressure 121/50, respirations 20, patient is afebrile, pulse 71. HEENT: Head is normocephalic. Conjunctivae slightly pale. NECK: JVP low. Carotids equal. THORAX: AP diameter normal, slightly diminished breath sounds in the lung bases. CARDIOVASCULAR: S1 and S2. Prominent aortic diastolic murmur consistent of aortic insufficiency. ABDOMEN: Protuberant. No organomegaly. EXTREMITIES: The patient has bilateral edema, 3 to 4+. LABORATORY DATA: Chest x-ray reviewed, consistent with CHF, also has blunting of the both costophrenic angle, more on the right than the left. The patient had cardiac catheterization on 09/24/2017, which showed LV ejection fraction of 70% to 75%, single vessel coronary artery disease with 50% stenosis in the mid LAD, otherwise no significant coronary artery disease. Moderate aortic insufficiency. The patient had echocardiogram on 09/22/2017. It showed LV ejection fraction of 62%, which is normal. Left ventricular size is normal, concentric left ventricular hypertrophy. Normal LV segmental wall motion, grade I abnormal relaxation pattern, moderate aortic regurgitation, mitral regurgitation is mild to moderate, severe pulmonary hypertension with RVSP 82 mmHg. DIAGNOSES AND PLAN: Congestive heart failure with blunting of the both costophrenic angles, more on the right than the left, suggestive of pleural effusion; severe pulmonary hypertension; moderate aortic regurgitation; left ventricular hypertrophy; diastolic dysfunction; diabetes mellitus; obesity; multifactorial related to obesity and also venous stasis; pulmonary hypertension; congestive heart failure changes on the chest x-ray. The patient was on Lasix 40 IV daily, Dr. Joshi increased it to 40 IV b.i.d. I will give Zaroxolyn 5 mg one stat dose today to increase the diuresis. The patient is already on digoxin 0.125 p.o. daily, DuoNeb hand nebulizer therapy, Eliquis 5 mg b.i.d., metformin 500 b.i.d., Lipitor 20 daily, metoprolol succinate [address] Vaughan will follow the patient tomorrow. Wayne Danielle MD
[2017-10-11] MEDS: Albuterol-Ipratrop 3 mg / 0.5 (3 ml) UD IH SCH ×4 (01:14→19:56)
[2017-10-11 06:35] LABS: HEMOGLOBIN 10.1 g/dL (14.0-18.0); MEAN CELL VOLUME 74.2 fl (80.0-105.0); MEAN CORPUSCULAR HEMOGLOBIN 24.6 pg (25.0-35.0); MEAN CORPUSCULAR HGB CONC 33.1 g/dl (31.0-37.0); MEAN PLATELET VOLUME 10.7 fl (7.0-11.0); RBC 4.11 10^6/uL (3.5-6.1); RED CELL DISTRIBUTION WIDTH 18.7 % (11.5-14.5); WHITE BLOOD COUNT 7.5 10^3/ul (4.5-11.0)
[2017-10-11 07:05] LABS: ALB/GLOB RATIO 1.1 (1.1-1.8); ALBUMIN 3.4 g/dL (3.0-4.8); ALT/SGPT 26 U/L (7-56); AST/SGOT 24 U/L (17-59); BLOOD UREA NITROGEN 38 mg/dL (7-21); CALCIUM 9.3 mg/dL (8.4-10.5); GFR AFRICAN-AMERICAN > 60; GFR NON-AFRICAN AMERICAN > 60
[2017-10-11] MEDS: Insulin Reg-MEDIUM-Coverage SC SCH ×4 (08:02→22:34)
[2017-10-11] MEDS ORDERED: Bisacodyl 5mg EC Tab PO ONE (08:07)
--- NOTE | 2017-10-11 08:21 | PN ---
DATE: 10/11/2017 PULMONARY NOTE SUBJECTIVE: The patient appears comfortable this morning. He is not short of breath at rest. He is out of bed, sitting in the chair. PHYSICAL EXAMINATION: VITAL SIGNS: Temperature is 98.1, pulse 69, respirations 18, blood pressure 113/50. Oxygen saturation on nasal cannula is 100%. HEENT: Normocephalic, atraumatic. No JVD. CARDIOVASCULAR: Systolic ejection murmur at the lower left sternal border. Positive S3 gallop. LUNGS: Better breath sounds at the bases with less crackles. No rhonchi or wheezing this morning. EXTREMITIES: Mild edema. No cyanosis, no clubbing. Calves are nontender to palpation. GI: Abdomen is soft, nontender and nondistended. Bowel sounds are positive. SKIN: No acute rash. NEUROLOGIC: Limited at the present time. IMPRESSION: 1. Recurrent congestive heart failure. 2. Chronic obstructive pulmonary disease. 3. Mild bronchospasm. 4. Diabetes mellitus. 5. Anemia. PLAN: The patient appears comfortable this morning. He is not short of breath at rest. He does state to feeling much, much better overall. On physical exam, his bronchospasm continues to resolve. In addition, the oxygen saturation on nasal cannula is now 100%. I will continue with the current nebulizer treatments and change to oral steroids this morning. The patient remains on intravenous Lasix. Input by Cardiology is noted. Clinical status of the patient is significantly improved - compared to the initial presentation. I will discuss the above with Dr. Joshi. Larry Yap MD [facility]
[2017-10-11] MEDS: Digoxin 125 mcg (0.125 mg) Tab PO SCH (09:43)
[2017-10-11] MEDS: POLYETHYLENE GLYCOL 3350 17 GM/Dose PACKET PO SCH (09:43)
[2017-10-11] MEDS: Metoprolol Succinate 50 mg XL Tab PO SCH (09:44)
--- NOTE | 2017-10-11 12:17 | HP ---
HISTORY OF PRESENT ILLNESS: He came back to the emergency room. He was seeing his own primary care doctor on the outpatient. He comes in with several days of shortness of breath, leg swelling, exertional dyspnea. He was okay when he was sitting. When he got up to walk, it happened. He is a 77-year-old -[place] man with a history of CHF, aortic insufficiency, hypertension, diabetes, atrial fibrillation and he is back in the hospital again swollen, short of breath, but okay at rest. PAST MEDICAL HISTORY: He has a past medical history of AFib, CHF, hypertension, pneumonia history, diabetes, arthritis. He has had a right knee surgery. He has had an inguinal hernia repair. FAMILY HISTORY: There is hypertension and diabetes in the family. SOCIAL HISTORY: He is a former smoker. He still drinks alcohol occasionally. No substance abuse. ALLERGIES: NO KNOWN DRUG ALLERGIES. MEDICATIONS: He is on Eliquis, Lipitor, digoxin, Lasix, Glucophage and Toprol. REVIEW OF SYSTEMS: No acute vision changes or hearing changes. No sweats or fevers. He is short of breath, but no cough. He has dyspnea on exertion. No chest pain or palpitations. No abdominal pain, diarrhea, constipation, nausea, vomiting. No problems urinating. No back pain. No neck pain. No headache or dizziness. No tremors. He is comfortable. Just when he starts to move, he gets short of breath. PHYSICAL EXAMINATION: VITAL SIGNS: He has 99.4 temp, 86 pulse, 22 respiratory rate, 138/70 blood pressure, 99% O2 sat on room air. GENERAL: He is well appearing, nontoxic, comfortable. He is resting in Intensive Care Unit. Alert and oriented x3. HEENT: Head is atraumatic, normocephalic. Extraocular muscles are intact. Pupils equal, reactive to light. Throat is moist. NECK: Supple. LUNGS: He has got decreased breath sounds. The lungs were clear to auscultation. HEART: Regular rate. Normal S1 and S2. ABDOMEN: Soft, nontender. Positive bowel sounds. No guarding. No rebound. No CVA tenderness. EXTREMITIES: Have +1/4 pitting edema, lower extremities. NEUROLOGIC: GCS is 15. Cranial nerves II through XII grossly intact. Normal speech. Neurologically is intact. SKIN: Warm and dry. No apparent rashes or ulcers. PSYCHIATRIC: Alert and oriented x3. LYMPH NODES: Thyroid midline. No palpable appreciable lymphadenopathy. LABORATORY DATA: He had multiple tests done. He has a 146 sodium, potassium 3.7, BUN 13, creatinine 0.7, GFR is greater than 60, sugar is 132 and 173. I put him on insulin coverage, put him back on his metformin. Calcium is 9, total bili is 0.8, AST is 18, ALT is 20, alk phos 68, lactate dehydrogenase is 474. Troponin I is less than 0.01. BNP is high at 2230. He will be on IV Lasix. Total protein 6.2. INR is 1.36. He has a 7.2 white count, 9.8 hemoglobin, 29.6 hematocrit with 137 platelets. He has a chest x-ray, which is pending. IMPRESSION: He has consults with Pulmonary and Cardiology. We will diurese him. He is in the Intensive Care Unit. He was put on Solu-Medrol IV by the conflicts analyst. We will see how he does. If we can get him feeling better quickly and if physical therapy says he is fine to go home and more shortness of breath, he has a shot of going home this afternoon. We will see what the road mixer operator want to do or say. He is here for congestive heart failure, little chronic obstructive pulmonary disease, also dyspnea on exertion with a history of atrial fibrillation, diabetes, hypertension, high cholesterol. Poli Joshi DO
--- NOTE | 2017-10-11 14:00 | PN ---
DATE: He is constipated this morning, looking for a medication to help him move his bowels. I will give him Dulcolax tablet and some MiraLax. Also, staff electronic warfare officer saw him added Zaroxolyn to his IV Lasix twice a day, digoxin, albuterol, metformin. He is eating well. His legs are less swollen today with the increase in Lasix. OBJECTIVE VITAL SIGNS: He has got a 98.1 temperature, 69 pulse, 116/49 blood pressure, 20 respiratory rate, saturation on room air. HEENT: His head is atraumatic, normocephalic. HEART: Regular rate. LUNGS: Decreased breath sounds, but clear. ABDOMEN: Soft, morbidly obese, nontender. Positive bowel sounds. EXTREMITIES: +2/4 pitting edema. LABORATORY DATA: He has a 142 sodium, potassium 4.4, BUN is 38, creatinine is 0.8, GFR is greater than 60, sugar is 124, calcium is 9.3, total bilirubin is 0.7, AST is 24, ALT is 26, alkaline phosphatase 66, total protein is 6.4. White count 7.5, hemoglobin 10.1, hematocrit 30.5 with 157,000 platelets. We will see what Cardiology has to say this morning. If he does well after lunch, I will possibly consider discharging him this afternoon if it is okay with Cardiology. He is here for CHF, COPD, diabetes, obesity and constipation Poli [facility] DO [facility]
[2017-10-11] MEDS: Sildenafil 20 MG TAB PO SCH (17:45)
[2017-10-12] MEDS: Albuterol-Ipratrop 3 mg / 0.5 (3 ml) UD IH SCH ×4 (01:16→13:39)
[2017-10-12 07:12] VITALS: O2SAT 96
[2017-10-12] MEDS: Insulin Reg-MEDIUM-Coverage SC SCH ×2 (08:16→12:09)
--- NOTE | 2017-10-12 08:43 | PN ---
DATE: 10/11/2017 CARDIOLOGY FOLLOWUP SUBJECTIVE: The patient's breathing is much improved. PHYSICAL EXAMINATION: VITAL SIGNS: Blood pressure 114/44, heart rate in the 60s. NECK: Negative JVD. LUNGS: Without rales. HEART: S1, S2. EXTREMITIES: Decreasing edema. LABORATORY DATA: Hemoglobin is 10.1. Chemistries: BUN and creatinine 38 and 0.8. IMPRESSION: 1. Pedal edema. 2. Pulmonary hypertension. 3. Diabetes mellitus. 4. Recurrent dyspnea. Given these findings, I have an extensive discussion with the patient about low-salt diet. The patient will need to see a coil spring assembler for possible treatment for his pulmonary hypertension. Tony Vaughan MD
--- NOTE | 2017-10-12 09:39 | PN ---
DATE: 10/12/2017 PULMONARY NOTE SUBJECTIVE: The patient appears comfortable this morning. He is not short of breath at rest. PHYSICAL EXAMINATION: VITAL SIGNS: (Last noted in the computer): Temperature is 97.0, pulse 66, respirations 18/20, blood pressure 131/49. Oxygen saturation on room air is 97%. HEENT: Normocephalic, atraumatic. No JVD. CARDIOVASCULAR: Systolic ejection murmur at the lower left sternal border. Questionable S3 gallop. LUNGS: Improved breath sounds at the bases with much less crackles. No rhonchi. No wheezing. EXTREMITIES: Less edema. No cyanosis. No clubbing. Calves are nontender to palpation. GI: Abdomen is soft, nontender and nondistended. Bowel sounds are positive. SKIN: No acute rash. NEUROLOGIC: Limited at the present time. PERTINENT LABORATORY DATA: I did review the echocardiogram results from 09/22/2017 (last admission). The right ventricular systolic pressure is 82 mm Hg - consistent with severe pulmonary hypertension. IMPRESSION: 1. Recurrent congestive heart failure. 2. Chronic obstructive pulmonary disease. 3. Mild bronchospasm. 4. Pulmonary hypertension. 5. Diabetes mellitus. 6. Anemia. PLAN: The patient appears comfortable this morning. He is not short of breath at rest. He does state to feeling much, much better overall. On physical exam, his bronchospasm has primarily resolved. In addition, the alveolar-arterial gradient has also resolved. Oxygen saturation on room air is now 97%. I will continue with the current nebulizer treatments and oral steroids (changed yesterday) for now. I did review the last echocardiogram as above. The right ventricular systolic pressure is significantly elevated. I did start the patient on Revatio yesterday. I also discussed the case with Dr. Vaughan at length yesterday. The patient may very well need a right heart cardiac catheterization - for the medication to be dispensed by the insurance companies. I also gave the patient my number/information for a follow up outpatient appointment this morning. The clinical status of the patient is significantly improved. I will discuss the above with Dr. Joshi this morning. Larry Yap MD [facility] # [id number] [facility]ITA
[2017-10-12] MEDS: POLYETHYLENE GLYCOL 3350 17 GM/Dose PACKET PO SCH (10:17)
[2017-10-12] MEDS: Sildenafil 20 MG TAB PO SCH (10:18)
[2017-10-12] MEDS: Digoxin 125 mcg (0.125 mg) Tab PO SCH (10:18)
[2017-10-12] MEDS: Metoprolol Succinate 50 mg XL Tab PO SCH (10:18)
[2017-10-12 10:25] VITALS: PULSE 89
[2017-10-12 12:56] VITALS: BP 95/58; PULSE 82; RESP 18; TEMP 98.1
--- NOTE | 2017-10-12 13:10 | PN ---
DATE: 10/12/2017 CARDIOLOGY FOLLOWUP SUBJECTIVE: The patient's breathing is without issues at rest. PHYSICAL EXAMINATION: VITAL SIGNS: Blood pressure is 115/84 with the heart rates in the 80s. NECK: Negative JVD. LUNGS: Without rales. HEART: Reveals S1, S2. EXTREMITIES: Trace edema. LABORATORY DATA: Hemoglobin is 10.1. Chemistries: Glucose is 133. IMPRESSION: 1. Pulmonary hypertension. 2. Recurrent dyspnea. 3. Pedal edema. 4. Diabetes mellitus. PLAN: Given these findings, the patient has been started on sildenafil The patient is stable from a cardiac perspective for discharge. Tony Vaughan MD
--- NOTE | 2017-10-12 15:05 | PN ---
Loy is resting comfortably, out of bed to chair. I also saw him with Dr. Vaugahn. He is able to go home. We had a long discussion about no more salt in his diet. He will be digoxin; DuoNebs; Eliquis; Glucophage; Lasix; Lipitor; MiraLax; prednisone at 30 mg for three days, 20 mg for three days, 10 mg for three days and stop and Toprol. Also, he understands to watch a good diet. His labs were good. Last blood sugar was 123. Hopefully, he will do well and come into the office in two days. Poli Joshi DO
--- NOTE | 2017-10-13 04:03 | DS ---
HISTORY OF PRESENT ILLNESS: Loy Sutton who is resting comfortable, out of bed to chair, still has not gone to the bathroom. I ordered a Dulcolax suppository this morning. Hopefully, this will help him move his bowels. He is going to go home on digoxin, albuterol, Eliquis, Glucophage, Lasix, Lipitor, MiraLax, prednisone in decreasing order, Toprol and now they added sildenafil 20 mg twice a day. He will follow up with me in the office and also Dr. Vaughan and Dr. Yap. PHYSICAL EXAMINATION: VITAL SIGNS: He has a 98.7 temp, 77 pulse, 101/42 blood pressure, also 131/49 blood pressure, 20 respiratory rate, 96% O2 sat on room air. HEENT: His head is atraumatic, normocephalic. HEART: Regular rate. LUNGS: Decreased breath sounds. ABDOMEN: Soft, morbidly obese. EXTREMITIES: +2/4 pitting edema, which is about his baseline. MEDICATIONS: He will go home on his medications. LABORATORY DATA: He has a 7.5 white count, 10.1 hemoglobin, 157 platelets. He has the last blood sugar was 135, BUN was 38, creatinine 0.8, AST was 24, ALT was 26, alk phos 66. ASSESSMENT AND PLAN: Overall, he is more comfortable, not short of breath. He is ambulating well. We will get him home. See him in the office. A patient who had congestive heart failure, pulmonary hypertension, chronic obstructive pulmonary disease, edema, obesity, constipation. Poli Joshi DO
--- NOTE | 2017-10-13 14:50 | PQF CHF ---
10/13/17 Dr Joshi, Recurrent CHF and diastolic dysfunction are documented on progress notes. Please verify type and severity of CHF on this admission, as listed. Thank you. Clarification of your documentation is requested to better reflect the severity of illness and intensity of treatment of your patient. Indicators present [] Diagnosis of CHF and/or history of CHF [] BNP > 200 [] Imaging Finding of Pulmonary Edema /Pleural Effusions [] Fluid/Volume Overload [] Pitting edema [] Ejection Fraction < 40% (Indicative of Systolic Heart Failure) [] Ejection Fraction > 40% (Indicative of Diastolic Heart Failure) [] Dyspnea / Orthopenea / Paroxysmal Nocturnal Dyspnea [] Other: Location in the medical record that reflects the above clinical findings: [] Treatment Provided: [] PHYSICIAN'S RESPONSE Based on your medical judgment of the clinical indicators outlined above, are you treating this patient for a known or suspected: [xx] Acute CHF [] Systolic []xxx Diastolic [] Combined [xxx] Chronic CHF [] Systolic [xxx] Diastolic [] Combined [] Acute on Chronic CHF []Systolic [] Diastolic [] Combined [] CHF due hypertension [] Acute systolic []Chronic systolic [] Acute/ chronic systolic [] Other, please indicate: [] [] If Unable to Determine, please check the box, sign and date. Present On Admission (POA) Indicator: [] Present at the time of admission [] Not present at the time of admission [] Clinically Undetermined In responding to this query, please exercise your independent professional judgment. The fact that a question is asked does not imply that any particular answer is desired or expected. Thank you for your clarification on this documentation. If you have any questions please call:[ ] * Thank you, [ ] jacquard loom fixer [facility]
== END 2017-10-12 17:05 | disposition home or self-care (01) | DRG 292 ==
LOC: ED 20:51 → ERH 23:00 → ICU 10-08 01:52 → OBSVTOIN 10-08 09:51 → 2RNO 10-09 14:04
PROVIDERS: ADMIT Family Medicine; ATTEND Family Medicine
DX: I11.0 Hypertensive heart disease with heart failure (principal); I50.33 Acute on chronic diastolic (congestive) heart failure; J44.1 Chronic obstructive pulmonary disease with (acute) exacerbation; I27.20 Pulmonary hypertension, unspecified; I48.0 Paroxysmal atrial fibrillation; E11.9 Type 2 diabetes mellitus without complications; D64.9 Anemia, unspecified; J98.01 Acute bronchospasm; E78.00 Pure hypercholesterolemia, unspecified; E66.9 Obesity, unspecified; K59.00 Constipation, unspecified; Z79.01 Long term (current) use of anticoagulants; Z82.49 Family history of ischemic heart disease and other diseases of the circulatory system; Z83.3 Family history of diabetes mellitus; Z87.01 Personal history of pneumonia (recurrent); Z87.891 Personal history of nicotine dependence; R40.2412 Glasgow coma scale score 13-15, at arrival to emergency department; R40.2413 Glasgow coma scale score 13-15, at hospital admission; Z68.35 Body mass index [BMI] 35.0-35.9, adult; I08.0 Rheumatic disorders of both mitral and aortic valves

== ENCOUNTER 2018-03-23 16:50 | Inpatient (IN) | payer OTHER ==
--- NOTE | 2018-03-23 17:07 | ED PDOC ---
Arrival/HPI - General Chief Complaint: Trauma Time Seen by Provider: 03/23/18 16:54 Historian: Patient, EMS - History of Present Illness Narrative History of Present Illness (Text): 03/23/18 17:07 Patient is a 78 year old male whose past medical history includes diabetes, hypertension, hyperlipidemia, COPD, and CHF, who presents to the Emergency department by EMS for falling secondary to leg weakness. As per EMS patient was found on the floor of his home, and denied any pain, head trauma, or loss of consciousness. Patient reports that yesterday morning he woke up and found that his bilateral lower extremity felt heavy, which continued to today. Prior to arrival he was walking in his home when his legs felt weak and fell. Patient denies losing consciousness. He tried to make it to his couch but couldn't. He fell on his right side and denies any head or back trauma. Patient mentions having bilateral lower extremity edema, which has recently worsened, and doesn' t take any diuretics. He admits to experiencing dyspnea on exertion, but doesn' t experience any dyspnea when simply talking. Of note patient hasn't been taking any of his medications for the past 3 days because he ran out. Patient denies fevers, chills, cough, chest pain, abdominal pain, nausea, vomiting, diarrhea, dysuria, back pain, neck pain, headache, dizziness, or any other complaint. PMD: Time/Duration: Prior to Arrival Symptom Onset: Sudden Activities at Onset: Light Context: Walking, Home Past Medical History - Provider Review Nursing Documentation Reviewed: Yes - Infectious Disease Hx of Infectious Diseases: None - Cardiac Hx Congestive Heart Failure: Yes Hx Hypertension: Yes - Pulmonary Hx Chronic Obstructive Pulmonary Disease (COPD): Yes - Neurological Hx Neurological Disorder: No - HEENT Hx Cataracts: Yes - Renal Hx Renal Disorder: No - Endocrine/Metabolic Hx Diabetes Mellitus Type 2: Yes - Hematological/Oncological Hx Blood Disorders: No - Integumentary Hx Dermatological Disorder: No - Musculoskeletal/Rheumatological Hx Musculoskeletal Disorders: No Hx Falls: No - Gastrointestinal Hx Gastrointestinal Disorders: No - Genitourinary/Gynecological Hx Genitourinary Disorders: No - Psychiatric Hx Psychophysiologic Disorder: No Hx Substance Use: No - Surgical History Hx Orthopedic Surgery: Yes (R knee sx) - Anesthesia Hx Anesthesia Reactions: No Hx Malignant Hyperthermia: No Family/Social History - Physician Review Nursing Documentation Reviewed: Yes Family/Social History: No Known Family HX Smoking Status: Former Smoker Hx Alcohol Use: Yes (social) Hx Substance Use: No Allergies/Home Meds Allergies/Adverse Reactions: Allergies No Known Allergies Allergy (Verified 03/23/18 17:05) Home Medications: Home Meds Medication Instructions Recorded Confirmed Apixaban [Eliquis] 5 mg PO BID 09/21/17 03/23/18 Atorvastatin [Lipitor] 20 mg PO DAILY 09/21/17 03/23/18 Digoxin [Digitek] 125 mcg PO DAILY 09/21/17 03/23/18 Furosemide [Lasix] 20 mg PO DAILY 09/21/17 03/23/18 Metformin HCl [Glucophage] 500 mg PO BID 09/21/17 03/23/18 Metoprolol Succinate [Toprol Xl] 50 mg PO DAILY 09/21/17 03/23/18 Review of Systems - Physician Review All systems were reviewed & negative as marked: Yes - Review of Systems Constitutional: absent: Fevers, Night Sweats Respiratory: absent: Cough Cardiovascular: DYSON. absent: Chest Pain Gastrointestinal: absent: Abdominal Pain, Diarrhea, Nausea, Vomiting Genitourinary Male: absent: Dysuria Neurological: absent: Headache, Dizziness Physical Exam Vital Signs Reviewed: Yes Vital Signs Temp Pulse Resp BP Pulse Ox 03/23/18 18:17 111/51 L 03/23/18 17:34 118 H 124/73 03/23/18 16:55 98 F 122 H 20 129/80 90 L Temperature: Afebrile Blood Pressure: Normal Pulse: Tachycardic Respiratory Rate: Normal Appearance: Positive for: Well-Appearing Mental Status: Positive for: Alert and Oriented X 3 - Systems Exam Head: Present: Atraumatic, Normocephalic Pupils: Present: PERRL Extroacular Muscles: Present: EOMI Conjunctiva: Present: Normal Mouth: Present: Moist Mucous Membranes Neck: Present: Normal Range of Motion. No: MIDLINE TENDERNESS Respiratory/Chest: Present: Clear to Auscultation, Good Air Exchange. No: Respiratory Distress, Accessory Muscle Use, Tender to Palpation Cardiovascular: Present: Regular Rate and Rhythm, Normal S1, S2. No: Murmurs Abdomen: No: Tenderness, Distention, Peritoneal Signs Back: Present: Normal Inspection. No: Midline Tenderness Upper Extremity: Present: Normal Inspection. No: Cyanosis, Edema Lower Extremity: Present: Edema (+3 pitting edema bilaterally.), Normal ROM. No : Tenderness Neurological: Present: GCS=15, CN II-XII Intact, Speech Normal Skin: Present: Warm, Dry, Normal Color. No: Rashes Psychiatric: Present: Alert, Oriented x 3, Normal Insight, Normal Concentration Medical Decision Making ED Course and Treatment: 03/23/18 17:07 Impression: Patient is a 78 year old male who presents to Emergency department for evaluation s/p falling secondary to leg weakness. Differential Diagnosis included but are not limited to: Lower extremity edema, weakness, Rule out CHF exacerbation, Rule out electrolyte abnormality. Plan: -- EKG -- Labs -- Cardiac enzyme -- Chest X-ray -- Knee X-ray -- Blood work -- O2 therapy via nasal cannula -- Reassess and disposition Prior Visits: Notes and results from previous visits were reviewed. Progress Notes: 03/23/18 17:22 EKG shows Afib at 125bpm with ST depressions and T wave inversions in leads IV, V, . Different from EKG on 09/22/17. Interpreted by me. 03/23/18 17:57 Patient hasn't taken his medications in 2 or so days he states. His HR is 120's so I gave him Metoprolol 2.5mg IV which Improved his HR to 105bpm. Lasix 40mg IV ordered. BP stable. 03/23/18 18:28 Discussed case with , who is aware of and agrees with admitting patient under his service to telemetry. Patient with multiple comorbidites with EKG changes needs full admission. Request consult with for respiratory evaluation and for cardiology evaluation. 03/23/18 18:53 Chest X-ray negative. Knee xray negative. - Lab Interpretations Lab Results: 03/23/18 17:30 03/23/18 17:30 Lab Results 03/23/18 17:30: Sodium 148, Potassium 3.8, Chloride 104, Carbon Dioxide 34 H, Anion Gap 14, BUN 26 H, Creatinine 0.8, Est GFR ( Amer) > 60, Est GFR ( Non-Af Amer) > 60, Random Glucose 120 H, Calcium 8.6, Magnesium 2.2, Lactate Dehydrogenase 493, Total Creatine Kinase 176, Troponin I 0.02 D, NT-Pro-B Natriuret Pep 4520 H 03/23/18 17:30: PT 17.3 H, INR 1.50, APTT 28.1 03/23/18 17:30: WBC 7.4, RBC 4.80, Hgb 10.5 L, Hct 31.3 L, MCV 65.2 L D, MCH 21.9 L, MCHC 33.5, RDW 20.6 H, Plt Count 152, Gran % 81.8 H, Lymph % (Auto) 13.1 L, [place] % (Auto) 5.1, Eos % (Auto) 0.0 L, Baso % (Auto) 0.0, Gran # 6.03, Lymph # (Auto) 1.0 L, [place] # (Auto) 0.4, Eos # (Auto) 0.0, Baso # (Auto) 0.00 03/23/18 17:24: POC Glucose (mg/dL) 122 H I have reviewed the lab results: Yes - RAD Interpretation Radiology Orders: 03/23/18 17:05 CHEST ONE VIEW [RAD] Stat KNEE LEFT 2 VIEWS (AP & LAT) [RAD] Stat PELVIS ONE VIEW [RAD] Stat - EKG Interpretation Interpreted by ED Physician: Yes Type: 12 lead EKG - Medication Orders Current Medication Orders: Discontinued Medications Furosemide (Lasix) 40 mg IVP STAT STA Stop: 03/23/18 17:58 Last Admin: 03/23/18 18:17 Dose: 40 mg MAR Blood Pressure Document 03/23/18 18:17 [email or web address] (Rec: 03/23/18 18:18 [email or web address] [id number]) Blood Pressure Blood Pressure (100/60-150/90) 111/51 IVP Administration Document 03/23/18 18:17 [email or web address] (Rec: 03/23/18 18:18 [email or web address] [id number]) Charges for Administration # of IVP Administrations 1 Metoprolol Tartrate (Lopressor) 2.5 mg IVP STAT STA Stop: 03/23/18 17:27 Last Admin: 03/23/18 17:34 Dose: 2.5 mg IVP Administration Document 03/23/18 17:34 SZA (Rec: 03/23/18 17:35 SZA [id number]) Charges for Administration # of IVP Administrations 1 MAR Pulse and Blood Pressure Document 03/23/18 17:34 REI (Rec: 03/23/18 17:35 REI [id number]) Pulse Pulse Rate (60-90) 118 Blood Pressure Blood Pressure (100/60-150/90) 124/73 - Scribe Statement The provider has reviewed the documentation as recorded by the Scribe David Mosley Provider Scribe Attestation: All medical record entries made by the Scribe were at my direction and personally dictated by me. I have reviewed the chart and agree that the record accurately reflects my personal performance of the history, physical exam, medical decision making, and the department course for this patient. I have also personally directed, reviewed, and agree with the discharge instructions and disposition. Disposition/Present on Arrival - Present on Arrival Any Indicators Present on Arrival: No History of DVT/PE: No History of Uncontrolled Diabetes: No Urinary Catheter: No History of Decub. Ulcer: No History Surgical Site Infection Following: None - Disposition Have Diagnosis and Disposition been Completed?: Yes Diagnosis: CHF (congestive heart failure), Rapid atrial fibrillation Disposition Time: 18:21 Patient Plan: Admission Condition: FAIR
[2018-03-23] MEDS ORDERED: Metoprolol 1 mg/ml Inj IVP STA (17:26)
[2018-03-23 17:46] LABS: GRAN # 6.03 (1.4-6.5); GRAN % 81.8 % (50.0-68.0); HEMOGLOBIN 10.5 g/dL (14.0-18.0); LYMPH % 13.1 % (22.0-35.0); MEAN CELL VOLUME 65.2 fl (80.0-105.0); MEAN CORPUSCULAR HEMOGLOBIN 21.9 pg (25.0-35.0); MEAN CORPUSCULAR HGB CONC 33.5 g/dl (31.0-37.0); MONO # 0.4 (0.1-0.6); MONO % 5.1 % (1.0-6.0); PLATELET COUNT 152 10^3/uL (120.0-450.0); RED CELL DISTRIBUTION WIDTH 20.6 % (11.5-14.5); WHITE BLOOD COUNT 7.4 10^3/ul (4.5-11.0)
[2018-03-23 17:50] LABS: INR 1.5; PARTIAL THROMBOPLASTIN TIME 28.1 Seconds (25.1-36.5); PROTHROMBIN TIME 17.3 SECONDS (9.4-12.5)
[2018-03-23 18:05] LABS: BLOOD UREA NITROGEN 26 mg/dL (7-21); CALCIUM 8.6 mg/dL (8.4-10.5); GFR NON-AFRICAN AMERICAN > 60
[2018-03-23 18:16] LABS: B-TYPE NATRIURETIC PEPTIDE 4520 pg/mL (0-450); TROPONIN I 0.02 ng/mL
--- NOTE | 2018-03-23 23:17 | CARD ---
APPROVED REPORT Date of service: 03/23/2018 EKG Measurement Heart [id number] <Conclusion> Atrial fibrillation with rapid ventricular response with premature ventricular or aberrantly conducted complexes ST & T wave abnormality, consider inferolateral ischemia or digitalis effect Abnormal ECG
[2018-03-24 02:46] VITALS: BMI 34.4
--- NOTE | 2018-03-24 09:08 | RAD ---
Date of service: 03/23/2018 PROCEDURE: Radiographs of the pelvis. HISTORY: fall r/o fx COMPARISON: None. FINDINGS: Body habitus limits penetration. BONES: No definite fracture or dislocation appreciable at the bilateral hip joints and pelvic ring appears intact with degenerative sacroiliac and hip joints appreciated on a [id number] basis. The symphysis is intact. Bowel gas obscures upper iliac bones with the sacrum intact. Advanced degenerative disease seen at the L5-S1 intervertebral disc space. JOINTS: As above. OTHER FINDINGS: None. IMPRESSION: No definite acute fracture or dislocation identified. Body habitus limits penetration, diminishing sensitivity of this exam. Degenerative changes are noted at the sacroiliac and hip joints bilaterally as discussed above.
--- NOTE | 2018-03-24 09:17 | RAD ---
Date of service: 03/23/2018 PROCEDURE: CHEST RADIOGRAPH, 1 VIEW HISTORY: fall r/o fx COMPARISON: Portable chest 10/07/2017. FINDINGS: Limitations: Patient is significantly rotated toward the right. LUNGS: Examination does not appear dramatically changed in the interval. Chronic right pleural effusion or fibrosis present with none on the left. No pneumothorax bilaterally. No definite interval alveolar infiltrate. Questionable fibrotic changes inferior right lung zone. PLEURA: As above. CARDIOVASCULAR: Cardiac silhouette appears stable grossly but is difficult to evaluate due to rotation to the right. No pulmonary vascular derangement appreciable. OSSEOUS STRUCTURES: No significant abnormalities. VISUALIZED UPPER ABDOMEN: Normal. OTHER FINDINGS: None. IMPRESSION: Chronic right pleural effusion or fibrosis. Right basilar fibrosis also in question with cardiac silhouette stable. No definite infiltrate on acute basis in the interval.
--- NOTE | 2018-03-24 09:21 | RAD ---
Date of service: 03/23/2018 PROCEDURE: Left Knee Radiographs. HISTORY: Pain. COMPARISON: None. FINDINGS: BONES: No acute fracture or destructive bony lesion identified. JOINTS: No subluxation or dislocation degenerative joint space narrowing is quite severe at the medial femorotibial and lateral femorotibial compartments and moderate at the patellofemoral articulation. Osteophytes are gross at the medial femorotibial compartment and moderate at the femorotibial compartment. Urination is identified at the medial femorotibial compartment. JOINT EFFUSION: Small suprapatellar bursa effusion identified. OTHER FINDINGS: None. IMPRESSION: Advanced osteoarthritis. No acute fracture, dislocation or suspicious lytic or blastic change.
--- NOTE | 2018-03-24 09:22 | CON ---
Copied To: Jamari Lemus MD Attending MD: Jamari Lemus MD DATE: 03/24/2018 PULMONARY CONSULTATION HISTORY OF PRESENT ILLNESS: Mr. Sutton is a 78-year-old gentleman with pulmonary hypertension. He also has diabetes mellitus, hyperlipidemia, chronic obstructive pulmonary disease and congestive heart failure. The patient came to [facility] via the Emergency Room. He was found on the floor. Denied any loss of consciousness. Etiology of what happened is unclear. There is not a clear apparent fall from a missed step or weakness. Although the notes on the chart are unclear about this, there is no loss of consciousness. The patient is being evaluated on Telemetry for further evaluation. The patient has pulmonary hypertension. I am not sure where the patient gets his medication from, but he is on Revatio for the pulmonary hypertension. Further evaluation may or may not be necessary. Discussion with the patient's fact checker must be obtained. The past history has been reviewed. The patient has chronic obstructive pulmonary disease, pulmonary hypertension. He has type 2 diabetes mellitus. The family history is negative. The patient is a former smoker of one and half packs a day for many years. He has no occupational exposure. No travel history. He drinks socially. No occupational exposure. ALLERGIES: NONE. SOCIAL HISTORY: Former smoker 1 1/2 PPD FAMILY HISTORY: Negative for any inheritable diseases. HOME MEDICATIONS: Revatio, Eliquis, Lipitor, Digitek, Lasix, Glucophage and metoprolol. REVIEW OF SYSTEMS: Complete review of systems has been done. There is no additional finding other than that described previously. All other systems negative. PHYSICAL EXAMINATION: GENERAL: The patient is comfortable at this time, in no acute distress. VITAL SIGNS: Stable. Heart rate is 80; respiratory rate 16; blood pressure 130/70, on nasal cannula oxygen. HEENT: Normocephalic, atraumatic. Eyes: PERRL. EOMs full. Conjunctivae pink. Mouth moist. NECK: Supple. No JVD, no bruit. No jugular venous distention. CHEST: Clear to percussion and auscultation. CARDIOVASCULAR: Regular rhythm. S1, S2 without murmur, gallop or rub. ABDOMEN: Soft. Bowel sounds normoactive without mass, guarding, rebound, organomegaly. EXTREMITIES: Reveal no clubbing or cyanosis. There is trace edema of the lower extremities. NEUROLOGIC: Awake, alert, oriented. No focal findings. SKIN: Warm without rash or excoriation. LYMPHADENOPATHY: No lymph nodes are palpated in the supraclavicular notch in the cervical, inguinal or axillary areas. DATA: Chest x-ray shows pulmonary vascular congestion. EKG: Sinus rhythm, nonspecific ST-T wave changes. Blood test at this time showed the following: White count of 7000, hemoglobin of 10.5, hematocrit 31.3, eosinophils zero. Coagulation: PT 17.3. Chemistries: SMA normal. Carbon dioxide 34, BUN 26, creatinine 0.8, glucose 113. BNP 4520. IMPRESSION: 1. Pulmonary vascular congestion. 2. Pulmonary arterial hypertension. 3. Congestive heart failure. 4. Chronic obstructive pulmonary disease. 5. Syncope. The patient appears stable at this time. The patient needs further evaluation from Neurology and Cardiology regarding his heart rhythm and/or neurologic problems. Pulmonary hypertension can cause syncope as well as you are aware. The patient will require an echocardiogram to further evaluate his RVSP although based on studies, they are not known at this time. We will ask Dr. Joshi to obtain old records so that we can evaluate and see if the patient's Revatio is sufficient, which probably is not. If there is a cath data of the right side of the heart, perhaps further medication may be warranted. Once the patient is stabilized, we will discuss with Dr. Joshi and decide on the need for further intervention regarding the pulmonary hypertension for the meantime; however, the patient is getting his Revatio and we will try to get old records to further evaluate his status. Jamari Lemus MD ZITA
[2018-03-24] MEDS: Digoxin 125 mcg (0.125 mg) Tab PO SCH (09:40)
[2018-03-24] MEDS: Metoprolol Succinate 50 mg XL Tab PO SCH (09:40)
[2018-03-24] MEDS: Sildenafil 20 MG TAB PO SCH ×2 (09:40→17:21)
--- NOTE | 2018-03-24 16:28 | HP ---
Copied To: Poli Joshi DO Attending MD: Poli Joshi DO HISTORY OF PRESENT ILLNESS: I know Loy for a few years now. He has been trying to have me see him over the past six months, we have not connected. He is a 78-year-old -[place] man who presents with falling secondary to leg weakness. He was found on the floor at home. No trauma, no loss of consciousness. He bilateral lower extremities felt heavy. He could not walk. Did not lose consciousness. He has extreme edema, also dyspnea on exertion. He ran out of his medications three days ago. He has a past medical history of diabetes, hypertension, high cholesterol, COPD, CHF, this kind of came on suddenly after he has been on his medications, water pills for three days. He has cataracts, diabetes, COPD. He had right knee surgery, hypertension, diabetes in the family. He is a former smoker, still drinks socially. No substance abuse. NO KNOWN DRUG ALLERGIES. On Eliquis, Lipitor, digoxin, Lasix, he has ran out of Glucophage and Toprol. REVIEW OF SYSTEMS: No change in vision or hearing. No sore throat. No fever or night sweats. No cough or congestion, but he does have dyspnea on exertion. He does have a lot of swelling in his lower extremities. Very weak lower extremities, hard for him to walk, could not get up after he fell from the weak extremities. No nausea, vomiting, constipation, diarrhea or abdominal pain. No problems with urinating, but decrease in urination. No headache or dizziness. PHYSICAL EXAMINATION: VITAL SIGNS: He has 98 temperature, 122 pulse, 20 respiratory rate, 129/80 blood pressure, 90% O2 sat. HEENT: Head is atraumatic, normocephalic. He is well appearing. Alert and oriented x3 at rest. Extraocular muscles are intact. Pupils are equal and reactive to light. Throat is moist. NECK: Supple. HEART: Regular rate. Normal S1, S2. LUNGS: Decreased breath sounds. Poor inspiration, but no wheezes, rhonchi or rales. ABDOMEN: Soft, nontender. Positive bowel sounds. No guarding. No rebound. No CVA tenderness. EXTREMITIES: +4/4 pitting edema bilaterally all the way up to his knees, maybe 10 to 15 pounds of fluid in each leg. NEUROLOGIC: GCS is 15. Cranial nerves II through XII grossly intact. Normal speech. Alert and oriented x3. SKIN: Warm and dry. No apparent ulcers or rashes. LYMPHATICS: Thyroid midline. No palpable or appreciable lymphadenopathy. LABORATORY DATA: He had a 7.4 white count, 10.5 hemoglobin, 31.3 hematocrit and 152 platelets. His sodium is 148, potassium is 3.8, chloride 104, carbon-dioxide 34, anion gap is 14. BUN is 26. Creatinine 0.8. GFR is 60. Sugar is 120. calcium is 8.6. Magnesium 2.2, lactate dehydrogenase is 493, total creatinine kinase is 176. Troponin I is 0.02, BNP is quite high at 4520. His INR is 1.5. Chest x-ray is pending. IMPRESSION: He is in clinical severe congestive heart failure and is on Lasix 40 intravenous b.i.d. He had a consult consult with Pulmonary and Cardiology. He will have physical therapy, out of bed to chair, he will have oxygen, he will have a diet, and he might need YARIEL for weakness. He is here for acute congestive heart failure. Poli Joshi DO MTDKendall
--- NOTE | 2018-03-24 18:44 | CARD ---
APPROVED REPORT Date of service: 03/24/2018 EXAM: Two-dimensional and M-mode echocardiogram with Doppler and color Doppler. INDICATION R/O PAH....RVSP 2D DIMENSIONS Left Atrium (2D)5.3 (1.6-4.0cm)IVSd1.2 (0.7-1.1cm) LVDd5.6 (3.9-5.9cm)PWd1.2 (0.7-1.1cm) LVDs4.5 (2.5-4.0cm)FS (%) 18.6 % LVEF (%)38.1 (>50%) M-Mode DIMENSIONS Aortic Root3.70 (2.2-3.7cm)Aortic Cusp Exc.2.00 (1.5-2.0cm) Aortic Valve AoV Peak Svulyfez105.0cm/Soraya Peak GR.8mmHgAI P 1/2 [id number] Mitral Valve E/A ratio0.0 TDI E/Lateral E'0.0E/Medial E'0.0 Pulmonary Valve PV Peak Ryxstdad71.8cm/sPV Peak Grad.1mmHg Tricuspid Valve TR Peak [id number]/sRAP [id number] Peak Gr.49mmHg [id number] LEFT VENTRICLE The left ventricle is normal size. There is borderline concentric left ventricular hypertrophy. The systolic function is moderately impaired. There is global hypokinesis of the left ventricle. No left ventricle thrombus noted on this study. RIGHT VENTRICLE The right ventricle is normal size. There is normal right ventricular wall thickness. The right ventricular systolic function is normal. ATRIA The left atrium is moderately dilated. The right atrium is moderately dilated. AORTIC VALVE The aortic valve is mildly thickened. There is severe aortic regurgitation. There is no aortic valvular stenosis. MITRAL VALVE The mitral valve is mildly thickened. Mitral regurgitation is moderate to severe. There is no mitral valve stenosis. TRICUSPID VALVE The tricuspid valve is normal in structure. There is moderate tricuspid regurgitation. There is severe pulmonary hypertension. GREAT VESSELS The aortic root is borderline dilated The IVC collapses <50% with inspiration. The IVC is dilated. PERICARDIAL EFFUSION There is no pericardial effusion. <Conclusion> The left ventricle is normal size. There is borderline concentric left ventricular hypertrophy. The systolic function is moderately impaired. ( a new finding ) There is global hypokinesis of the left ventricle. There is severe aortic regurgitation. Mitral regurgitation is moderate to severe. There is moderate tricuspid regurgitation. There is severe pulmonary hypertension.
--- NOTE | 2018-03-25 01:44 | CP.PCM.PN ---
Subjective - Subjective Subjective: Patient progress note Objective - Vital Signs/Intake and Output Vital Signs (last 24 hours): Temp Pulse Resp BP Pulse Ox 97.8 F 83 18 107/64 97 03/24/18 18:00 03/24/18 18:00 03/24/18 18:00 03/24/18 18:00 03/24/18 18:00 Intake and Output: 03/24/18 03/25/18 18:59 06:59 Intake Total 1380 Output Total 950 Balance 430 - Medications Medications: Current Medications Apixaban (Eliquis) 5 mg PO BID [facility] PRN Reason: Protocol Last Admin: 03/24/18 17:21 Dose: 5 mg Atorvastatin Calcium (Lipitor) 20 mg PO DAILY [facility] Last Admin: 03/24/18 09:40 Dose: 20 mg Digoxin (Digoxin) 0.125 mg PO DAILY [facility] Last Admin: 03/24/18 09:40 Dose: 0.125 mg Furosemide (Lasix) 40 mg IVP BID [facility] Last Admin: 03/24/18 17:22 Dose: 40 mg Metformin HCl (Glucophage) 500 mg PO BID [facility] Last Admin: 03/24/18 17:21 Dose: 500 mg Metoprolol Succinate (Toprol Xl) 50 mg PO DAILY [facility] Last Admin: 03/24/18 09:40 Dose: 50 mg Sildenafil Citrate (Revatio) 20 mg PO BID [facility] Last Admin: 03/24/18 17:21 Dose: 20 mg - Labs Labs: PT 17.3 SECONDS (9.4-12.5) H 03/23/18 17:30 INR 1.50 03/23/18 17:30 APTT 28.1 Seconds (25.1-36.5) 03/23/18 17:30 Assessment and Plan - Assessment and Plan (Free Text) Plan: Heart Pause of 2.2 seconds. Patient is asymptomatic. Cardiology consult, K and Mg levels are within normal limits
[2018-03-25 06:46] LABS: MEAN CELL VOLUME 66.8 fl (80.0-105.0); MEAN CORPUSCULAR HEMOGLOBIN 21.6 pg (25.0-35.0); MEAN CORPUSCULAR HGB CONC 32.3 g/dl (31.0-37.0); PLATELET COUNT 149 10^3/uL (120.0-450.0); RBC 4.64 10^6/uL (3.5-6.1); RED CELL DISTRIBUTION WIDTH 20.4 % (11.5-14.5)
[2018-03-25 07:19] LABS: ALB/GLOB RATIO 0.9 (1.1-1.8); ALBUMIN 2.8 g/dL (3.0-4.8); ALT/SGPT 31 U/L (7-56); AST/SGOT 44 U/L (17-59); BLOOD UREA NITROGEN 25 mg/dL (7-21); CALCIUM 8.3 mg/dL (8.4-10.5); GFR NON-AFRICAN AMERICAN > 60
--- NOTE | 2018-03-25 09:45 | PN ---
Copied To: Jas Delong MD Attending MD: Jas Delong MD DATE: 03/25/2018 PULMONARY PROGRESS NOTE SUBJECTIVE: The patient was seen and examined at bedside. He is complaining of shortness of breath upon walking, but no shortness of breath at rest. He is on Revatio 20 mg twice a day. PHYSICAL EXAMINATION: VITAL SIGNS: Temperature is 98.9, pulse 88, respirations 18, pulse oximetry is 99 on nasal cannula, blood pressure is 100/66. HEENT: Head normocephalic and atraumatic. NECK: Supple with no jugular vein distention. CARDIOVASCULAR: S1, S2. No S3, regular. PULMONARY: A few basilar rhonchi. No wheezing. GI: Soft, nontender. No organomegaly. EXTREMITIES: 1+ pedal edema. SKIN: No acute skin rash. No cyanosis. NEUROLOGIC: Limited at the present time. LABORATORY DATA: I have reviewed his laboratory data. Today, his sodium 143, potassium 5.3, WBC is 7, hemoglobin of 10. ASSESSMENT: 1. Pulmonary hypertension. 2. Exertional dyspnea. 3. Chronic obstructive pulmonary disease, which is stable. 4. Congestive heart failure. 5. Mild anemia. PLAN: I have discussed with the patient and reviewed Dr. Lemus's notes. The patient should have another echocardiogram to evaluate right ventricular systolic pressure. If Revatio alone is not sufficient, then additional medications in the form of Opsumit should be offered that would be 10 mg once a day. In the interim, we will continue with present intervention and follow closely. Jas Delong MD
[2018-03-25] MEDS: Sildenafil 20 MG TAB PO SCH ×2 (09:58→17:44)
[2018-03-25] MEDS: Metoprolol Succinate 50 mg XL Tab PO SCH (09:58)
[2018-03-25] MEDS: Digoxin 125 mcg (0.125 mg) Tab PO SCH (10:00)
[2018-03-25] MEDS: DOBUTamine 500mg/250ml D5W 500 MG/250 ML BAG IV PRN (10:46)
--- NOTE | 2018-03-25 14:06 | PN ---
Copied To: Poli Joshi DO Attending MD: Poli Joshi DO DATE: 03/25/2018 SUBJECTIVE: I saw Loy this morning. He is urinating a fair amount. He is still very swollen. I am waiting for Cardiology to see him. I called in Cardiology again. Pulmonary saw him and requested Neurology. I will call Neurology in as per Pulmonary. He is eating okay. He is still a little short of breath. PHYSICAL EXAMINATION: VITAL SIGNS: He has 98.9 temperature, 87 pulse, 100/66 blood pressure, 18 respiratory rate, 99% O2 sat on nasal cannula. HEENT: Head is atraumatic, normocephalic. HEART: Irregular rate. LUNGS: Decreased breath sounds, marked rales. ABDOMEN: Soft, obese. EXTREMITIES: Still +3/4 pitting edema even on Lasix 40 b.i.d. He might need Primacor or dobutamine drip. I will see what Cardiology says if they come in. So, digoxin, Eliquis, Glucophage, Lasix, Lipitor, Revatio and Toprol. He has 143 sodium, potassium 5.3, BUN 25, creatinine 0.7, GFR is greater than 60, sugar is 92, calcium is 8.3, total bili is 0.7, AST is 44, ALT is 31, alk phos 106, total protein is 6. White count is 7, hemoglobin 10, hematocrit 31, platelets of 149. INR is 150. He was seen by the senior ruby developer. He has normal left ventricular size, borderline contracted left ventricular hypertrophy. He was seen by Dr. Alejandro Boudreaux. I am assuming this is a rapid response or some kind of house doctor. There is a heart pause of 2.2 seconds. The patient is asymptomatic. I did not get a phone call on that. We will see what the agriculture consultant has to say this morning. Hopefully, they will show up. I will continue to do diuresis. Poli Joshi DO
--- NOTE | 2018-03-25 17:21 | CON ---
Copied To: Jose Vidales MD Attending MD: Jose Vidales MD DATE: 03/25/2018 NEUROLOGY CONSULT CHIEF COMPLAINT: Questionable syncopal event, loss of consciousness. HISTORY OF PRESENT ILLNESS: This is a 78-year-old man with past medical history of AFib, on Eliquis; type 2 diabetes mellitus; hypertension; CHF; severe pulmonary hypertension, on Revatio with an EF of 38%; who came in because he fell on the floor secondary to leg weakness. He was found on the floor, but no trauma, no loss of consciousness. He had felt like his bilateral lower extremities are heavy and has extreme edema and dyspnea on exertion. Currently, he has been evaluated by Pulmonary and mentioned that he has severe pulmonary hypertension and will have another echocardiogram to assess his ejection fraction and he will need physical therapy. He does have features of diabetic peripheral neuropathy also on neuro examination. He did have a rapid heart rate when he came in with his AFib. He is on Eliquis for stroke prevention. PAST MEDICAL HISTORY: As above. SOCIAL HISTORY: No illicit drug use, smoking or EtOH abuse. ALLERGIES: NO KNOWN DRUG ALLERGIES. MEDICATIONS: Reviewed by nurses' reconciliation sheet. FAMILY HISTORY: Noncontributory. LABORATORY DATA: Sodium is 143, potassium 5.3, chloride 103, carbon dioxide of 31, BUN of 25, creatinine 0.7, random glucose of 92, A1c is 5.9 indicating well-controlled diabetes. PHYSICAL EXAMINATION: VITAL SIGNS: Temperature 97.2, pulse rate of 91, blood pressure 109/56, respiratory rate of 18. GENERAL: The patient is sitting up in bed, in no acute distress. HEENT: Atraumatic, normocephalic. PERRLA. NECK: Supple. No JVD, no adenopathy noted. HEART: S1, S2. Irregular rate and rhythm. No murmurs, rubs or gallops. LUNGS: Decreased breath sounds bilaterally. ABDOMEN: Soft, nontender and nondistended. Bowel sounds are present. EXTREMITIES: There is bilateral lower extremity edema. Peripheral pulses 2+ felt bilaterally. NEUROLOGIC: The patient is alert and oriented to person, place, month and year. Speech is fluent without any errors. Cranial nerves II through XII intact. Motor exam: Moves all extremities equally. Toes are downgoing bilaterally. Sensory exam: Decreased light touch and pinprick up to the calves bilaterally. Decreased vibration of the toes. DTRs are 2+ throughout, 1 at both knees and absent at the ankles. Coordination: [id number] intact. No dysmetria noted. ASSESSMENT AND PLAN: This is a 78-year-old -[place] man with past medical history of atrial fibrillation, on Eliquis; type 2 diabetes mellitus; hypertension; congestive heart failure; severe pulmonary hypertension, on Revatio. Came in for generalized leg weakness, felt like his legs were heavy and had fallen on the floor at home, but denies any loss of consciousness. He could be very fatigued and deconditioned. His heaviness in the lower extremity is likely secondary to severe pulmonary hypertension causing low systolic and diastolic blood pressures seen throughout his hospital stay. In addition, he is deconditioned from his underlying cardiac and pulmonary issue, superimposed underlying diabetic peripheral neuropathy. At this time, I would recommend, 1. He needs cardiac rehabilitation, reconditioning and some physical therapy and subacute rehabilitation. 2. Continue with his Eliquis 2.5 mg p.o. b.i.d. for his underlying atrial fibrillation and to prevent from strokes. 3. Continue with cable tool driller and pulmonary followup in regards to his severe congestive heart failure and severe pulmonary hypertension and continue on Revatio 10 mg p.o. daily. 4. Echocardiogram. 5. Carotid Doppler and physical therapy. Thank you for this consult. Jose Vidales MD
[2018-03-26] MEDS: DOBUTamine 500mg/250ml D5W 500 MG/250 ML BAG IV PRN (02:47)
[2018-03-26 08:05] LABS: HEMOGLOBIN 9.3 g/dL (14.0-18.0); MEAN CELL VOLUME 66.8 fl (80.0-105.0); MEAN CORPUSCULAR HEMOGLOBIN 21.9 pg (25.0-35.0); MEAN CORPUSCULAR HGB CONC 32.7 g/dl (31.0-37.0); MEAN PLATELET VOLUME 9.7 fl (7.0-11.0); RBC 4.25 10^6/uL (3.5-6.1); RED CELL DISTRIBUTION WIDTH 20.3 % (11.5-14.5); WHITE BLOOD COUNT 6.1 10^3/ul (4.5-11.0)
[2018-03-26 08:16] LABS: ALB/GLOB RATIO 0.9 (1.1-1.8); ALBUMIN 2.7 g/dL (3.0-4.8); ALT/SGPT 40 U/L (7-56); AST/SGOT 40 U/L (17-59); BLOOD UREA NITROGEN 20 mg/dL (7-21); CALCIUM 8.1 mg/dL (8.4-10.5); GFR NON-AFRICAN AMERICAN > 60
[2018-03-26 08:17] LABS: B-TYPE NATRIURETIC PEPTIDE 4220 pg/mL (0-450)
[2018-03-26] MEDS: Metoprolol Succinate 50 mg XL Tab PO SCH (10:23)
[2018-03-26] MEDS: Sildenafil 20 MG TAB PO SCH ×2 (10:24→17:51)
[2018-03-26] MEDS: Digoxin 125 mcg (0.125 mg) Tab PO SCH (10:30)
--- NOTE | 2018-03-26 11:19 | PN ---
Copied To: Jamari Lemus MD Attending MD: Jamari Lemus MD DATE: 03/26/2018 PULMONARY PROGRESS NOTE SUBJECTIVE: The patient is doing quite well. He has no respiratory distress at this time at rest. He has not been evaluated during ambulation. He remains on Revatio 20 mg b.i.d. for pulmonary hypertension. PHYSICAL EXAMINATION: VITAL SIGNS: Remain stable. HEENT: Without change. NECK: Supple. No JVD, no bruit. CARDIOVASCULAR: Regular rhythm. S1, S2 without murmur. CHEST: Minimal rhonchi. No wheezing appreciated. ABDOMEN: Soft. Bowel sounds normoactive. : Within normal limits EXTREMITIES: Reveal trace edema. SKIN: No rash or excoriations. LABORATORY STUDIES: An echocardiogram has been reviewed. The RVSP is significantly elevated. It is 59 mmHg. Unfortunately, we cannot compare with any basic findings. ASSESSMENT: 1. Pulmonary hypertension. 2. Exertional dyspnea. 3. Chronic obstructive pulmonary disease. 4. Congestive heart failure. PLAN: We will need to get the records from the patient, from the individual who started the patient on Revatio. If there is another physician taking care of his pulmonary hypertension, then, he must return to that physician for reevaluation. If he prefers to stay with our group in [place], then old records are essential. We need to see if the RVSP is changing. If his symptoms are worse and if the RVSP is increased, right heart catheterization will be required. The patient may need additional medications for pulmonary hypertension. Revatio is only a first-line drug and despite the patient's age, aggressive therapy is in order to decrease his symptoms and prevent further deterioration. We will stand by and await decisions regarding Mr. Sutton's continued care and follow closely with you. Thank you for the opportunity to care for this annmarie patient. Jamari Lemus MD [facility]TD[facility]
--- NOTE | 2018-03-26 12:49 | PN ---
Copied To: Tony Vaughan MD Attending MD: Tony Vaughan MD DATE: 03/26/2018 SUBJECTIVE: The patient's breathing is improved on IV ionotropic therapy. PHYSICAL EXAMINATION: VITAL SIGNS: Blood pressure is 137/49, heart rate is 100. NECK: Negative JVD. LUNGS: Without rales. HEART: S1, S2. EXTREMITIES: Decreasing edema. LABORATORY DATA: Hemoglobin is 9.3. Chemistries, BUN and creatinine is 20 and 0.7. IMPRESSION: 1. Severe pulmonary hypertension. 2. Dyspnea. 3. Pedal edema. 4. Decreasing left ventricular function. 5. Aortic insufficiency. Given these findings, we will continue his IV dobutamine. We will begin mobilizing the patient with out of bed to chair and physical therapy has been ordered. Tony Vaughan MD
--- NOTE | 2018-03-26 13:08 | RAD ---
Date of service: 03/26/2018 HISTORY: bradycardia COMPARISON: 03/23/2018. FINDINGS: LUNGS: There is mild pulmonary venous congestion. There is patchy airspace disease in the right upper and lower lobes. PLEURA: Small right pleural effusion, no pneumothorax apparent. CARDIOVASCULAR: Moderate cardiomegaly. OSSEOUS STRUCTURES: No significant abnormalities. VISUALIZED UPPER ABDOMEN: Normal. OTHER FINDINGS: None. IMPRESSION: Moderate cardiomegaly, pulmonary venous congestion and small right pleural effusion. Patchy airspace disease in the right upper and lower lobes may represent atelectasis or pneumonia. Follow-up is advised.
--- NOTE | 2018-03-26 13:17 | PCM.RRT ---
Addendum entered and electronically signed by Jackson Argueta DO 03/26/18 13: 31: Will also obtain TSH and Digoxin level tomorrow morning as per cardiology request. Original Note: <Jackson Argueta - Last Filed: 03/26/18 13:12> TELEPHONE APPOINTMENT CLERK Nurse Assessment - Situation Date: 03/26/18 Time TELEPHONE APPOINTMENT CLERK was called: 12:32 TELEPHONE APPOINTMENT CLERK Responder Arrival Time: 12:33 TELEPHONE APPOINTMENT CLERK Location:: [address] [place] [address] Room Number: 268-1 TELEPHONE APPOINTMENT CLERK Reason for Call: Bradycardia, Change in Mental Status TELEPHONE APPOINTMENT CLERK Called By: RN - IV IV Inserted during TELEPHONE APPOINTMENT CLERK?: No - Respiratory Oxygen Delivery Method: Nasal Cannula @L/min Oxygen Flow Rate: 3 Received Nebulizer Treatments:: No Was the Patient Ventilated with Bag/Mask 100% O2?: No Secretions Suctioned?: No Was the Patient Intubated?: No Was the Patient Placed on a Ventilator?: No - Medication Medications Administered During TELEPHONE APPOINTMENT CLERK: dobutamine drip decreased to 2.5 micorgrams /minute - Diagnostic Test Ordered EKG: Yes Chest X-Ray: Yes CT Scan: No Other Diagnostic Test Ordered: fingerstick 103 - Stat Labs Ordered TELEPHONE APPOINTMENT CLERK Stat Labs Ordered: BMP, TROPONIN TELEPHONE APPOINTMENT CLERK Other Labs Ordered: magnesium, phosphorus CPR started during TELEPHONE APPOINTMENT CLERK?: No - Vital Signs Vital Sign: Rapid Response Vital Sign Blood Pressure 102/58 Pulse Rate 48 Respiratory Rate 18 Temperature 97.1 F Oxygen Saturation 98 - Time TELEPHONE APPOINTMENT CLERK Ended Time TELEPHONE APPOINTMENT CLERK Ended: 12:48 - Vital Signs at end of TELEPHONE APPOINTMENT CLERK Vital Signs at end of TELEPHONE APPOINTMENT CLERK: Rapid Response End Vital Sign Blood Pressure 117/69 Pulse Rate 94 Respiratory Rate 18 Temperature 98 F I.Reason for TELEPHONE APPOINTMENT CLERK - A) Acute Change in Patient: Subjective: TELEPHONE APPOINTMENT CLERK called at 1232 for bradycardia. Patient's heart rate dropped to the 40's and patient complained of chest discomfort. Upon arrival, patient was AAOx3 and stated his chest discomfort had stopped. He reports eating steak right before this episode, which usually gives him similar chest discomfort. Vitals were stable, including heart rate in the 70's. Patient denies chest pain, shortness of breath, nausea, vomiting, fever, numbness, tingling, changes in vision. - Neurological Status (Select all that apply): Alert, Oriented, Verbal, Follows Commands - Respiratory Oxygen Delivery Method: Nasal Cannula @L/min Oxygen Flow Rate: 3 - Constitutional Appears: Non-toxic, No Acute Distress - Head Head Exam: ATRAUMATIC, NORMAL INSPECTION, NORMOCEPHALIC - Eyes Eye Exam: EOMI, Normal appearance - Respiratory Exam Respiratory Exam: Clear to Ausculation Bilateral, NORMAL BREATHING PATTERN - Cardiovascular Exam Cardiovascular Exam: Irregular Rhythm, +S1, +S2 Additional comments: No chest wall tenderness - GI/Abdominal Exam GI & Abdominal Exam: Soft, Normal Bowel Sounds. absent: Tenderness - Neurological Exam Neurological Exam: Alert, Awake, CN II-XII Intact, Oriented x3 Additional exam: Lower extremity muscle strength 2/5 b/l, unchanged according to patient - Extremities Exam Extremities Exam: Pedal Edema Additional comments: +1 pitting edema b/l Plan - Assessment of Findings&Treatment Plan 78 year old male with past medical history of CHF with EF of 35%, A-fib on eliquis, DM2, and severe pulmonary hypertension presents with asymptomatic bradycardia. Will order labs, EKG, and CXR and follow up with results. Case discussed with Dr. Joshi who agrees with plan. Call placed to commercial energy auditor. Plan: 1. Magnesium, Phosphorus, Troponin 2. EKG 3. Chest X-ray 4. Case discussed with Primary care attending Ellie PGY-3 <Theresa Hernandez R - Last Filed: 03/26/18 17:09> TELEPHONE APPOINTMENT CLERK Nurse Assessment - Vital Signs Vital Sign: Rapid Response Vital Sign Blood Pressure 102/58 Pulse Rate 48 Respiratory Rate 18 Temperature 97.1 F Oxygen Saturation 98 - Vital Signs at end of TELEPHONE APPOINTMENT CLERK Vital Signs at end of TELEPHONE APPOINTMENT CLERK: Rapid Response End Vital Sign Blood Pressure 117/69 Pulse Rate 94 Respiratory Rate 18 Temperature 98 F Attending/Attestation - Attestation I have personally seen and examined this patient.: Yes I have fully participated in the care of the patient.: Yes I have reviewed all pertinent clinical information, including history, physical exam and plan: Yes Notes (Text): Patient seen and examined by me at 12:35PM. Case discussed with resident. Agree with above with following additions and corrections. Rapid response called at 12:32 for bradycardia and lethargy. On arrival, patient AAOx3. Bradycardia resolved. Patient back to baseline. EKG was ordered and reviewed. No new changes were seen. Troponin was ordered and within normal limits. Magnesium was low and was repleted. Case was discussed with PMD and cardiology. All symptoms resolved. Heart rate was in the 70s-90s. BP was 117/69. Physical exam: Gen: Awake and alert sitting up in bed in no acute distress Cardiovascular: Normal S1 and S2. Positive sysolic murmur. No rubs or gallops appreciated. Pulmonary: Normal respiratory effort. No rhonchi, rales or wheezing appreciated. Gastrointestinal: Soft, nontender, nondistended, positive bowel sounds all 4 quadrants, no guarding. Musculoskeletal: Positive bilateral lower extremity pitting edema and chronic venous stasis color changes Central nervous system: AAO x 3.
[2018-03-26 13:39] LABS: TROPONIN I < 0.01 ng/mL
[2018-03-26] MEDS ORDERED: Magnesium Sulfate 2 gm/50 ml 2 GM/50 ML BAG IVPB ONE (13:40)
--- NOTE | 2018-03-26 13:50 | PN ---
Copied To: Poli Joshi DO Attending MD: Poli Joshi DO DATE: 03/26/2018 SUBJECTIVE: I saw Loy resting comfortably in bed. He is eating his lunch. He did not really diurese that well with the Lasix 40 IV and that is why Dr. Vaughan put him on the dobutamine. I am hoping that helps him diurese better. He has had no chest pain or shortness of breath. He is quite weak and his legs are very swollen. PHYSICAL EXAMINATION: VITAL SIGNS: He has a 97.1 temp, 80 pulse, 102/58 blood pressure, 18 respiratory rate, 97% O2 sat on nasal cannula. HEENT: His head is atraumatic, normocephalic. Throat is moist. NECK: Supple. HEART: Regular rate. LUNGS: Decreased breath sounds, but clear. ABDOMEN: Soft, obese, nontender. EXTREMITIES: Still 2-3/4 pitting edema bilaterally, but when he came in, it was 4+ pitting edema. MEDICATIONS: He is currently on digoxin, dobutamine drip, Eliquis, Glucophage, Lasix, Lipitor, Revatio and Toprol-XL. LABORATORY DATA: He has a 141 sodium, potassium 3.9, BUN is 20, creatinine 0.7, GFR is greater than 60, sugar is 103, calcium is 8.1, total bili is 0.6, AST is 40, ALT is 40, alk phos 93. His BNP only dropped to 4220, that is why he is now on the dobutamine drip. He has a 6.1 white count, 9.3 hemoglobin, 28.4 hematocrit with 148 platelets. ASSESSMENT AND PLAN: He is being seen by Neurology, Pulmonary. Cardiology did start him on dobutamine, but I do not have a note from Cardiology yet. Also, there is a carotid ultrasound pending. We will check his labs tomorrow. Need him out of bed to chair, wants physical therapy. I think he is getting weak. He might go to subacute rehabilitation and see what they recommend. We will continue aggressive treatment and care for congestive heart failure, pulmonary hypertension and he is getting weak and possibly he will need physical therapy before he goes home. Poli Joshi DO
--- NOTE | 2018-03-26 14:24 | CARD ---
APPROVED REPORT Date of service: 03/26/2018 EKG Measurement Heart [id number] <Conclusion> Atrial fibrillation with premature ventricular or aberrantly conducted complexes T wave abnormality, consider lateral ischemia or digitalis effect Prolonged QT Abnormal ECG
[2018-03-27 07:36] LABS: HEMOGLOBIN 9.5 g/dL (14.0-18.0); MEAN CELL VOLUME 66.6 fl (80.0-105.0); MEAN CORPUSCULAR HEMOGLOBIN 21.7 pg (25.0-35.0); MEAN CORPUSCULAR HGB CONC 32.6 g/dl (31.0-37.0); MEAN PLATELET VOLUME 10.1 fl (7.0-11.0); RBC 4.37 10^6/uL (3.5-6.1); RED CELL DISTRIBUTION WIDTH 20.2 % (11.5-14.5); WHITE BLOOD COUNT 5.4 10^3/ul (4.5-11.0)
[2018-03-27 08:39] LABS: ALB/GLOB RATIO 0.9 (1.1-1.8); ALBUMIN 2.8 g/dL (3.0-4.8); ALT/SGPT 40 U/L (7-56); AST/SGOT 38 U/L (17-59); BLOOD UREA NITROGEN 15 mg/dL (7-21); CALCIUM 7.9 mg/dL (8.4-10.5); GFR NON-AFRICAN AMERICAN > 60
[2018-03-27] MEDS: Sildenafil 20 MG TAB PO SCH ×2 (09:58→17:07)
[2018-03-27] MEDS: Metoprolol Succinate 25 mg XL Tab PO SCH (11:05)
[2018-03-27] MEDS: DOBUTamine 500mg/250ml D5W 500 MG/250 ML BAG IV PRN (12:20)
[2018-03-27] MEDS: Digoxin 125 mcg (0.125 mg) Tab PO SCH (14:25)
--- NOTE | 2018-03-27 14:31 | PN ---
Copied To: Poli Joshi DO Attending MD: Poli Joshi DO DATE: 03/27/2018 SUBJECTIVE: I saw him resting comfortably in bed. He ate his breakfast. He tells me he has not been out of bed since he has been in the hospital. I have been trying to get him out of bed to a chair. He is on IV dobutamine, digoxin, Eliquis, metformin, Lasix IV, Lipitor, magnesium, Revatio. He is having bad CHF with edema. He is also quite weak. He had a rapid response with a low bradycardia. We stopped the metoprolol and the digoxin, however, he is back on them with a lower dose. He is comfortable. PHYSICAL EXAMINATION: VITAL SIGNS: He has a 98.3 temperature, 95 pulse, down to 75 pulse, 125/56 blood pressure, 20 respiratory rate, 99% O2 sat on nasal cannula, GENERAL: Alert and oriented x3, talking. He is telling me his problems. He has a problem with the bed. It is saggy in the middle. He wants a new bed. He also wants to get out of bed to chair each day. He feels better with breathing. No chest pain. No shortness of breath. His legs are getting less swollen. HEENT: His head is atraumatic, normocephalic. Throat is moist. NECK: Supple. HEART: Regular rate. LUNGS: Decreased breath sounds, but clear to auscultation. No wheezes, no rhonchi. No rales. ABDOMEN: Soft, nontender. Positive bowel sounds. EXTREMITIES: +1-+2/4 pitting edema, definitely improving from 4/4 pitting edema when he came in. I am hoping this will continue. LABORATORY DATA: He has a 5.4 white count, 9.5 hemoglobin, 29.1 hematocrit with 178 platelets. He has 141 sodium, potassium 4.6, BUN 15, creatinine 0.6, GFR is greater than 60, sugar is 90, calcium is 7.9, magnesium is 1.6, total bili is 0.5, AST is 38, ALT is 40, alkaline phosphatase 96 and rapid response. His troponin I was less than 0.01. Total protein is 5.9. TSH is 2.79. He is back on his digoxin and his metoprolol, but at lower dosaging. He is being followed by Cardiology. He had a chest x-ray which showed moderate cardiomegaly. pulmonary venous congestion, small right pleural effusion, patchy air space disease, right upper and lower lobe, may represent atelectasis or pneumonia. I will get Pulmonary to come in and see what they think about. I am not starting him on any antibiotics. I think it is more of a chronic obstructive pulmonary disease, congestive heart failure, exertional dyspnea picture. I will continue aggressive treatment and care, get him out of bed to chair, change his hospital bed to a different one. He is [facility] to [facility]. I called in case management to help us and hopefully get him off dobutamine in the next 24-48 hours. He is here for acute congestive heart failure, pulmonary hypertension, weakness, bradycardia. Poli Joshi DO
--- NOTE | 2018-03-27 18:15 | PN ---
Copied To: Wayne Danielle MD Attending MD: Wayne Danielle MD DATE: 03/27/2018 LOCATION: The patient in room 268, bed 1. COVERING FOR: Tony Vaughan MD, I am dictating this note on his behalf. REASON FOR THIS PROGRESS NOTE: The patient had an episode of bradycardia yesterday. HISTORY OF PRESENT ILLNESS: The patient has history of severe pulmonary hypertension, dyspnea, pedal edema, decreased left ventricular systolic function, aortic insufficiency, atrial fibrillation, had an episode of bradycardia yesterday, heart rate went down to beats. The patient denied any dizziness or any syncope. The patient described some atypical chest discomfort. He says he gets this type of discomfort when he ate stakes and then he gets this discomfort. The patient is now completely asymptomatic with regard to cardiac arrhythmia. Denies any palpitation. PHYSICAL EXAMINATION VITAL SIGNS: Blood pressure 125/56, respirations 18, and pulse 102, earlier was 110. The patient is afebrile. HEENT: Head is normocephalic. Eyes: Pupils normal. Conjunctivae slightly pale. NECK: JVP low. Carotids equal. THORAX: AP diameter normal. LUNGS: No significant rales. CARDIOVASCULAR: S1 and S2. Irregular rhythm due to atrial fibrillation. EXTREMITIES: The patient still has edema on the lower extremities. LABORATORY DATA: Shows WBC 5.4, hemoglobin 9.5, hematocrit 29.1, platelets 178. Sodium 141, potassium 4.6, BUN 15, creatinine 0.6, random sugar 97. TSH 2.79, digoxin level 0.6. DIAGNOSES: Short run of bradycardia, atrial fibrillation, severe pulmonary hypertension, decreased left ventricular function, aortic insufficiency. PLAN: We will cut metoprolol succinate from 50 mg to 25 mg daily and we will continue digoxin 0.125 daily. I will continue to monitor the patient for any arrhythmia. From tomorrow morning, Dr. Vaughan will follow the patient. The patient on dobutamine drip also and Eliquis 5 mg b.i.d., metformin 500 b.i.d., furosemide 40 IV b.i.d., and Lipitor 20 daily. Wayne Danielle MD
[2018-03-28] MEDS: DOBUTamine 500mg/250ml D5W 500 MG/250 ML BAG IV PRN (06:13)
--- NOTE | 2018-03-28 07:19 | PN ---
Copied To: Poli Joshi DO Attending MD: Poli Joshi DO DATE: 03/28/2018 SUBJECTIVE: I saw Loy resting comfortably in bed. He was out of bed to chair yesterday, he liked it a lot so much. He did not want to go back to bed last night, but he slept well. He is eating well. He is in good spirits. He understands that he needs to have physical therapy before he can go home. MEDICATIONS: He is on digoxin, dobutamine, Eliquis, Glucophage, Lasix, Lipitor, Revatio and Toprol. PHYSICAL EXAMINATION: VITAL SIGNS: 97.6 temp, 85 pulse, 126/63 blood pressure, 18 respiratory rate and 100% O2 sat. HEENT: His head is atraumatic, normocephalic. Throat is moist. NECK: Supple. HEART: Regular rate. LUNGS: Decreased breath sounds, but clear to auscultation. ABDOMEN: Soft, obese, nontender. EXTREMITIES: Have +3/4 pitting edema. Still with swollen legs with lots of water in his legs despite Lasix and dobutamine. LABORATORY DATA: He has a 5.4 white count, 9.5 hemoglobin, 29.1 hematocrit with 178 platelets. He has a 141 sodium, potassium is 4.6, BUN is 15, creatinine is 0.6. He should diurese. GFR is greater than 60. Last blood sugar was 112, calcium 7.9, total bili is 0.5, AST is 38, ALT is 40, alk phos 96, total protein is 5.9. Digoxin level was low at 0.6. TSH was normal at 2.79. Troponin I was less than 0.01. ASSESSMENT AND PLAN: Should be another BMP for this morning. He is still on dobutamine. I will discuss this with Dr. Vaughan, the line patroller. He also had a rapid response last night, another one. There is adjustment in his digoxin and his metoprolol. He is clinically improving, but still need more diuresis. We will see what the line patroller has to add to the input of this. Get him out of bed to chair, physical therapy. Need to go to [facility] for subacute rehab before he goes home. Poli Joshi DO [facility] # [id number]
[2018-03-28 07:26] LABS: HEMOGLOBIN 9.6 g/dL (14.0-18.0); MEAN CELL VOLUME 67.2 fl (80.0-105.0); MEAN CORPUSCULAR HEMOGLOBIN 21.9 pg (25.0-35.0); MEAN CORPUSCULAR HGB CONC 32.5 g/dl (31.0-37.0); MEAN PLATELET VOLUME 9.8 fl (7.0-11.0); RBC 4.39 10^6/uL (3.5-6.1); WHITE BLOOD COUNT 5.2 10^3/ul (4.5-11.0)
[2018-03-28 07:41] LABS: ALB/GLOB RATIO 0.9 (1.1-1.8); ALT/SGPT 38 U/L (7-56); AST/SGOT 31 U/L (17-59); BLOOD UREA NITROGEN 16 mg/dL (7-21); CALCIUM 8.2 mg/dL (8.4-10.5); GFR NON-AFRICAN AMERICAN > 60
[2018-03-28 07:44] LABS: B-TYPE NATRIURETIC PEPTIDE 3010 pg/mL (0-450)
--- NOTE | 2018-03-28 07:53 | PN ---
Copied To: Larry Yap MD Attending MD: Larry Yap MD DATE: 03/28/2018 PULMONARY NOTE SUBJECTIVE: The patient appears comfortable this morning. He is not short of breath at rest. PHYSICAL EXAMINATION VITAL SIGNS: Temperature is 97.6, pulse 85, respirations 18, blood pressure 126/63. Oxygen saturation on nasal cannula is 100%. HEENT: Normocephalic, atraumatic. No JVD. CARDIOVASCULAR: Systolic ejection murmur at the lower left sternal border. Positive S3 gallop. LUNGS: Minimal crackles at the bases. Very minimal rhonchi. No wheezing. EXTREMITIES: Mild edema. No cyanosis, no clubbing. Calves are nontender to palpation. GI: Abdomen is soft, nontender and nondistended. Bowel sounds are positive. SKIN: No acute rash. NEUROLOGIC: Limited at the present time. IMPRESSION: 1. Acute congestive heart failure. 2. Chronic obstructive pulmonary disease. 3. Pulmonary hypertension. 4. Mild anemia. PLAN: The patient appears comfortable this morning. He is not short of breath at rest. He does state to feeling much better overall. On physical exam, there is no significant bronchospasm noted. In addition, there is no significant alveolar-arterial gradient. The patient remains on his Revatio - for the pulmonary hypertension. The patient also remains on dobutamine and intravenous Lasix - as per Cardiology. Clinical status of the patient is significantly improved overall. Repeat a.m. labs are ordered. I will discuss the above with Dr. Joshi. Larry Yap MD [facility]
[2018-03-28] MEDS ORDERED: DOBUTamine 500mg/250ml D5W 500 MG/250 ML BAG IV PRN (08:56)
--- NOTE | 2018-03-28 09:42 | PN ---
Copied To: Tony Vaughan MD Attending MD: Tony Vaughan MD DATE: 03/28/2018 SUBJECTIVE: The patient's breathing is much improved. PHYSICAL EXAMINATION: VITAL SIGNS: Blood pressure is 126/63, the heart rates in the 80s. NECK: Negative JVD. LUNGS: Decreased breath sounds. HEART: Reveal S1, S2. EXTREMITIES: Decreasing edema. LABORATORY DATA: Hemoglobin is 9.6. Chemistries, BUN and creatinine is 16 and 0.7. IMPRESSION: 1. Severe pulmonary hypertension. 2. Dyspnea, which is better on IV dobutamine. 3. Aortic insufficiency. 4. Pedal edema. 5. Dyspnea. 6. Depressed ejection fraction to 38%. Given these findings, we will taper off his dobutamine. We will change his medication regimen to include an ROSALIE inhibitor and continue Eliquis for his atrial fibrillation. Tony Vaughan MD
[2018-03-28] MEDS: Metoprolol Succinate 25 mg XL Tab PO SCH (10:07)
[2018-03-28] MEDS: Sildenafil 20 MG TAB PO SCH ×2 (10:08→17:16)
[2018-03-28] MEDS: Digoxin 125 mcg (0.125 mg) Tab PO SCH (13:23)
--- NOTE | 2018-03-28 18:11 | US ---
PROCEDURE: Bilateral carotid artery duplex ultrasound HISTORY: Carotid stenosis syncope PHYSICIAN(S): Tony Daniel MD. TECHNIQUE: Duplex sonography and color-flow Doppler were used to evaluate the carotid bifurcations and limited segments of the vertebral arteries bilaterally. FINDINGS: There is mild smooth heterogeneous plaque noted at the carotid bifurcations bilaterally. The peak systolic velocity in the proximal right internal carotid artery is 92 cm/sec. This corresponds to a 20 to 39% proximal right ICA stenosis. Normal systolic velocities are noted in the proximal right external carotid artery. There is antegrade flow in the right vertebral artery. The peak systolic velocity in the proximal left internal carotid artery is 103 cm/sec. This corresponds to a 20 to 39% proximal left ICA stenosis. Normal systolic velocities are noted in the proximal left external carotid artery. There is antegrade flow in the left vertebral artery. IMPRESSION: 1. Bilateral 20-39% proximal ICA stenoses. 2. Antegrade flow in both vertebral arteries.
--- NOTE | 2018-03-29 07:05 | PN ---
Copied To: Larry Yap MD Attending MD: Larry Yap MD DATE: 03/29/2018 PULMONARY NOTE SUBJECTIVE: The patient appears comfortable this morning. He is not short of breath at rest. He is out of bed, sitting in the chair. PHYSICAL EXAMINATION: VITAL SIGNS: Temperature is 98.4, pulse 84, respirations 18, blood pressure 121/82. Oxygen saturation on nasal cannula is 99%-100%. HEENT: Normocephalic, atraumatic. No JVD. CARDIOVASCULAR: Systolic ejection murmur at the lower left sternal border. Positive S3 gallop. LUNGS: Minimal crackles at the bases. No rhonchi or wheezing this morning. EXTREMITIES: Less edema. No cyanosis, no clubbing. Calves are nontender to palpation. GASTROINTESTINAL: Abdomen is soft, nontender, and nondistended. Bowel sounds are positive. SKIN: No acute rash. NEUROLOGIC: Limited at the present time. IMPRESSION: 1. Acute congestive heart failure. 2. Chronic obstructive pulmonary disease. 3. Pulmonary hypertension. 4. Mild anemia. PLAN: The patient appears comfortable this morning. He is not short of breath at rest. He does state to feeling much better overall. I did discuss the case with the night nurse at length. The night nurse stated that the patient had a good night. On physical exam, there is no significant bronchospasm noted. In addition, there is no significant alveolar-arterial gradient. The patient remains on Revatio - for his pulmonary hypertension. The patient also remains on intravenous Lasix and dobutamine - as per Cardiology. Input by Dr. Vaughan is noted. Clinical status of the patient has certainly improved overall. However, the future status/prognosis of this patient does remain guarded. I will discuss the above with Dr. Joshi. Larry Yap MD [facility]
--- NOTE | 2018-03-29 08:41 | PN ---
Copied To: Poli Joshi DO Attending MD: Poli Joshi DO DATE: 03/29/2018 SUBJECTIVE: I saw him sitting out of bed to chair. He was out of bed to chair all night long with his legs leg. He slept fairly well. No shortness of breath. No chest pain. No abdominal pain. He is hungry. He is still on the dobutamine drip. PHYSICAL EXAMINATION: VITAL SIGNS: He has a 98.4 temp, 84 pulse, 121/82 blood pressure, 18 respiratory rate, 99% O2 sat on nasal cannula. HEENT: His head is atraumatic, normocephalic. HEART: Regular rate. LUNGS: Decreased breath sounds, but clear to auscultation. ABDOMEN: Soft, obese, nontender. EXTREMITIES: Have +3/4 pitting edema bilaterally. MEDICATIONS: He is currently on digoxin, dobutamine IV, Eliquis, Glucophage, Lasix 40 IV b.i.d., Lipitor, Revatio, Toprol and Zestril, which was added. LABORATORY DATA: He has a white count of 5.2, hemoglobin 9.6, hematocrit 29.5, platelets of 177. He has a 141 sodium, potassium 4.6, BUN 15, creatinine 0.6, last blood sugar was 112. Hemoglobin A1c was not done at this time. Calcium 7.9, total bili is 0.5, AST is 38, ALT is 40, alk phos 96. TSH is 2.79. His BNP was 3010. Last blood sugar was 104. ASSESSMENT AND PLAN: He is being seen by Pulmonary and Cardio. When they change him from dobutamine just on Lasix, I will work on getting him to a subacute rehabilitation facility at [facility] before he goes home. Loy Sutton who has got CHF, pulmonary hypertension, bradycardia, weakness. Poli Joshi DO
[2018-03-29] MEDS: Metoprolol Succinate 25 mg XL Tab PO SCH (09:19)
[2018-03-29] MEDS: Sildenafil 20 MG TAB PO SCH ×2 (09:19→17:16)
--- NOTE | 2018-03-29 10:36 | PN ---
Copied To: Tony Vaughan MD Attending MD: Tony Vaughan MD DATE: 03/29/2018 CARDIOLOGY FOLLOWUP SUBJECTIVE: The patient's breathing is much better. He is in the chair. PHYSICAL EXAMINATION: VITAL SIGNS: Blood pressure is 120/62, the heart rates in the 90s. NECK: Negative JVD. LUNGS: Decreased breath sounds bilaterally. HEART: Reveal S1, S2. EXTREMITIES: Have persistent edema. LABORATORY DATA: Hemoglobin is 9.6. Chemistries: BUN and creatinine of 16 and 1.7. IMPRESSION: 1. Resolution of dyspnea. 2. Severe pulmonary hypertension. 3. Persistent pedal edema. 4. Decreased left ventricular function. 5. History of nonobstructive coronary artery disease. 6. Anemia. 7. Chronic obstructive pulmonary disease. Given these findings, we will continue the patient on his medical therapy including Eliquis, his lisinopril as well as his sildenafil. We will continue his p.o. Lasix. We will discontinue his dobutamine today. Tony Vaughan MD
[2018-03-29] MEDS: Digoxin 125 mcg (0.125 mg) Tab PO SCH (13:12)
[2018-03-30 07:38] LABS: HEMOGLOBIN 9.9 g/dL (14.0-18.0); MEAN CELL VOLUME 67.5 fl (80.0-105.0); MEAN CORPUSCULAR HEMOGLOBIN 21.6 pg (25.0-35.0); RBC 4.58 10^6/uL (3.5-6.1); RED CELL DISTRIBUTION WIDTH 20.2 % (11.5-14.5); WHITE BLOOD COUNT 5.5 10^3/ul (4.5-11.0)
[2018-03-30 08:17] LABS: ALBUMIN 2.9 g/dL (3.0-4.8); ALT/SGPT 32 U/L (7-56); AST/SGOT 17 U/L (17-59); BLOOD UREA NITROGEN 19 mg/dL (7-21); CALCIUM 8.4 mg/dL (8.4-10.5); GFR NON-AFRICAN AMERICAN > 60
--- NOTE | 2018-03-30 08:34 | PN ---
Copied To: Larry Yap MD Attending MD: Larry Yap MD DATE: 03/30/2018 PULMONARY NOTE SUBJECTIVE: The patient appears comfortable this morning. He is not short of breath at rest. PHYSICAL EXAMINATION: VITAL SIGNS: Temperature is 98.2, pulse 99, respirations 19, blood pressure 132/53. Oxygen saturation on nasal cannula is 96%. HEENT: Normocephalic, atraumatic. No JVD. CARDIOVASCULAR: Systolic ejection murmur at the lower left sternal border. Positive S3 gallop. LUNGS: Minimal crackles at the bases. No rhonchi. No wheezing. EXTREMITIES: Less edema. No cyanosis or clubbing. Calves are nontender to palpation. GASTROINTESTINAL: Abdomen is soft, nontender, and nondistended. Bowel sounds are positive. SKIN: No acute rash. NEUROLOGIC: Limited at the present time. IMPRESSION: 1. Acute congestive heart failure. 2. Chronic obstructive pulmonary disease. 3. Pulmonary hypertension. 4. Mild anemia. PLAN: The patient appears comfortable this morning. He is not short of breath at rest. He does state to feeling much better overall. On physical exam, there is no significant bronchospasm noted. In addition, there is no significant alveolar-arterial gradient. The patient remains on Revatio - for his pulmonary hypertension. The patient is now off dobutamine. He remains on intravenous Lasix. Input by Cardiology is noted. Clinical status of the patient is significantly improved overall. I will discuss the above with Dr. Joshi. Larry Yap MD [facility]
[2018-03-30] MEDS: Metoprolol Succinate 25 mg XL Tab PO SCH (10:02)
[2018-03-30] MEDS: Sildenafil 20 MG TAB PO SCH ×2 (10:02→17:36)
[2018-03-30] MEDS: Digoxin 125 mcg (0.125 mg) Tab PO SCH (13:38)
--- NOTE | 2018-03-30 19:43 | PN ---
Copied To: Tony Vaughan MD Attending MD: Tony Vaughan MD DATE: 03/30/2018 CARDIOLOGY FOLLOWUP SUBJECTIVE: The patient is resting comfortably without dyspnea. PHYSICAL EXAMINATION: VITAL SIGNS: Blood pressure 110/62, the heart rate is in the 80s. NECK: Negative JVD. LUNGS: Decreased breath sounds bilaterally. HEART: Reveals S1, S2. EXTREMITIES: Without change. LABORATORY DATA: Hemoglobin is 9.9. Chemistries: BUN and creatinine are 19 and 0.8. Glucose is 122. IMPRESSION: 1. Severe pulmonary hypertension. 2. Chronic pedal edema. 3. Status post congestive heart failure. 4. Nonobstructive coronary artery disease. 5. Anemia. 6. Chronic obstructive pulmonary disease. Given these findings, we will change his Lasix to p.o. Lasix. His dobutamine has been stopped. We will discontinue telemetry today. Tony Vaughan MD
--- NOTE | 2018-03-31 01:40 | DS ---
Copied To: Poli Joshi DO Attending MD: Poli Joshi DO HISTORY OF PRESENT ILLNESS: I tried to discharge him yesterday. Apparently, the insurance company did not cooperate with our plan to discharge him to a subacute rehab. We will try again today. He also was trying to get to [place] eventually for permanent living with his power of assistant county attorney. He is comfortable in bed. He slept out of bed last night. His legs are less swollen. He is breathing well. He is on digoxin, Eliquis, Glucophage, Lasix 40 IV b.i.d. that will be switched to p.o. when he leaves, Lipitor, Revatio, Toprol and Zestril. He is eating well. Good spirits, smiling. No shortness of breath or chest pain at this time. PHYSICAL EXAMINATION: VITAL SIGNS: 98.2 temp, 99 pulse, 132/53 blood pressure, 19 respiratory rate, 96% O2 sat on room air. HEENT: His head is atraumatic, normocephalic. HEART: Regular rate. LUNGS: Decreased breath sounds, but clear. ABDOMEN: Soft, obese, nontender. EXTREMITIES: Have +2/4 to +3/4 pitting edema. Yesterday, they were worse, it is improved this morning. LABORATORY DATA: He has a 5.5 white count, 9.9 hemoglobin, 30.9 hematocrit with 241 platelets. He has a 143 sodium, potassium 4.4, BUN 16, creatinine 0.7, calcium is 8.2, total bili is 0.5, AST is 31, ALT is 38, alk phos 92. Last BMP was 3010, which is better. Waiting for him to be discharged. He is being seen by Cardiology and Pulmonology. ASSESSMENT AND PLAN: He has resolution of his shortness of breath. He has had severe pulmonary retention, persistent pedal edema, decreased left ventricular function, history of nonobstructive coronary artery disease, anemia, chronic obstructive pulmonary disease. We will continue with the current therapy. When he leaves, we will change his IV Lasix to p.o. Lasix. Hopefully, he can get to a subacute rehab today. He understands the plan. Discussed with social service liaison and assistant case manager. Poli Joshi DO [facility] # [id number]
[2018-03-31 06:48] LABS: HEMOGLOBIN 9.3 g/dL (14.0-18.0); MEAN CORPUSCULAR HEMOGLOBIN 21.6 pg (25.0-35.0); MEAN CORPUSCULAR HGB CONC 32.3 g/dl (31.0-37.0); MEAN PLATELET VOLUME 9.6 fl (7.0-11.0); RBC 4.3 10^6/uL (3.5-6.1); RED CELL DISTRIBUTION WIDTH 20.2 % (11.5-14.5); WHITE BLOOD COUNT 5.2 10^3/ul (4.5-11.0)
[2018-03-31 07:31] LABS: ALB/GLOB RATIO 0.9 (1.1-1.8); ALBUMIN 2.8 g/dL (3.0-4.8); ALT/SGPT 32 U/L (7-56); AST/SGOT 20 U/L (17-59); BLOOD UREA NITROGEN 19 mg/dL (7-21); GFR NON-AFRICAN AMERICAN > 60
--- NOTE | 2018-03-31 08:03 | PN ---
Copied To: Larry Yap MD Attending MD: Larry Yap MD DATE: 03/31/2018 PULMONARY NOTE SUBJECTIVE: The patient appears very comfortable this morning. He is not short of breath at rest. PHYSICAL EXAMINATION: VITAL SIGNS: (last noted in the computer): Temperature is 99.2, pulse is 90, respirations 18, blood pressure 121/66. Oxygen saturation on nasal cannula is 98%. HEENT: Normocephalic, atraumatic. No JVD. CARDIOVASCULAR: Systolic ejection murmur at the lower left sternal border. Questionable S3 gallop. LUNGS: Very minimal/less crackles at the bases. No rhonchi. No wheezing. EXTREMITIES: Less edema. No cyanosis or clubbing. Calves are nontender to palpation. GI: Abdomen is soft, nontender and nondistended. Bowel sounds are positive. SKIN: No acute rash. NEUROLOGIC: Limited at the present time. IMPRESSION: 1. Acute congestive heart failure. 2. Chronic obstructive pulmonary disease. 3. Pulmonary hypertension. 4. Mild anemia. PLAN: The patient appears very comfortable this morning. He is not short of breath at rest. He does state to feeling much better overall. On physical exam, his bronchospasm has resolved. In addition, there is no significant alveolar-arterial gradient. The patient remains on Revatio - for his pulmonary hypertension. Input by Cardiology (Dr. Vaughan) is also noted. The patient has now been transitioned to oral Lasix. Clinical status of the patient is significantly improved overall. At this point in time, no additional pulmonary intervention is needed or warranted. The patient is for discharge in the very near future. Please call me for any additional pulmonary questions or problems with this patient. I will discuss the above with Dr. Joshi. Lrary Yap MD [facility]
[2018-03-31] MEDS ORDERED: Silver Sulfadiazine 1% Cream (25 gm) TP SCH (10:00)
--- NOTE | 2018-03-31 10:12 | PN ---
Copied To: Poli Joshi DO Attending MD: Poli Joshi DO DATE: 03/31/2018 SUBJECTIVE: He is resting comfortably in bed. He does not like the bed at all. We started talking about his burning in the low back and he has got a sacral ulcer. I called in Dr. Castro, the surgeon to take a look at it. He will be given some Silvadene cream. He also needs to be discharged for subacute rehab, I am waiting for that to happen from his insurance. He is on digoxin, Eliquis, Glucophage, Lasix, Lipitor, Revatio, silver sulfadiazine cream, metoprolol and Zestril. We will try and keep pressure off the sacral ulcer. He had CHF, bradycardia, pulmonary hypertension, sacral ulcer and weakness and needs YARIEL. PHYSICAL EXAMINATION: VITAL SIGNS: He has a 98.7 temp, 60 pulse, 128/62 blood pressure, 20 respiratory rate and 100% O2 sat. HEENT: Head is atraumatic, normocephalic. HEART: Regular rate. LUNGS: Decreased breath sounds, but clear. ABDOMEN: Soft, obese, nontender. EXTREMITIES: +2/4 pitting edema. He has got a grade II sacral ulcer. It is bandaged with Silvadene cream. LABORATORY DATA: He has a 144 sodium, potassium 3.7, BUN 19, creatinine 0.7, GFR is greater than 60, sugar is 88, calcium is 8, total bili is 0.6, AST is 20, ALT is 32, alk phos 81, total protein is 5.9, white count is 5.2, hemoglobin 9.3, hematocrit 28.8, platelets of 218. ASSESSMENT AND PLAN: We will get treatments started on the sacral ulcer, keep pressure off. He has been seen by Pulmonary and Cardiology. He is on the p.o. medications. Waiting for Automatic Pinsetter Adjuster, case picker to get him to a facility that his insurance will allow him to go for subacute rehabilitation. Poli Joshi DO
[2018-03-31] MEDS: Metoprolol Succinate 25 mg XL Tab PO SCH (10:41)
[2018-03-31] MEDS: Sildenafil 20 MG TAB PO SCH ×2 (10:44→17:41)
[2018-03-31] MEDS: Digoxin 125 mcg (0.125 mg) Tab PO SCH (13:57)
[2018-03-31 14:07] VITALS: PULSE 64
--- NOTE | 2018-03-31 16:51 | CP.PCM.CON ---
History of Present Illness - History of Present Illness History of Present Illness: General Surgery Consult Note for Dr. Castro Reason for consult: sacral wound 78M with PMH of CHF, DM, HTN, pulmonary hypertension, and AFib presented with acute CHF and a fall secondary to b/l leg weakness. The patient is a poor historian. He states his legs were extremely swollen and heavy, and he had excessive shortness of breath while walking, which led to his fall. He does not report any. He states that sacral wound started this week. He denies any dizziness, loss of consciousness, or trauma associated with the fall. Surgery was consulted for evaluation of a sacral ulcer that developed this week. Currently he denies fever, chest pain, shortness of breath, abdominal pain, back pain, constipation, or diarrhea. PMH: CHF, DM, HTN, pulmonary hypertension, AFib, COPD, HLD PSH: ventral hernia repair, "R knee surgery" Home meds: Revatio, Eliquis, Lipitor, Digitek, Lasix, Glucophage All: NKDA SocialHx: former smoker 1.5 PPD (quit 27 yrs ago), occasional alcohol, lives alone in an apartment FamHx: denies Review of Systems - Review of Systems All systems: reviewed and no additional remarkable complaints except (as per hPI ) Past Patient History - Infectious Disease Hx of Infectious Diseases: None - Past Social History Smoking Status: Smoker Currrent Status Unknown - CARDIAC Hx Cardiac Disorders: Yes Hx Congestive Heart Failure: Yes (EF 38%) Hx Hypercholesterolemia: Yes Hx Hypertension: Yes - PULMONARY Hx Chronic Obstructive Pulmonary Disease (COPD): Yes - NEUROLOGICAL Hx Neurological Disorder: No - HEENT Hx HEENT Problems: Yes Hx Cataracts: Yes - RENAL Hx Chronic Kidney Disease: No - ENDOCRINE/METABOLIC Hx Diabetes Mellitus Type 2: Yes - HEMATOLOGICAL/ONCOLOGICAL Hx Blood Disorders: No - INTEGUMENTARY Hx Dermatological Problems: No - MUSCULOSKELETAL/RHEUMATOLOGICAL Hx Arthritis: Yes (Knee OA) - GASTROINTESTINAL Hx Gastrointestinal Disorders: No - GENITOURINARY/GYNECOLOGICAL Hx Genitourinary Disorders: No - PSYCHIATRIC Hx Psychophysiologic Disorder: No Hx Substance Use: No Other/Comment: drink alcohol socially - SURGICAL HISTORY Hx Surgeries: Yes Hx Orthopedic Surgery: Yes (Right knee sx) - ANESTHESIA Hx Anesthesia Reactions: No Hx Malignant Hyperthermia: No Meds Allergies/Adverse Reactions: Allergies Allergy/AdvReac Type Severity Reaction Status Date / Time No Known Allergies Allergy Verified 03/23/18 17:05 - Medications Medications: Current Medications Apixaban (Eliquis) 5 mg PO BID [facility], 1928[facility]1983 PRN Reason: Protocol Last Admin: 03/31/18 10:45 Dose: 5 mg Atorvastatin Calcium (Lipitor) 20 mg PO DAILY [facility], 1928[facility]1983 Last Admin: 03/31/18 10:44 Dose: 20 mg Digoxin (Digoxin) 0.125 mg PO 1400 [facility]1983 Last Admin: 03/31/18 13:57 Dose: 0.125 mg Furosemide (Lasix) 40 mg PO BID [facility]1983 Last Admin: 03/31/18 10:44 Dose: 40 mg Lisinopril (Zestril) 5 mg PO DAILY [facility]1983 Last Admin: 03/31/18 10:44 Dose: 5 mg Metformin HCl (Glucophage) 500 mg PO BID [facility]1983 Last Admin: 03/31/18 10:45 Dose: 500 mg Metoprolol Succinate (Toprol Xl) 25 mg PO DAILY [facility] 1928[facility]1983 Last Admin: 03/31/18 10:41 Dose: 25 mg Sildenafil Citrate (Revatio) 20 mg PO BID [facility] 1928[facility]1983 Last Admin: 03/31/18 10:44 Dose: 20 mg Silver Sulfadiazine (Silvadene 1% 25 Gm) 1 gm TP DAILY [facility] 1928[facility]1983 Last Admin: 03/31/18 13:57 Dose: 1 gm Physical Exam - Constitutional Appears: No Acute Distress - Head Exam Head Exam: NORMAL INSPECTION - Eye Exam Eye Exam: EOMI, Normal appearance Pupil Exam: PERRL - ENT Exam ENT Exam: Mucous Membranes Moist - Respiratory Exam Respiratory Exam: NORMAL BREATHING PATTERN - Cardiovascular Exam Cardiovascular Exam: REGULAR RHYTHM - Extremities Exam Extremities exam: Positive for: normal capillary refill - Back Exam Back exam: absent: CVA tenderness (L), CVA tenderness (R) Additional comments: stage 2 sacral wound - Neurological Exam Neurological exam: Alert - Psychiatric Exam Psychiatric exam: Flat Affect - Skin Skin Exam: Dry, Warm Results - Vital Signs Recent Vital Signs: Last Vital Signs Temp 98.7 F 03/31/18 08:18 Pulse 60 03/31/18 10:44 Resp 20 03/31/18 08:18 BP 128/62 03/31/18 10:44 Pulse Ox 100 03/31/18 10:00 - Labs Result Diagrams: 03/31/18 06:00 03/31/18 06:00 Labs: Laboratory Results - last 24 hr 03/30/18 03/30/18 03/30/18 07:11 11:28 16:34 WBC RBC Hgb Hct MCV MCH MCHC RDW Plt Count MPV Sodium Potassium Chloride Carbon Dioxide Anion Gap BUN Creatinine Est GFR ( Amer) Est GFR (Non-Af Amer) POC Glucose (mg/dL) 92 138 H 102 Random Glucose Calcium Total Bilirubin AST ALT Alkaline Phosphatase Total Protein Albumin Globulin Albumin/Globulin Ratio 03/31/18 03/31/18 06:00 06:00 WBC 5.2 RBC 4.30 Hgb 9.3 L Hct 28.8 L MCV 67.0 L MCH 21.6 L MCHC 32.3 RDW 20.2 H Plt Count 218 MPV 9.6 Sodium 144 Potassium 3.7 Chloride 93 L Carbon Dioxide 41 H D Anion Gap 14 BUN 19 Creatinine 0.7 L Est GFR ( Amer) > 60 Est GFR (Non-Af Amer) > 60 POC Glucose (mg/dL) Random Glucose 88 Calcium 8.0 L Total Bilirubin 0.6 AST 20 ALT 32 Alkaline Phosphatase 81 Total Protein 5.9 Albumin 2.8 L Globulin 3.1 Albumin/Globulin Ratio 0.9 L Assessment & Plan - Assessment and Plan (Free Text) Assessment: 78M with PMH of CHF, DM, HTN, pulmonary hypertension, AFib, COPD presented with acute CHF and s/p fall, who developed a stage 2 sacral ulcer. -no surgical intervention needed at this time -silvadene BID with optiform -oob w/ assistance -Air matreess -Positioning Q2H -further recs per Dr. Matthew Davidson PGY2 - Date & Time Date: 03/31/18 Time: 16:30
[2018-03-31 17:28] VITALS: BP 130/64; PULSE 95; RESP 18; TEMP 98.4; O2SAT 99
== END 2018-03-31 22:54 | DRG 293 ==
LOC: ED 16:50 → OBSVTOIN 18:21 → ERH 18:21 → 2RNO 20:30 → 3RSO 03-30 19:16
PROVIDERS: ADMIT Family Medicine; ATTEND Family Medicine
DX: I11.0 Hypertensive heart disease with heart failure (principal); I50.9 Heart failure, unspecified; J44.9 Chronic obstructive pulmonary disease, unspecified; I25.10 Atherosclerotic heart disease of native coronary artery without angina pectoris; D64.9 Anemia, unspecified; E78.00 Pure hypercholesterolemia, unspecified; E11.36 Type 2 diabetes mellitus with diabetic cataract; I27.21 Secondary pulmonary arterial hypertension; I48.91 Unspecified atrial fibrillation; E11.42 Type 2 diabetes mellitus with diabetic polyneuropathy; E78.5 Hyperlipidemia, unspecified; L98.429 Non-pressure chronic ulcer of back with unspecified severity; I35.1 Nonrheumatic aortic (valve) insufficiency; R00.1 Bradycardia, unspecified; Z79.01 Long term (current) use of anticoagulants; Z91.81 History of falling; Z87.891 Personal history of nicotine dependence